=== PATIENT | female | born 1975 | race American Indian/Alaskan Native ===

== ENCOUNTER 2017-02-28 08:41 | Observation (INO) | payer MEDICAID ==
[2017-02-28] MEDS ORDERED: NACL 0.9% 1 ML, VANCOMYCIN VIAL 1,000 MG IR ONE (08:56)
[2017-02-28] MEDS ORDERED: ANCEF/STERILE WATER 2 GM/20 ML 2 GM/20 ML SYRINGE IV NR (09:00)
[2017-02-28] MEDS ORDERED: NACL 0.45% 1000 ML 1,000 ML IV SCH (09:00)
[2017-02-28 09:34] LABS: Basophils % (Auto) 0.5 % (0.0-1.8); Eosinophils % (Auto) 2.8 % (0.0-4.3); Hematocrit 44.9 % (30.3-42.9); Hemoglobin 14.5 gm/dl (10.1-14.3); Mean Corpuscular HGB Conc 32 % (30-34); Mean Corpuscular Hemoglobin 27 pg (28-32); Mean Corpuscular Volume 84 fl (79-97); Platelet Count 168 K/mm3 (140-440); Red Blood Count 5.34 M/mm3 (3.65-5.03); Red Cell Distribution Width 15.6 % (13.2-15.2); White Blood Count 6.6 K/mm3 (4.5-11.0)
[2017-02-28 09:57] LABS: INR 0.92 (0.87-1.13); Partial Thromboplastin Time 30.6 Sec. (24.2-36.6)
[2017-02-28 10:06] LABS: Anion Gap 14 mmol/L; BUN/Creatinine Ratio 13; Blood Urea Nitrogen 9 mg/dL (7-17); Carbon Dioxide 28 mmol/L (22-30); Chloride 101.2 mmol/L (98-107); Glucose 100 mg/dL (65-100); Potassium 4.8 mmol/L (3.6-5.0); Sodium 138 mmol/L (137-145)
[2017-02-28] MEDS ORDERED: MARCAINE 0.5% 30 ML INFILTRATI ONE ×2 (11:19→11:24)
[2017-02-28] MEDS ORDERED: XYLOCAINE 1% 20 mL ONE (11:19)
[2017-02-28] MEDS ORDERED: NACL 0.9% 500 ML IR ONE (11:19)
[2017-02-28] MEDS ORDERED: ANCEF/STERILE WATER 2 GM/20 ML 2 GM/20 ML SYRINGE IV ONE (11:20)
[2017-02-28] MEDS: VERSED IV ONE ×3 (11:42→12:10)
[2017-02-28] MEDS: SUBLIMAZE ONE ×3 (11:42→12:10)
[2017-02-28] MEDS ORDERED: BENADRYL ONE (11:49)
--- NOTE | 2017-02-28 13:59 | XRay Report ---
Single view chest: History: Pacemaker postop. Next Findings: Cardiomegaly. Trachea is midline. No consolidation, pneumothorax or pleural effusion. Stable pacemaker. Impression: No acute cardiopulmonary findings.
[2017-02-28] MEDS ORDERED: ANCEF/NS 1 GM/50 ML 1 GM/50 ML BAG IV SCH (14:00)
[2017-02-28] MEDS: ANCEF/NS 1 GM/50 ML 1 GM/50 ML BAG IV SCH ×2 (15:44→23:18)
[2017-02-28] MEDS: NORCO 5/325 PO PRN ×2 (18:36→22:12)
[2017-03-01 09:08] VITALS: BP 146/96
[2017-03-01] MEDS: NORCO 5/325 PO PRN (09:52)
[2017-03-01] MEDS ORDERED: COZAAR PO SCH (10:00)
[2017-03-01] MEDS ORDERED: COREG PO SCH ×3 (10:00)
[2017-03-01] MEDS ORDERED: ALDACTONE PO SCH (10:00)
--- NOTE | 2017-03-01 10:00 | Short Stay Summary ---
Short Stay Documentation Date of service: 02/28/17 - History H&P: obtained from office - Allergies and Medications Current Medications: Allergies No Known Allergies Allergy (Verified 02/28/17 09:19) Home Medications Medication Instructions Recorded Confirmed Last Taken Type Aspirin EC [Aspirin Enteric Coated 81 mg PO QDAY #30 tablet. 09/06/1602/27/17 08:00 Rx TAB] Losartan [Cozaar] 100 mg PO QDAY #30 tablet 09/07/16 02/28/17 02/27/17 Rx Albuterol Sulfate [Ventolin HFA] 2 puff IH Q4H PRN 02/28/17 02/28/17 Unknown History Carvedilol [Coreg] 25 mg PO BID 02/28/17 02/28/17 02/27/17 History Ferrous Gluconate [Fergon 325 MG 325 mg PO QDAY 02/28/17 02/28/17 02/27/17 History tab] Furosemide [Lasix TAB] 40 mg PO QDAY 02/28/17 02/28/17 02/27/17 History Spironolactone [Aldactone] 25 mg PO QDAY 02/28/17 02/28/17 02/27/17 History Active Medications Acetaminophen/Hydrocodone Bitart ([place] 5/325) 1 each PO Q6H PRN PRN Reason: Pain, Moderate (4-6) Last Admin: 03/01/17 09:52 Dose: 1 each Carvedilol (Coreg) 25 mg PO Q12HR [facility] Last Admin: 03/01/17 09:46 Dose: 25 mg Sodium Chloride (Nacl 0.45% 1000 Ml) 1,000 mls @ 50 mls/hr IV DIRECT JACE Last Admin: 02/28/17 09:41 Dose: 50 mls/hr Losartan Potassium (Cozaar) 100 mg PO QDAY JACE Last Admin: 03/01/17 09:45 Dose: 100 mg Spironolactone (Aldactone) 25 mg PO QDAY [facility] Last Admin: 03/01/17 09:46 Dose: 25 mg - Physical exam Integumentary: other (left pectoralis AICD implantation site pressure dressing removed, telfa and tegaderm dressing intact with minimal amount of old blood noted) - Brief post op/procedure progress note Date of procedure: 02/28/17 Pre-op diagnosis: NICMP Post-op diagnosis: same Procedure: AICD implantation - see operative report Anesthesia: local Estimated blood loss: none Condition: stable - Hospital course Hospital course: Pt underwent successful AICD implantation. Pt admitted for overnight observation. She remained clinically and hemodynamically stable throughout procedure and recovery and is medically cleared for discharge home today. Post- procedure CXR with no evidence of pneumothorax, post-procedure device interrogation showed normal device function. - Disposition Condition at discharge: Stable Disposition: [id number] TO HOME OR SELFCARE - Discharge Diagnoses (1) NICM (nonischemic cardiomyopathy) Status: Chronic (2) Automatic implantable cardioverter-defibrillator in situ Status: Chronic Short Stay Discharge Plan Activity: other (per discharge instructions) Diet: low salt Wound: keep clean and dry, per your surgeon's advice Special Instructions: no heavy lifting, other (left arm immobilizer ) Follow up with: [facility] [Provider Group] - 7 Days ANJELICA CASTILLO MD [Staff Physician] - 7 Days (03/20/2017 @ 8:30AM [place] office ) HAILEY CARUSO MD [Staff Physician] - 7 Days (03/11/2017 @ 8:30AM in [place] office ) PRIMARY CAREMD [Primary Care Provider] - 7 Days Prescriptions: HYDROcodone/APAP 5-325 [[place] 5-325 mg TAB] 1 each PO Q6H PRN #10 tablet PRN Reason: Pain, Moderate (4-6)
== END 2017-03-01 12:51 | disposition home or self-care (01) ==
LOC: CATHLABREC 08:41 → 4A 10:46
PROVIDERS: ADMIT Internal Medicine Cardiovascular Disease; ATTEND Internal Medicine Cardiovascular Disease
DX: I42.9 Cardiomyopathy, unspecified (principal); I50.22 Chronic systolic (congestive) heart failure; I11.0 Hypertensive heart disease with heart failure
CPT/HCPCS: 33249; 36415; 71010; 80048; 82962; 85025; 85610; 85730; 93005; 93010; 96365; 96375; C1722; C1892; C1895; G0378; J0690; J1200; J2250; J3010; J3370; Q9967

== ENCOUNTER 2017-09-23 12:59 | Emergency (ER) | payer MEDICAID, OTHER ==
--- NOTE | 2017-09-23 15:08 | XRay Report ---
RIGHT KNEE, 3 views: History: Swelling, pain The bony architecture is intact without evidence of fracture or dislocation. No significant soft tissue abnormality is seen. IMPRESSION: Normal right knee.
--- NOTE | 2017-09-23 15:26 | Emergency Department Report ---
ED Lower Extremity HPI - General Chief Complaint: Extremity Problem,Nontraumatic Stated Complaint: RIGHT LEG AND KNEE PAIN Time Seen by Provider: 09/23/17 14:56 Source: patient Mode of arrival: Ambulatory Limitations: No Limitations - History of Present Illness Initial Comments: This is a 42-year-old female nontoxic, well nourished in appearance, no acute signs of distress presents to the ED with c/o of right knee pain and calf pain x4 days. Patient denies any trauma. Patient stated developed suddenly and thinks she twisted knee prior to these symptoms. Patient denies any radiation of pain. Patient denies any joint redness, joint swelling, fever, chills, nausea, vomiting, chest pain or shortness breath. Patient denies abnormal or decreased gait. Patient denies any allergies or PMH. MD Complaint: knee injury, other (calf pain) -: days(s) (4) Injury: Knee: Right Place: home Severity: mild Severity scale (0 -10): 8 Improves With: immobilization Worsens With: weight bearing, movement, palpation Associated Symptoms: able to partially bear weight, ambulatory. denies: snap/ pop sensation, swelling, numbness, tingling, unable to bear weight - Related Data Home Medications Medication Instructions Recorded Confirmed Last Taken Albuterol Sulfate [Ventolin HFA] 2 puff IH Q4H PRN 02/28/17 02/28/17 Unknown Carvedilol [Coreg] 25 mg PO BID 02/28/17 02/28/17 02/27/17 Ferrous Gluconate [Fergon 325 MG 325 mg PO QDAY 02/28/17 02/28/17 02/27/17 tab] Furosemide [Lasix TAB] 40 mg PO QDAY 02/28/17 02/28/17 02/27/17 Spironolactone [Aldactone] 25 mg PO QDAY 02/28/17 02/28/17 02/27/17 Previous Rx's Medication Instructions Recorded Last Taken Type Aspirin EC [Aspirin Enteric Coated 81 mg PO QDAY #30 tablet. 09/06/16 08:00 Rx TAB] Losartan [Cozaar] 100 mg PO QDAY #30 tablet 09/07/16 02/27/17 Rx Carvedilol [Coreg] 25 mg PO Q12HR tablet 03/01/17 Unknown Rx HYDROcodone/APAP 5-325 [[place] 1 each PO Q6H PRN #10 tablet 03/01/17 Unknown Rx 5-325 mg TAB] Losartan [Cozaar] 100 mg PO QDAY tablet 03/01/17 Unknown Rx Spironolactone [Aldactone] 25 mg PO QDAY tablet 03/01/17 Unknown Rx Ibuprofen [Motrin] 600 mg PO Q8H PRN #30 tablet 09/23/17 Unknown Rx Allergies Allergy/AdvReac Type Severity Reaction Status Date / Time No Known Allergies Allergy Verified 02/28/17 09:19 ED Review of Systems ROS: Stated complaint: RIGHT LEG AND KNEE PAIN Other details as noted in HPI Constitutional: denies: chills, fever Eyes: denies: eye pain, eye discharge, vision change ENT: denies: ear pain, throat pain Respiratory: denies: cough, shortness of breath, wheezing Cardiovascular: denies: chest pain, palpitations Endocrine: no symptoms reported Gastrointestinal: denies: abdominal pain, nausea, diarrhea Genitourinary: denies: urgency, dysuria, discharge Musculoskeletal: arthralgia. denies: back pain, joint swelling Skin: denies: rash, lesions Neurological: denies: headache, weakness, paresthesias Psychiatric: denies: anxiety, depression Hematological/Lymphatic: denies: easy bleeding, easy bruising ED Past Medical Hx - Past Medical History Hx Hypertension: Yes (on medications 2 years) Hx Heart Attack/AMI: No Hx Congestive Heart Failure: Yes Hx Diabetes: No Hx Sickle Cell Disease: No Hx Headaches / Migraines: Yes (occasional migraines) Hx Asthma: No Hx COPD: No Hx HIV: No Additional medical history: anemia - Surgical History Hx Internal Defibrillator: Yes Additional Surgical History: Hysterectomy - Social History Smoking Status: Never Smoker Substance Use Type: None - Medications Home Medications: Home Medications Medication Instructions Recorded Confirmed Last Taken Type Aspirin EC [Aspirin Enteric Coated 81 mg PO QDAY #30 tablet. 09/06/1602/27/17 08:00 Rx TAB] Losartan [Cozaar] 100 mg PO QDAY #30 tablet 09/07/16 02/28/17 02/27/17 Rx Albuterol Sulfate [Ventolin HFA] 2 puff IH Q4H PRN 02/28/17 02/28/17 Unknown History Carvedilol [Coreg] 25 mg PO BID 02/28/17 02/28/17 02/27/17 History Ferrous Gluconate [Fergon 325 MG 325 mg PO QDAY 02/28/17 02/28/17 02/27/17 History tab] Furosemide [Lasix TAB] 40 mg PO QDAY 02/28/17 02/28/17 02/27/17 History Spironolactone [Aldactone] 25 mg PO QDAY 02/28/17 02/28/17 02/27/17 History Carvedilol [Coreg] 25 mg PO Q12HR tablet 03/01/17 Unknown Rx HYDROcodone/APAP 5-325 [[place] 1 each PO Q6H PRN #10 tablet 03/01/17 Unknown Rx 5-325 mg TAB] Losartan [Cozaar] 100 mg PO QDAY tablet 03/01/17 Unknown Rx Spironolactone [Aldactone] 25 mg PO QDAY tablet 03/01/17 Unknown Rx Ibuprofen [Motrin] 600 mg PO Q8H PRN #30 tablet 09/23/17 Unknown Rx ED Physical Exam - General Limitations: No Limitations General appearance: alert, in no apparent distress - Head Head exam: Present: atraumatic, normocephalic - Eye Eye exam: Present: normal appearance Pupils: Present: normal accommodation - ENT ENT exam: Present: normal exam, mucous membranes moist - Neck Neck exam: Present: normal inspection, full ROM. Absent: tenderness, meningismus, lymphadenopathy - Respiratory Respiratory exam: Present: normal lung sounds bilaterally. Absent: respiratory distress, wheezes, rales, rhonchi, stridor, chest wall tenderness, accessory muscle use, decreased breath sounds, prolonged expiratory - Cardiovascular Cardiovascular Exam: Present: regular rate, normal rhythm, normal heart sounds. Absent: irregular rhythm, systolic murmur, diastolic murmur, rubs, gallop - GI/Abdominal GI/Abdominal exam: Present: soft, normal bowel sounds. Absent: distended, tenderness, guarding, rebound, rigid, diminished bowel sounds - Rectal Rectal exam: Present: deferred - Extremities Exam Extremities exam: Present: normal inspection, full ROM, tenderness, normal capillary refill. Absent: joint swelling - Expanded Lower Extremity Exam Right Hip exam: Present: normal inspection, full ROM. Absent: tenderness, swelling Upper Leg exam: Present: normal inspection, full ROM. Absent: tenderness, swelling Knee exam: Present: normal inspection, full ROM, tenderness, full knee extension. Absent: swelling, abrasion, laceration, ecchymosis, deformity, crepidus, dislocation, erythema, effusion, pain w/ pronation/supination, posterior draw sign, pain/laxity with valgus, pain/laxity with varus Lower Leg exam: Present: normal inspection, full ROM, tenderness (calf region). Absent: swelling, abrasion, laceration, ecchymosis, deformity, crepidus, dislocation, erythema, palpable cord, Estefany's sign Ankle exam: Present: normal inspection, full ROM. Absent: tenderness, swelling , abrasion, laceration, ecchymosis, deformity, crepidus, dislocation, erythema, anterior draw sign Foot/Toe exam: Present: normal inspection, full ROM. Absent: tenderness, swelling Neuro vascular tendon exam: Present: no vascular compromise. Absent: pulse deficit, abnormal cap refill, motor deficit, sensory deficit, tendon deficit, extremity cold to touch, pallor, abnormal 2-point discrimination, decreased fine /light touch, foot drop, peroneal nerve deficit, significant pain with passive ROM of distal joint Gait: Positive: observed and normal - Back Exam Back exam: Present: normal inspection, full ROM - Neurological Exam Neurological exam: Present: alert, oriented X3, normal gait - Psychiatric Psychiatric exam: Present: normal affect, normal mood - Skin Skin exam: Present: warm, dry, intact, normal color. Absent: rash ED Course Vital Signs 09/23/17 13:57 Temperature 98 F Pulse Rate 93 H Respiratory 20 Rate Blood Pressure 132/87 O2 Sat by Pulse 95 Oximetry - Reevaluation(s) Reevaluation #1: 09/23/17 16:04 Patient is speaking in full sentences with no signs of distress noted. ED Lower Extremity MDM - Medical Decision Making This is a 42-year-old female that presents with right knee strain. Patient is stable and was examined by me. I referred patient to an orthopedic doctor for further evaluation for possible MRI. Doppler US for r/o DVT/SVT obtained and negative. X-ray has been obtained and dictated by the radiologist. Patient is notified of the x-ray report with noted by the patient. Patient does have normal gait with no tenderness and no joint swelling. No ecchymosis. no joint redness or swelling. Not warm to touch. No signs of cellulites present. Patient received a knee immobilize. Patient was instructed to RICE therapy. Patient received Motrin for pain. Patient is discharged with Motrin. At time of discharge, the patient does not seem toxic or ill in appearance. No acute signs of distress noted. Patient agrees to discharge treatment plan of care. No further questions noted by the patient. Critical care attestation.: If time is entered above; I have spent that time in minutes in the direct care of this critically ill patient, excluding procedure time. ED Disposition Clinical Impression: Strain of right knee Qualifiers: Encounter type: initial encounter Qualified Code(s): S86.911A - Strain of unspecified muscle(s) and tendon(s) at lower leg level, right leg, initial encounter Disposition: TO HOME OR SELFCARE Is pt being admited?: No Does the pt Need Aspirin: No Condition: Stable Instructions: Knee Pain (ED), RICE Therapy (ED), Knee Immobilizer (ED), Ibuprofen (By mouth) Additional Instructions: Follow-up with a orthopedic doctor in 3-5 days or if symptoms worsen and continue return to emergency room as soon as possible. Prescriptions: Ibuprofen [Motrin] 600 mg PO Q8H PRN #30 tablet PRN Reason: Pain Referrals: PAZ FAM MD [Primary Care Provider] - 3-5 Days PRIMARY CARE, [Referring] - 3-5 Days DIOGENES KENDALL MD [Staff Physician] - 3-5 Days [facility] [place] [Outside] - 3-5 Days [facility] [Outside] - 3-5 Days Forms: Work/School Release Form(ED)
[2017-09-23] MEDS ORDERED: MOTRIN PO ONE (16:04)
[2017-09-23 17:18] VITALS: BP 146/100
--- NOTE | 2017-09-25 13:41 | Vascular Lab Report ---
Right Lower Extremity Venous Duplex Study: Reason for Exam: Pain and swelling of the right lower extremity. Comments on the Right: All veins visualized are freely compressible without evidence of internal echogenicity. Flow is spontaneous and phasic throughout. No evidence of acute or chronic thrombus is seen in any of the vessels visualized. A soft tissue change in the right knee area is consistent with a Yoon's cyst. Comments on the Left: A limited duplex study was done of the proximal veins of the left lower extremity. All veins visualized are freely compressible without evidence of internal echogenicity. Flow is spontaneous and phasic throughout. No evidence of acute or chronic thrombus is seen in any of the vessels visualized. Impression: No evidence of acute or chronic deep venous thrombosis in the right lower extremity. A soft tissue change in the right knee area is consistent with a Yoon's cyst.
== END 2017-09-23 17:18 | disposition home or self-care (01) ==
LOC: ED 12:59
DX: S86.911A Strain of unspecified muscle(s) and tendon(s) at lower leg level, right leg, initial encounter (principal); M79.661 Pain in right lower leg; I11.0 Hypertensive heart disease with heart failure; G43.909 Migraine, unspecified, not intractable, without status migrainosus; Z86.2 Personal history of diseases of the blood and blood-forming organs and certain disorders involving the immune mechanism; Z90.710 Acquired absence of both cervix and uterus; X50.1XXA Overexertion from prolonged static or awkward postures, initial encounter; Y93.89 Activity, other specified; Y99.8 Other external cause status; Y92.89 Other specified places as the place of occurrence of the external cause
CPT/HCPCS: 99284

== ENCOUNTER 2019-03-30 16:52 | Inpatient (IN) | payer OTHER ==
--- NOTE | 2019-03-30 17:48 | Event Note ---
ED Screening Note Date of service: 03/30/19 Time: 17:43 ED Screening Note: 43 y o female presents to Ed cc of 710 chest pain x thhis am pmh: htn, chf This initial assessment/diagnostic orders/clinical plan/treatment(s) is/are subject to change based on patients health status, clinical progression and re- assessment by fellow clinical providers in the ED. Further treatment and workup at subsequent clinical providers discretion. Patient/guardian urged not to elope from the ED as their condition may be serious if not clinically assessed and managed. Initial orders include: labs
--- NOTE | 2019-03-30 18:20 | XRay Report ---
CHEST 2 VIEWS INDICATION: Dyspnea. COMPARISON: 02/28/2017. FINDINGS: Support devices: ICD unchanged. Heart: Moderate cardiomegaly. Lungs/Pleura: Mild edema. Negative for localized infiltrate. No significant pleural effusion. IMPRESSION: Cardiomegaly with mild edema. Signer Name: Margarito Fallon MD Signed: 03/30/2019 6:16 PM Workstation Name: [id number]
[2019-03-30 19:40] LABS: Basophils % (Auto) 0.4 % (0.0-1.8); Eosinophils # (Auto) 0.2 K/mm3 (0.0-0.4); Hematocrit 35.8 % (30.3-42.9); Hemoglobin 11.7 gm/dl (10.1-14.3); Lymphocytes # (Auto) 2.3 K/mm3 (1.2-5.4); Lymphocytes % (Auto) 29.3 % (13.4-35.0); Mean Corpuscular HGB Conc 33 % (30-34); Mean Corpuscular Volume 87 fl (79-97); Monocytes # (Auto) 0.5 K/mm3 (0.0-0.8); Monocytes % (Auto) 6.3 % (0.0-7.3); Platelet Count 165 K/mm3 (140-440); Red Blood Count 4.13 M/mm3 (3.65-5.03); Red Cell Distribution Width 14.7 % (13.2-15.2)
[2019-03-30 19:54] LABS: BUN/Creatinine Ratio 11; Blood Urea Nitrogen 11 mg/dL (7-17); Calcium 8.9 mg/dL (8.4-10.2); Hemolysis Index 0
--- NOTE | 2019-03-30 22:23 | Emergency Department Report ---
ED General Adult HPI - General Chief complaint: Dyspnea/Respdistress Stated complaint: SOB/COUGH Time Seen by Provider: 03/30/19 22:08 Source: patient Mode of arrival: Ambulatory Limitations: No Limitations - History of Present Illness Initial comments: 44-year-old female with a history of CHF with an ejection fraction of 15% presents with complaint of shortness of breath that worsened since this morning. Patient states that she's also had dyspnea with exertion describes orthopnea as well. Patient states she's been compliant with all of her medications. Patient states that she had noted some wheezing but denies any chest pain. Patient states she's had no cough. Severity scale (0 -10): 0 - Related Data Home Medications Medication Instructions Recorded Confirmed Last Taken Albuterol Sulfate [Ventolin HFA] 2 puff IH Q4H PRN 02/28/17 02/28/17 Unknown Ferrous Gluconate [Fergon 325 MG 325 mg PO QDAY 02/28/17 02/28/17 02/27/17 tab] Furosemide [Lasix TAB] 40 mg PO QDAY 02/28/17 02/28/17 02/27/17 Spironolactone [Aldactone] 25 mg PO QDAY 02/28/17 02/28/17 02/27/17 carvediloL [Coreg] 25 mg PO BID 02/28/17 02/28/17 02/27/17 Previous Rx's Medication Instructions Recorded Last Taken Type Aspirin EC [Halfprin EC] 81 mg PO QDAY #30 tablet. 09/06/16 02/27/17 08:00 Rx Losartan [Cozaar] 100 mg PO QDAY #30 tablet 09/07/16 02/27/17 Rx HYDROcodone/APAP 5-325 [[place] 1 each PO Q6H PRN #10 tablet 03/01/17 Unknown Rx 5-325 mg TAB] Losartan [Cozaar] 100 mg PO QDAY tablet 03/01/17 Unknown Rx Spironolactone [Aldactone] 25 mg PO QDAY tablet 03/01/17 Unknown Rx carvediloL [Coreg] 25 mg PO Q12HR tablet 03/01/17 Unknown Rx Ibuprofen [Motrin] 600 mg PO Q8H PRN #30 tablet 09/23/17 Unknown Rx Allergies Allergy/AdvReac Type Severity Reaction Status Date / Time No Known Allergies Allergy Verified 03/30/19 17:44 ED Review of Systems ROS: Stated complaint: SOB/COUGH Other details as noted in HPI Constitutional: denies: chills, fever Eyes: denies: eye pain, eye discharge, vision change ENT: denies: ear pain, throat pain Respiratory: SOB at rest Cardiovascular: denies: chest pain, palpitations Endocrine: no symptoms reported Gastrointestinal: denies: abdominal pain, nausea, diarrhea Genitourinary: denies: urgency, dysuria, discharge Musculoskeletal: denies: back pain, joint swelling, arthralgia Skin: denies: rash, lesions Neurological: denies: headache, weakness, paresthesias Psychiatric: denies: anxiety, depression Hematological/Lymphatic: denies: easy bleeding, easy bruising ED Past Medical Hx - Past Medical History Previous Medical History?: Yes Hx Hypertension: Yes (on medications 2 years) Hx Heart Attack/AMI: No Hx Congestive Heart Failure: Yes Hx Diabetes: No Hx Sickle Cell Disease: No Hx Headaches / Migraines: Yes (occasional migraines) Hx Asthma: No Hx COPD: No Hx HIV: No Additional medical history: anemia - Surgical History Past Surgical History?: Yes Hx Internal Defibrillator: Yes Additional Surgical History: Hysterectomy - Social History Smoking Status: Never Smoker Substance Use Type: None - Medications Home Medications: Home Medications Medication Instructions Recorded Confirmed Last Taken Type Aspirin EC [Halfprin EC] 81 mg PO QDAY #30 tablet. 09/06/16 02/28/17 02/27/17 08:00 Rx Losartan [Cozaar] 100 mg PO QDAY #30 tablet 09/07/16 02/28/17 02/27/17 Rx Albuterol Sulfate [Ventolin HFA] 2 puff IH Q4H PRN 02/28/17 02/28/17 Unknown History Ferrous Gluconate [Fergon 325 MG 325 mg PO QDAY 02/28/17 02/28/17 02/27/17 History tab] Furosemide [Lasix TAB] 40 mg PO QDAY 02/28/17 02/28/17 02/27/17 History Spironolactone [Aldactone] 25 mg PO QDAY 02/28/17 02/28/17 02/27/17 History carvediloL [Coreg] 25 mg PO BID 02/28/17 02/28/17 02/27/17 History HYDROcodone/APAP 5-325 [[place] 1 each PO Q6H PRN #10 tablet 03/01/17 Unknown Rx 5-325 mg TAB] Losartan [Cozaar] 100 mg PO QDAY tablet 03/01/17 Unknown Rx Spironolactone [Aldactone] 25 mg PO QDAY tablet 03/01/17 Unknown Rx carvediloL [Coreg] 25 mg PO Q12HR tablet 03/01/17 Unknown Rx Ibuprofen [Motrin] 600 mg PO Q8H PRN #30 tablet 09/23/17 Unknown Rx ED Physical Exam - General Limitations: No Limitations General appearance: alert, other (mild distress; awake) - Head Head exam: Present: atraumatic, normocephalic - Eye Eye exam: Present: normal appearance - ENT ENT exam: Present: mucous membranes moist - Neck Neck exam: Present: normal inspection - Respiratory Respiratory exam: Present: respiratory distress (mild), wheezes (appreciated in bases of lungs) - Cardiovascular Cardiovascular Exam: Present: regular rate, normal rhythm. Absent: systolic murmur, diastolic murmur, rubs, gallop - GI/Abdominal GI/Abdominal exam: Present: soft, normal bowel sounds - Extremities Exam Extremities exam: Present: normal inspection - Back Exam Back exam: Present: normal inspection - Neurological Exam Neurological exam: Present: alert, oriented X3 - Psychiatric Psychiatric exam: Present: normal affect, normal mood - Skin Skin exam: Present: warm, dry, intact, normal color. Absent: rash ED Course Vital Signs 03/30/19 03/30/19 03/30/19 17:42 22:04 22:08 Temperature 97.9 F Pulse Rate 97 H 82 Respiratory 20 20 22 Rate Blood Pressure Blood Pressure 146/93 129/74 [Right] O2 Sat by Pulse 96 98 Oximetry 03/30/19 03/30/19 03/30/19 22:15 22:45 23:00 Temperature Pulse Rate 82 88 86 Respiratory 34 H 23 16 Rate Blood Pressure 130/82 142/76 132/71 Blood Pressure [Right] O2 Sat by Pulse 98 98 96 Oximetry 03/30/19 03/30/19 23:15 23:31 Temperature Pulse Rate 86 85 Respiratory 14 27 H Rate Blood Pressure 132/71 132/71 Blood Pressure [Right] O2 Sat by Pulse 97 96 Oximetry ED Medical Decision Making - Lab Data Result diagrams: 03/30/19 19:15 03/30/19 19:15 - EKG Data EKG shows normal: sinus rhythm Rate: normal - EKG Data Interpretation: LVH - Medical Decision Making Patient has a CT that shows no evidence of pulmonary embolism. Patient received Lasix IV therapy while here in emergency department. Patient also received albuterol and was placed on oxygen by nasal cannula. Patient to be admitted to the hospitalist service for continued management and treatment. - Differential Diagnosis CHF exacerbation; NSTEMI; STEMI; electrolyte abnormality; anemia Critical care attestation.: If time is entered above; I have spent that time in minutes in the direct care of this critically ill patient, excluding procedure time. ED Disposition Clinical Impression: Congestive heart failure Disposition: OP ADMIT IP TO THIS HOSP Is pt being admited?: Yes Does the pt Need Aspirin: No Condition: Fair Referrals: PRIMARY CARE, [Primary Care Provider] - 3-5 Days Time of Disposition: 01:14 Print Language: ROMANSH
[2019-03-30] MEDS ORDERED: FUROSEMIDE 40 MG/4 ML INJ IV ONE (22:39)
[2019-03-30] MEDS ORDERED: ALBUTEROL 2.5 MG/3 ML NEBU IH ONE (22:39)
--- NOTE | 2019-03-31 00:57 | Cat Scan Report ---
CT angiography of the chest with 2-D reconstructions INDICATION: Shortness of breath Thin section axial images were obtained as well as 2-D reformatted MIP images in all 3 planes FINDINGS: There is no hilar or mediastinal adenopathy. No left pleural or pericardial effusion. Lung windows show no nodules, masses or infiltrates. There is no thoracic aortic aneurysm or dissection pr esent. Routine axial images as well as 2-D reconstructions through the pulmonary arteries show no akilah dence of emboli. Cardiomegaly is seen with ICD in place on the left. There is interstitial edema with septal thickening and slight density at the lung bases with a minimal right effusion. IMPRESSION: The findings are likely due to early heart failure. No pneumonia or PTE seen. Automated exposure control was utilized to diminish radiation dose. Signer Name: Doug Sosa MD Signed: 03/31/2019 12:52 AM Workstation Name: [id number]
--- NOTE | 2019-03-31 03:26 | History and Physical Report ---
<NERILARA M. - Last Filed: 03/31/19 05:26> History of Present Illness Date of examination: 03/31/19 Date of admission: 03/31/2019 Chief complaint: CHF Exacerbation History of present illness: Patient is a 43-year-old female patient with past medical history of anemia, sleep apnea ,hypertension and CHF who presents to [facility] ER with complaints of dyspnea on exertion and shortness of breath pain since this afternoon. Patient states she has been finding it increasingly more difficult to ambulate from her mailbox to her front door over the last couple weeks. Patient states she finds relief by resting, and her shortness of breath has been exacerbated by walks. Currently denies any chest pain. Past History Past Medical History: heart failure, hypertension Past Surgical History: hysterectomy Social history: denies: smoking, alcohol abuse Family history: diabetes, hypertension Medications and Allergies Allergies Allergy/AdvReac Type Severity Reaction Status Date / Time No Known Allergies Allergy Verified 03/30/19 17:44 Home Medications Medication Instructions Recorded Confirmed Last Taken Type Aspirin EC [Halfprin EC] 81 mg PO QDAY #30 tablet. 09/06/16 03/31/19 02/27/17 08:00 Rx Losartan [Cozaar] 100 mg PO QDAY #30 tablet 09/07/16 03/31/19 02/27/17 Rx carvediloL [Coreg] 25 mg PO BID 02/28/17 03/31/19 02/27/17 History HYDROcodone/APAP 5-325 [[place] 1 each PO Q6H PRN #10 tablet 03/01/17 03/31/19 Unknown Rx 5-325 mg TAB] Furosemide [Lasix TAB] 40 mg PO QDAY #30 tablet 04/02/19 Unknown Rx Review of Systems Constitutional: fatigue Ears, nose, mouth and throat: no decreased hearing, no nose pain, no nasal congestion Breasts: no discharge, no pain Cardiovascular: shortness of breath, dyspnea on exertion, high blood pressure Respiratory: no cough, no pain, no home oxygen Gastrointestinal: no vomiting, no diarrhea, no constipation Genitourinary Female: no pelvic pain, no flank pain Menstruation: post hysterectomy Rectal: no pain Musculoskeletal: no low back pain, no shooting leg pain, no leg numbness/tingling Integumentary: no rash, no boils, no dryness Neurological: no seizures, no syncope, no tremors Psychiatric: no disorientation, no hallucinations, no hopelessness, no anhedonia Endocrine: no heat intolerance, no polyphagia, no excessive thirst Hematologic/Lymphatic: no easy bruising, no easy bleeding Allergic/Immunologic: wheezing Exam - Constitutional Vitals: Temp Pulse Resp BP Pulse Ox 97.9 F 80 30 H 120/68 98 03/30/19 17:42 03/31/19 02:31 03/31/19 02:31 03/31/19 02:31 03/31/19 02:31 General appearance: Present: no acute distress - EENT Eyes: Present: PERRL ENT: hearing intact, clear oral mucosa - Neck Neck: Present: supple, normal ROM - Respiratory Respiratory effort: normal Respiratory: bilateral: CTA - Cardiovascular Heart Sounds: Present: S1 & S2. Absent: rub, click - Extremities Extremities: pulses symmetrical, No edema Peripheral Pulses: within normal limits - Abdominal General gastrointestinal: Present: soft, non-tender, non-distended, normal bowel sounds Female genitourinary: Present: normal - Integumentary Integumentary: Present: clear, warm, dry - Musculoskeletal Musculoskeletal: gait normal, strength equal bilaterally - Psychiatric Psychiatric: appropriate mood/affect, intact judgment & insight - Neurologic Neurologic: CNII-XII intact, moves all extremities Results - Labs CBC & Chem 7: 03/30/19 19:15 03/30/19 19:15 Labs: Laboratory Last Values WBC 7.8 K/mm3 (4.5-11.0) 03/30/19 19:15 RBC 4.13 M/mm3 (3.65-5.03) 03/30/19 19:15 Hgb 11.7 gm/dl (10.1-14.3) 03/30/19 19:15 Hct 35.8 % (30.3-42.9) 03/30/19 19:15 MCV 87 fl (79-97) 03/30/19 19:15 MCH 28 pg (28-32) 03/30/19 19:15 MCHC 33 % (30-34) 03/30/19 19:15 RDW 14.7 % (13.2-15.2) 03/30/19 19:15 Plt Count 165 K/mm3 (140-440) 03/30/19 19:15 Lymph % (Auto) 29.3 % (13.4-35.0) 03/30/19 19:15 [place] % (Auto) 6.3 % (0.0-7.3) 03/30/19 19:15 Eos % (Auto) 2.0 % (0.0-4.3) 03/30/19 19:15 Baso % (Auto) 0.4 % (0.0-1.8) 03/30/19 19:15 Lymph # 2.3 K/mm3 (1.2-5.4) 03/30/19 19:15 [place] # 0.5 K/mm3 (0.0-0.8) 03/30/19 19:15 Eos # 0.2 K/mm3 (0.0-0.4) 03/30/19 19:15 Baso # 0.0 K/mm3 (0.0-0.1) 03/30/19 19:15 Seg Neutrophils % 62.0 % (40.0-70.0) 03/30/19 19:15 Seg Neutrophils # 4.8 K/mm3 (1.8-7.7) 03/30/19 19:15 Sodium 139 mmol/L (137-145) 03/30/19 19:15 Potassium 4.2 mmol/L (3.6-5.0) 03/30/19 19:15 Chloride 102.2 mmol/L (98-107) 03/30/19 19:15 Carbon Dioxide 21 mmol/L (22-30) L 03/30/19 19:15 Anion Gap 20 mmol/L 03/30/19 19:15 BUN 11 mg/dL (7-17) 03/30/19 19:15 Creatinine 1.0 mg/dL (0.7-1.2) 03/30/19 19:15 Estimated GFR > 60 ml/min 03/30/19 19:15 BUN/Creatinine Ratio 11 % 03/30/19 19:15 Glucose 95 mg/dL (65-100) 03/30/19 19:15 Calcium 8.9 mg/dL (8.4-10.2) 03/30/19 19:15 Troponin T < 0.010 ng/mL (0.00-0.029) 03/30/19 19:15 NT-Pro-B Natriuret Pep 1898 pg/mL (0-450) H 03/30/19 19:15 - Imaging and Cardiology EKG: report reviewed (sinus rhythm,lvh with secondary repolarization abnormality) Chest x-ray: report reviewed (cardiomegaly with mild edema) CT scan - chest: report reviewed (Interstitial edema with septal thickening and slight density at lung bases with minimal right effusion. Findings likely due to early heart failure) Assessment and Plan Assessment and plan: CHF exacerbation -09/06/18 echocardiogram EF 15-20% -Lasix 40 mg IV twice a day - cardiology consult Hypertension -Resume home meds after reconciliation -Monitor q shift Obesity - lifestyle modifications DVT Prophylaxis - Heparin -SCDs Advance Directives: Yes VTE prophylaxis?: Chemical Plan of care discussed with patient/family: Yes <KAMINI GUARDADO - Last Filed: 04/04/19 23:48> History of Present Illness Date of admission: 03/31/19 01:15 Medications and Allergies Active Meds: Active Medications Acetaminophen (Tylenol) 650 mg PO Q4H PRN PRN Reason: Pain MILD(1-3)/Fever >100.5/BAILEY Aspirin (Halfprin Ec) 81 mg PO QDAY JACE Carvedilol (Coreg) 25 mg PO BID JACE Furosemide (Lasix) 40 mg IV 0600,1800 JACE Heparin Sodium (Porcine) (Heparin) 5,000 unit SUB-Q Q12HR JACE Miscellaneous Medication (Losartan [Cozaar]) 100 mg PO QDAY JACE Ondansetron HCl (Zofran) 4 mg IV Q8H PRN PRN Reason: Nausea And Vomiting Sodium Chloride (Sodium Chloride Flush Syringe 10 Ml) 10 ml IV BID JACE Sodium Chloride (Sodium Chloride Flush Syringe 10 Ml) 10 ml IV PRN PRN PRN Reason: LINE FLUSH Exam - Constitutional Vitals: Temp Pulse Resp BP Pulse Ox 97.9 F 81 18 123/69 99 03/30/19 17:42 03/31/19 04:31 03/31/19 04:00 03/31/19 04:31 03/31/19 04:31 Results - Labs CBC & Chem 7: 03/30/19 19:15 04/01/19 04:30 Labs: Laboratory Last Values WBC 7.8 K/mm3 (4.5-11.0) 03/30/19 19:15 RBC 4.13 M/mm3 (3.65-5.03) 03/30/19 19:15 Hgb 11.7 gm/dl (10.1-14.3) 03/30/19 19:15 Hct 35.8 % (30.3-42.9) 03/30/19 19:15 MCV 87 fl (79-97) 03/30/19 19:15 MCH 28 pg (28-32) 03/30/19 19:15 MCHC 33 % (30-34) 03/30/19 19:15 RDW 14.7 % (13.2-15.2) 03/30/19 19:15 Plt Count 165 K/mm3 (140-440) 03/30/19 19:15 Lymph % (Auto) 29.3 % (13.4-35.0) 03/30/19 19:15 [place] % (Auto) 6.3 % (0.0-7.3) 03/30/19 19:15 Eos % (Auto) 2.0 % (0.0-4.3) 03/30/19 19:15 Baso % (Auto) 0.4 % (0.0-1.8) 03/30/19 19:15 Lymph # 2.3 K/mm3 (1.2-5.4) 03/30/19 19:15 [place] # 0.5 K/mm3 (0.0-0.8) 03/30/19 19:15 Eos # 0.2 K/mm3 (0.0-0.4) 03/30/19 19:15 Baso # 0.0 K/mm3 (0.0-0.1) 03/30/19 19:15 Seg Neutrophils % 62.0 % (40.0-70.0) 03/30/19 19:15 Seg Neutrophils # 4.8 K/mm3 (1.8-7.7) 03/30/19 19:15 Sodium 139 mmol/L (137-145) 03/30/19 19:15 Potassium 4.2 mmol/L (3.6-5.0) 03/30/19 19:15 Chloride 102.2 mmol/L (98-107) 03/30/19 19:15 Carbon Dioxide 21 mmol/L (22-30) L 03/30/19 19:15 Anion Gap 20 mmol/L 03/30/19 19:15 BUN 11 mg/dL (7-17) 03/30/19 19:15 Creatinine 1.0 mg/dL (0.7-1.2) 03/30/19 19:15 Estimated GFR > 60 ml/min 03/30/19 19:15 BUN/Creatinine Ratio 11 % 03/30/19 19:15 Glucose 95 mg/dL (65-100) 03/30/19 19:15 Calcium 8.9 mg/dL (8.4-10.2) 03/30/19 19:15 Troponin T < 0.010 ng/mL (0.00-0.029) 03/30/19 19:15 NT-Pro-B Natriuret Pep 1898 pg/mL (0-450) H 03/30/19 19:15 Assessment and Plan Assessment and plan: 43-year-old woman with a history of CHF, EF of 15%, hypertension, cirrhosis emergency room with complaints of shortness of breath, PND, orthopnea, generalized weakness. She states she is compliant with medication and diet. Patient with acute systolic heart failure, agree with IV Lasix, in addition start beta rosales, ARB, aspirin, check cardiac enzymes, echo, monitor I/Os
[2019-03-31] MEDS ORDERED: ACETAMINOPHEN 325 MG TAB PO PRN (03:42)
[2019-03-31] MEDS ORDERED: ONDANSETRON 4 MG/2 ML INJ IV PRN (03:42)
[2019-03-31] MEDS ORDERED: FUROSEMIDE 40 MG/4 ML INJ ONE (06:25)
[2019-03-31] MEDS: FUROSEMIDE 40 MG/4 ML INJ IV SCH ×2 (06:25→19:15)
[2019-03-31 07:52] LABS: Creatine Kinase MB 2.5 ng/mL (0.0-4.0)
--- NOTE | 2019-03-31 11:03 | Consultation ---
History of Present Illness Consult date: 03/31/19 Requesting physician: LARA HE Consult reason: congestive heart failure History of present illness: The pt is a 43 YO female with a past medical history of NICMP, AICD in situ (placed 02/2017), HTN, DM, sleep apnea, pulm HTN. She is followed in our office by Dr. Hughes. She presented with c/o generalized weakness, SOB, orthopnea and mild BLE swelling for 1 day prior to arrival. She also noted some wheezing. She denies any chest pain, palpitations, n/v, diaphoresis, dizziness or syncope. She reports compliance with her home medications. Echo done 12/2016 showed EF 15-20%, restrictive diastolic filling, RA mod e nlarged, mild to mod MR, mod TR, mild to mod pulm HTN with RVSP 40mmHg. Lexiscan MPI stress test done 08/2016 was negative for ischemia, EF 17%. Past History Past Medical History: diabetes, heart failure, hypertension, other ([place]) Past Surgical History: hysterectomy, Other (AICD) Social history: denies: smoking, alcohol abuse Family history: diabetes, hypertension Medications and Allergies Allergies Allergy/AdvReac Type Severity Reaction Status Date / Time No Known Allergies Allergy Verified 03/30/19 17:44 Home Medications Medication Instructions Recorded Confirmed Last Taken Type Aspirin EC [Halfprin EC] 81 mg PO QDAY #30 tablet. 09/06/16 03/31/19 02/27/17 08:00 Rx Losartan [Cozaar] 100 mg PO QDAY #30 tablet 09/07/16 03/31/19 02/27/17 Rx carvediloL [Coreg] 25 mg PO BID 02/28/17 03/31/19 02/27/17 History HYDROcodone/APAP 5-325 [[place] 1 each PO Q6H PRN #10 tablet 03/01/17 Unknown Rx 5-325 mg TAB] Active Meds: Active Medications Acetaminophen (Tylenol) 650 mg PO Q4H PRN PRN Reason: Pain MILD(1-3)/Fever >100.5/[place] Aspirin (Halfprin Ec) 81 mg PO QDAY JACE Carvedilol (Coreg) 25 mg PO BID JACE Furosemide (Lasix) 40 mg IV 0600,1800 JACE Last Admin: 03/31/19 06:25 Dose: 40 mg Documented by: Heparin Sodium (Porcine) (Heparin) 5,000 unit SUB-Q Q12HR [facility] Losartan Potassium (Cozaar) 100 mg PO QDAY JACE Ondansetron HCl (Zofran) 4 mg IV Q8H PRN PRN Reason: Nausea And Vomiting Sodium Chloride (Sodium Chloride Flush Syringe 10 Ml) 10 ml IV BID JACE Sodium Chloride (Sodium Chloride Flush Syringe 10 Ml) 10 ml IV PRN PRN PRN Reason: LINE FLUSH Review of Systems Constitutional: no fever, no chills, no sweats Ears, nose, mouth and throat: no ear pain, no nose pain, no sinus pressure, no sinus pain Cardiovascular: orthopnea, edema, shortness of breath, dyspnea on exertion, paroxysmal nocturnal dyspnea, leg edema, no chest pain, no palpitations, no rapid/irregular heart beat, no syncope, no lightheadedness Respiratory: shortness of breath, dyspnea on exertion, no cough, no congestion, no wheezing, no pain on inspiration Gastrointestinal: no abdominal pain, no nausea, no vomiting, no diarrhea, no constipation, no change in bowel habits Genitourinary Female: no pelvic pain, no flank pain, no dysuria, no urinary frequency, no urgency Musculoskeletal: no neck stiffness, no neck pain, no shooting arm pain, no arm numbness/tingling, no low back pain, no shooting leg pain Integumentary: no rash, no pruritis, no redness, no sores, no wounds Neurological: no head injury, no paralysis, no weakness, no parathesias, no numbness, no tingling, no seizures, no syncope Psychiatric: no anxiety Endocrine: no cold intolerance, no heat intolerance Hematologic/Lymphatic: no easy bruising, no easy bleeding Allergic/Immunologic: no urticaria Physical Examination Vital Signs Temp Pulse Resp BP Pulse Ox 97.9 F 97 H 20 146/93 96 03/30/19 17:42 03/30/19 17:42 03/30/19 17:42 03/30/19 17:42 03/30/19 17:42 General appearance: no acute distress HEENT: Positive: PERRL, Normocephaly, Mucus Membranes Moist Neck: Positive: neck supple, trachea midline Cardiac: Positive: Reg Rate and Rhythm, S1/S2 Lungs: Positive: Decreased Breath Sounds, Wheezes (scattered) Neuro: Positive: Grossly Intact Abdomen: Negative: Tender Skin: Negative: Rash Musculoskeletal: No Pain Extremities: Absent: edema Results 03/30/19 19:15 03/30/19 19:15 Cardiac Enzymes 03/31/19 Range/Units 06:49 CK-MB (CK-2) 2.5 (0.0-4.0) ng/mL CBC 03/30/19 Range/Units 19:15 WBC 7.8 (4.5-11.0) K/mm3 RBC 4.13 (3.65-5.03) M/mm3 Hgb 11.7 (10.1-14.3) gm/dl Hct 35.8 (30.3-42.9) % Plt Count 165 (140-440) K/mm3 Lymph # 2.3 (1.2-5.4) K/mm3 [place] # 0.5 (0.0-0.8) K/mm3 Eos # 0.2 (0.0-0.4) K/mm3 Baso # 0.0 (0.0-0.1) K/mm3 Comprehensive Metabolic Panel 03/30/19 Range/Units 19:15 Sodium 139 (137-145) mmol/L Potassium 4.2 (3.6-5.0) mmol/L Chloride 102.2 (98-107) mmol/L Carbon Dioxide 21 L (22-30) mmol/L BUN 11 (7-17) mg/dL Creatinine 1.0 (0.7-1.2) mg/dL Glucose 95 (65-100) mg/dL Calcium 8.9 (8.4-10.2) mg/dL - Imaging and Cardiology Echo: report reviewed (12/2016 showed EF 15-20%, restrictive diastolic filling, RA mod enlarged, mild to mod MR, mod TR, mild to mod pulm HTN with RVSP 40mmHg. ) EKG: report reviewed, image reviewed EKG interpretations - Telemetry EKG Rhythm: Sinus Rhythm - EKG Sinus rhythms and dysrhythmias: sinus rhythm Chamber hypertrophy or enlargement: left ventricular hypertro Assessment and Plan Agree with present cardiac management. F/u echo. The patient has been seen in conjunction with Dr. Caraballo who agrees with the assessment and plan of care. - Patient Problems (1) Acute HFrEF (heart failure with reduced ejection fraction) Current Visit: Yes Status: Acute (2) NICM (nonischemic cardiomyopathy) Current Visit: Yes Status: Chronic (3) Automatic implantable cardioverter-defibrillator in situ Current Visit: Yes Status: Chronic (4) HTN (hypertension) Current Visit: Yes Status: Chronic (5) Diabetes Current Visit: Yes Status: Chronic (6) Sleep apnea Current Visit: Yes Status: Chronic (7) Pulmonary HTN Current Visit: Yes Status: Chronic
[2019-03-31] MEDS: LOSARTAN 50 MG TAB PO SCH (12:24)
[2019-03-31] MEDS: carvediloL 25 MG TAB PO SCH ×2 (12:25→22:33)
[2019-03-31] MEDS: ASPIRIN EC 81 MG TAB PO SCH (12:25)
[2019-03-31] MEDS: HEPARIN 5,000 UNIT/1 ML VIAL SUB-Q SCH ×2 (12:26→22:33)
--- NOTE | 2019-03-31 13:00 | Event Note ---
Date: 03/31/19 Patient seen and examined cont current Mx and plan for CHF exacerbation
[2019-03-31 15:35] LABS: Creatine Kinase MB 2.4 ng/mL (0.0-4.0)
[2019-03-31 16:54] LABS: Bilirubin,Urine NEG (Negative); Blood,Urine NEG (Negative); Color,Urine Yellow (Yellow); Mucus,Urine FEW /HPF; Protein,Urine <15 mg/dL mg/dL (Negative)
[2019-04-01 06:17] LABS: BUN/Creatinine Ratio 15; Blood Urea Nitrogen 12 mg/dL (7-17); Calcium 8.7 mg/dL (8.4-10.2); Hemolysis Index 3
[2019-04-01] MEDS: FUROSEMIDE 40 MG/4 ML INJ IV SCH (06:21)
[2019-04-01] MEDS: ASPIRIN EC 81 MG TAB PO SCH (09:09)
[2019-04-01] MEDS: carvediloL 25 MG TAB PO SCH ×2 (09:09→21:33)
[2019-04-01] MEDS: LOSARTAN 50 MG TAB PO SCH (09:10)
[2019-04-01] MEDS: HEPARIN 5,000 UNIT/1 ML VIAL SUB-Q SCH ×2 (09:10→21:33)
--- NOTE | 2019-04-01 10:03 | Progress Note ---
Assessment and Plan Echo reviewed - EF 15-20%, dilated LA and LV, moderate MR, mild TR, mildly dilated RV, grade 3 diastolic dysfunction, pacing wire in right sided chambers. convert IV lasix to PO lasix. likely d/c home in AM. The patient has been seen in conjunction with Dr. Caraballo who agrees with the assessment and plan of care. - Patient Problems (1) Acute HFrEF (heart failure with reduced ejection fraction) Current Visit: Yes Status: Acute (2) NICM (nonischemic cardiomyopathy) Current Visit: Yes Status: Chronic (3) Automatic implantable cardioverter-defibrillator in situ Current Visit: Yes Status: Chronic (4) HTN (hypertension) Current Visit: Yes Status: Chronic (5) Diabetes Current Visit: Yes Status: Chronic (6) Sleep apnea Current Visit: Yes Status: Chronic (7) Pulmonary HTN Current Visit: Yes Status: Chronic Subjective Date of service: 04/01/19 Principal diagnosis: hf Interval history: pt ambulating around room, states she is feeling better today. in SR on tele with infrequent PVCs overnight. Objective Last Vital Signs Temp 98.0 F 04/01/19 04:29 Pulse 75 04/01/19 09:10 Resp 18 04/01/19 04:29 BP 125/78 04/01/19 09:10 Pulse Ox 92 04/01/19 04:29 - Physical Examination General: No Apparent Distress HEENT: Positive: PERRL, Normocephaly, Mucus Membranes Moist Neck: Positive: neck supple, trachea midline Cardiac: Positive: Reg Rate and Rhythm, S1/S2 Lungs: Positive: Decreased Breath Sounds Neuro: Positive: Grossly Intact Abdomen: Negative: Tender Skin: Negative: Rash Musculoskeletal: No Pain Extremities: Absent: edema - Labs and Meds Cardiac Enzymes 03/31/19 Range/Units 13:50 CK-MB (CK-2) 2.4 (0.0-4.0) ng/mL Comprehensive Metabolic Panel 04/01/19 Range/Units 04:30 Sodium 139 (137-145) mmol/L Potassium 3.7 (3.6-5.0) mmol/L Chloride 100.3 (98-107) mmol/L Carbon Dioxide 21 L (22-30) mmol/L BUN 12 (7-17) mg/dL Creatinine 0.8 (0.7-1.2) mg/dL Glucose 91 (65-100) mg/dL Calcium 8.7 (8.4-10.2) mg/dL - Imaging and Cardiology EKG: report reviewed, image reviewed Echo: report reviewed (12/2016 showed EF 15-20%, restrictive diastolic filling, RA mod enlarged, mild to mod MR, mod TR, mild to mod pulm HTN with RVSP 40mmHg. ) - EKG Sinus rhythms and dysrhythmias: sinus rhythm Chamber hypertrophy or enlargement: left ventricular hypertro
--- NOTE | 2019-04-01 13:56 | Progress Note ---
Assessment and Plan /CHF exacerbation -09/06/18 echocardiogram EF 15-20% -s/p Lasix 40 mg IV twice a day - cardiology consulted, will change lasix to po today and will monitor response - if stable will d/c tomorrow /Hypertension -Resume home meds after reconciliation -Monitor q shift /Obesity - lifestyle modifications /DVT Prophylaxis - Heparin -SCDs Subjective Date of service: 04/01/19 Principal diagnosis: hf Interval history: Patient seen and examined. Medical records and medication list reviewed. No acute event overnight noted by the RN. Patient denies any chest pain complaints of difficulty breathing with ambulation. Patient is tolerating diet. Discussed plan of care at bedside with patient. Objective - Exam Narrative Exam: GENERAL: well-developed morbidly obese female sitting on a chair appeared to be in mild discomfort. HEENT: Normocephalic. Atraumatic. No conjunctival congestion or icterus. Patient has moist mucous membranes. NECK: Supple. Trachea midline. CHEST/LUNGS: crackles auscultated at base bilaterally, breathing nonlabored. No wheezes HEART/CARDIOVASCULAR: Regular in rate and rhythm. S1 and S2 positive. ABDOMEN: Abdomen is soft, nontender. Patient has normal bowel sounds. SKIN: There is no rash. Warm and dry. NEURO: No focal motor deficit. Follows command. MUSCULOSKELETAL: No joint effusion or tenderness. EXTRIMITY: No edema, no cyanosis or clubbing. PSYCH: Cooperative. - Constitutional Vitals: Vital Signs - 12hr 04/01/19 04/01/19 04/01/19 04:27 04:29 09:09 Temperature 98.0 F Pulse Rate 90 72 75 Respiratory 18 Rate Blood Pressure 125/76 125/78 O2 Sat by Pulse 92 Oximetry 04/01/19 04/01/19 09:10 13:00 Temperature Pulse Rate 75 73 Respiratory Rate Blood Pressure 125/78 O2 Sat by Pulse Oximetry - Labs CBC & Chem 7: 03/30/19 19:15 04/01/19 04:30 Labs: Abnormal lab results 03/31/19 03/31/19 04/01/19 Range/Units 13:50 16:20 04:30 Carbon Dioxide 21 L (22-30) mmol/L Total Creatine Kinase 186 H (30-135) units/L Ur Specific [place] 1.041 H (1.003-1.030)
--- NOTE | 2019-04-02 09:36 | Progress Note ---
Assessment and Plan Currently stable cardiac status. pt may discharge home from cardiology standpoint on current cardiac regimen. Recommend follow up in our office with Dr. Hughes within 3-5 days ([phone]). Pt states she will call and make her own appt. The patient has been seen in conjunction with Dr. Caraballo who agrees with the assessment and plan of care. - Patient Problems (1) Acute HFrEF (heart failure with reduced ejection fraction) Current Visit: Yes Status: Acute (2) NICM (nonischemic cardiomyopathy) Current Visit: Yes Status: Chronic (3) Automatic implantable cardioverter-defibrillator in situ Current Visit: Yes Status: Chronic (4) HTN (hypertension) Current Visit: Yes Status: Chronic (5) Diabetes Current Visit: Yes Status: Chronic (6) Sleep apnea Current Visit: Yes Status: Chronic (7) Pulmonary HTN Current Visit: Yes Status: Chronic Subjective Date of service: 04/02/19 Principal diagnosis: hf Interval history: pt ambulating around room, states she is feeling better well, slept well. in SR on tele with infrequent PVCs overnight. Objective Last Vital Signs Temp 98.0 F 04/02/19 08:04 Pulse 72 04/02/19 08:04 Resp 20 04/02/19 08:04 BP 128/83 04/02/19 08:04 Pulse Ox 93 04/02/19 08:04 - Physical Examination General: No Apparent Distress HEENT: Positive: PERRL, Normocephaly, Mucus Membranes Moist Neck: Positive: neck supple, trachea midline Cardiac: Positive: Reg Rate and Rhythm, S1/S2 Lungs: Positive: Decreased Breath Sounds Neuro: Positive: Grossly Intact Abdomen: Negative: Tender Skin: Negative: Rash Musculoskeletal: No Pain Extremities: Absent: edema - Imaging and Cardiology EKG: report reviewed, image reviewed Echo: report reviewed (03/2019: EF 15-20%, dilated LA and LV, moderate MR, mild TR, mildly dilated RV, grade 3 diastolic dysfunction, pacing wire in right sided chambers. ) - Telemetry EKG Rhythm: Sinus Rhythm - EKG Sinus rhythms and dysrhythmias: sinus rhythm Chamber hypertrophy or enlargement: left ventricular hypertro
[2019-04-02] MEDS ORDERED: FUROSEMIDE 40 MG TAB PO SCH (10:00)
[2019-04-02] MEDS: LOSARTAN 50 MG TAB PO SCH (10:38)
[2019-04-02] MEDS: ASPIRIN EC 81 MG TAB PO SCH (10:38)
[2019-04-02] MEDS: HEPARIN 5,000 UNIT/1 ML VIAL SUB-Q SCH (10:39)
[2019-04-02] MEDS: carvediloL 25 MG TAB PO SCH (10:39)
[2019-04-02 12:21] VITALS: BP 117/80
--- NOTE | 2019-04-02 13:26 | Discharge Summary ---
Providers - Providers Date of Admission: 03/31/19 01:15 Date of discharge: 04/02/19 Attending physician: MELVIN LOVE 03/31/19 03:42 Consult to Physician [CONS] Routine Comment: Consulting Provider: NATHAN PHILIP Physician Instructions: Reason For Exam: chf Primary care physician: CLAIM REP Hospitalization Condition: Fair Pertinent studies: CXR CTA chest Hospital course: Discharge diagnosis and Mx: /Acute on chronic systolic CHF exacerbation -09/06/18 echocardiogram EF 15-20%, has AICD in situ -s/p Lasix 40 mg IV twice a day - cardiology consulted, will change lasix to po - discharged home with outpt f/u /Hypertension -Resume home meds after reconciliation -Monitor q shift /Obesity - lifestyle modifications /DVT Prophylaxis - Heparin -SCDs Disposition: - TO HOME OR SELFCARE Time spent for discharge: 34 minutes Core Measure Documentation - Palliative Care Palliative Care/ Comfort Measures: Not Applicable - Core Measures Any of the following diagnoses?: heart failure - Heart Failure Discharge Requirements MICHELINE/ARB for LVSD if EF <40%: Yes Beta rosales at discharge: Yes Exam - Physical Exam Narrative exam: GENERAL: well-developed morbidly obese female sitting on a chair appeared to be in mild discomfort. HEENT: Normocephalic. Atraumatic. No conjunctival congestion or icterus. Patient has moist mucous membranes. NECK: Supple. Trachea midline. CHEST/LUNGS: no crackles auscultated at base bilaterally, breathing nonlabored. No wheezes HEART/CARDIOVASCULAR: Regular in rate and rhythm. S1 and S2 positive. ABDOMEN: Abdomen is soft, nontender. Patient has normal bowel sounds. SKIN: There is no rash. Warm and dry. NEURO: No focal motor deficit. Follows command. MUSCULOSKELETAL: No joint effusion or tenderness. EXTRIMITY: No edema, no cyanosis or clubbing. PSYCH: Cooperative. - Constitutional Vitals: Temp Pulse Resp BP Pulse Ox 97.6 F 75 20 117/80 90 04/02/19 12:20 04/02/19 12:20 04/02/19 12:20 04/02/19 12:20 04/02/19 12:20 Plan Activity: advance as tolerated Weight Bearing Status: Non-Weight Bearing Diet: low fat, low salt Special Instructions: restrict fluid intake to (1.2 L per day), record daily weights Follow up with: PRIMARY CARE, [Primary Care Provider] - 3-5 Days PAZ FAM MD [Staff Physician] - 7 Days Prescriptions: Furosemide [Lasix TAB] 40 mg PO QDAY #30 tablet
== END 2019-04-02 16:45 | disposition home or self-care (01) | DRG 292 ==
LOC: ED 16:52 → 4A 03-31 01:15
PROVIDERS: ADMIT Internal Medicine; ATTEND Internal Medicine
DX: I11.0 Hypertensive heart disease with heart failure (principal); Z68.42 Body mass index [BMI] 45.0-49.9, adult; I50.23 Acute on chronic systolic (congestive) heart failure; E66.9 Obesity, unspecified; I42.8 Other cardiomyopathies; E11.9 Type 2 diabetes mellitus without complications; I27.20 Pulmonary hypertension, unspecified; G47.33 Obstructive sleep apnea (adult) (pediatric); G43.909 Migraine, unspecified, not intractable, without status migrainosus; Z90.710 Acquired absence of both cervix and uterus; Z82.49 Family history of ischemic heart disease and other diseases of the circulatory system; Z95.810 Presence of automatic (implantable) cardiac defibrillator; Z83.3 Family history of diabetes mellitus; Z79.82 Long term (current) use of aspirin; Z79.899 Other long term (current) drug therapy
CPT/HCPCS: 36415; 71046; 71275; 80048; 81001; 82550; 82553; 83880; 84484; 85025; 93005; 93010; 93306; G0378; J1644; J1940; Q9967

== ENCOUNTER 2019-09-10 19:00 | Inpatient (IN) | payer MEDICARE, OTHER ==
[2019-09-10] MEDS ORDERED: SODIUM CHLORIDE 0.9% 1000 ML 1,000 ML IV ONE (23:08)
--- NOTE | 2019-09-10 23:26 | Emergency Department Report ---
ED Abdominal Pain HPI - General Chief Complaint: Abdominal Pain Stated Complaint: X2 DAYS NO BM Time Seen by Provider: 09/10/19 23:06 Source: patient Mode of arrival: Ambulatory Limitations: No Limitations - History of Present Illness Initial Comments: Ms. Garrido is a 44-year-old -[place] female with a history of fibroids, CAD, hypertension, improving constipation. Who presents for constipation. States last bowel movement 2 days ago. She denies fever, chills no nausea vomiting. Symptoms are exacerbated by movement and palpation. Symptoms are relieved by nothing tried. Last bowel movement hard firm rabbit pellets 2 days ago. MD Complaint: abdominal pain Onset/Timin -: days(s) Location: LLQ Radiation: LLQ Migration to: LLQ Severity: moderate Severity scale (0 -10): 5 Quality: cramping, aching Consistency: constant Improves With: nothing Worsens With: movement Associated Symptoms: constipation. denies: nausea, vomiting, diarrhea, fever, chills, dysuria Treatments Prior to Arrival: NSAIDs - Related Data Home Medications Medication Instructions Recorded Confirmed Last Taken carvediloL [Coreg] 25 mg PO BID 02/28/17 03/31/19 02/27/17 Previous Rx's Medication Instructions Recorded Last Taken Type Aspirin EC [Halfprin EC] 81 mg PO QDAY #30 tablet. 09/06/16 02/27/17 08:00 Rx Losartan [Cozaar] 100 mg PO QDAY #30 tablet 09/07/16 02/27/17 Rx HYDROcodone/APAP 5-325 [[place] 1 each PO Q6H PRN #10 tablet 03/01/17 Unknown Rx 5-325 mg TAB] Furosemide [Lasix TAB] 40 mg PO QDAY #30 tablet 04/02/19 Unknown Rx Allergies Allergy/AdvReac Type Severity Reaction Status Date / Time No Known Allergies Allergy Verified 03/30/19 17:44 ED Review of Systems ROS: Stated complaint: X2 DAYS NO BM Other details as noted in HPI Constitutional: denies: chills, fever Eyes: denies: eye pain, eye discharge, vision change ENT: denies: ear pain, throat pain Respiratory: denies: cough, shortness of breath, wheezing Cardiovascular: denies: chest pain, palpitations Endocrine: no symptoms reported Gastrointestinal: abdominal pain, constipation. denies: nausea, vomiting, diarrhea, melena Genitourinary: denies: urgency, dysuria, discharge Musculoskeletal: denies: back pain, joint swelling, arthralgia Skin: denies: rash, lesions Neurological: denies: headache, weakness, paresthesias Psychiatric: denies: anxiety, depression Hematological/Lymphatic: denies: easy bleeding, easy bruising ED Past Medical Hx - Past Medical History Previous Medical History?: Yes Hx Hypertension: Yes (on medications 2 years) Hx Heart Attack/AMI: No Hx Congestive Heart Failure: Yes Hx Diabetes: No Hx Sickle Cell Disease: No Hx Headaches / Migraines: Yes (occasional migraines) Hx Asthma: No Hx COPD: No Hx HIV: No Additional medical history: anemia - Surgical History Past Surgical History?: Yes Hx Internal Defibrillator: Yes Additional Surgical History: Hysterectomy - Social History Smoking Status: Never Smoker Substance Use Type: None - Medications Home Medications: Home Medications Medication Instructions Recorded Confirmed Last Taken Type Aspirin EC [Halfprin EC] 81 mg PO QDAY #30 tablet. 09/06/16 03/31/19 02/27/17 08:00 Rx Losartan [Cozaar] 100 mg PO QDAY #30 tablet 09/07/16 03/31/19 02/27/17 Rx carvediloL [Coreg] 25 mg PO BID 02/28/17 03/31/19 02/27/17 History HYDROcodone/APAP 5-325 [[place] 1 each PO Q6H PRN #10 tablet 03/01/17 03/31/19 Unknown Rx 5-325 mg TAB] Furosemide [Lasix TAB] 40 mg PO QDAY #30 tablet 04/02/19 Unknown Rx ED Physical Exam - General Limitations: No Limitations General appearance: alert, in no apparent distress - Head Head exam: Present: atraumatic, normocephalic - Eye Eye exam: Present: normal appearance - ENT ENT exam: Present: mucous membranes moist - Neck Neck exam: Present: normal inspection, full ROM - Respiratory Respiratory exam: Present: normal lung sounds bilaterally. Absent: wheezes, stridor, chest wall tenderness - Cardiovascular Cardiovascular Exam: Present: regular rate, normal rhythm, normal heart sounds. Absent: systolic murmur, diastolic murmur, rubs, gallop - GI/Abdominal GI/Abdominal exam: Present: soft, tenderness (Bilat Lower Abd ), normal bowel sounds. Absent: distended, guarding, rebound, rigid, bruit, hernia - Rectal Rectal exam: Present: deferred - Extremities Exam Extremities exam: Present: normal inspection, full ROM. Absent: tenderness, pedal edema - Back Exam Back exam: Present: normal inspection, full ROM. Absent: tenderness, CVA tenderness (R), CVA tenderness (L) - Neurological Exam Neurological exam: Present: alert, oriented X3, CN II-XII intact, normal gait - Psychiatric Psychiatric exam: Present: normal affect, normal mood - Skin Skin exam: Present: warm, dry, intact, normal color. Absent: rash ED Course Vital Signs 09/10/19 09/11/19 19:20 01:55 Temperature 100.8 F H 99.1 F Pulse Rate 114 H 99 H Respiratory 20 18 Rate Blood Pressure 119/81 107/50 O2 Sat by Pulse 95 98 Oximetry ED Medical Decision Making - Lab Data Result diagrams: 09/10/19 23:22 09/10/19 23:22 Labs 09/10/19 09/10/19 23:22 23:22 WBC 22.2 H RBC 4.42 Hgb 12.0 Hct 37.0 MCV 84 MCH 27 L MCHC 32 RDW 14.5 Plt Count 284 Sodium 135 L Potassium 3.3 L Chloride 94.0 L Carbon Dioxide 24 Anion Gap 20 BUN 19 H Creatinine 1.2 Estimated GFR 59 BUN/Creatinine Ratio 16 Glucose 118 H Calcium 10.0 Total Bilirubin 0.60 AST 40 ALT 28 Alkaline Phosphatase 113 Total Protein 8.2 Albumin 3.5 L Albumin/Globulin Ratio 0.7 Lipase 24 - Radiology Data Radiology results: report reviewed, image reviewed Findings Reporting MD: Cheyenne Mendoza Dictation Time: September 11, 2019 02:48 [employer] Supervisor: Not available Tax Consultant Date: CT ABDOMEN AND PELVIS WITH IV CONTRAST INDICATION: Left lower quadrant abdominal pain. The patient reports a history of recent hysterectomy. TECHNIQUE: Following the administration of intravenous contrast, multiple axial CT images of the abdomen and pelvis were acquired. Sagittal and coronal reformats were obtained. All CT performed at this facility utilize dose red uction techniques including automated exposure control, iterative reconstruction and weight based dosing when appropriate to reduce patient radiation dose to as low as reasonably achievable. COMPARISON: CT of the abdomen and pelvis, 07/22/2014 FINDINGS: Limited imaging of the bilateral lung bases demonstrates faint bibasilar parenchymal densities. Abdomen: The liver, gallbladder, spleen, pancreas, bilateral adrenal glands and bilateral kidneys show no evidence of acute abnormality. The abdominal aorta is normal in caliber. The appendix is visualized and appears normal. Pelvis: There is a peripherally enhancing partially loculated fluid collection containing scattered foci of air within the left and midline pelvis. This measures approximately 12 cm in craniocaudal dimension by 7.8 cm in AP dimension. There is a moderate amount of associated inflammatory stranding and free fluid. There is moderate generalized inflammatory changes of the adjacent sigmoid colon with multiple diverticula. No extraluminal air is clearly identified. There has been interval hysterectomy. The urinary bladder appears within normal limits. Bones and Soft Tissues: Evaluation of bony structures demonstrates no evidence of acute bony abnormality. Evaluation of soft tissue structures demonstrates no evidence of acute soft tissue abnormality. IMPRESSION: 1. Thick walled enhancing partially loculated fluid collection containing air occupying the left and midline pelvis most likely representing a pelvic abscess. 2. Moderate inflammatory changes of the adjacent sigmoid colon with multiple diverticula. Although inflammatory changes could be reactive, findings may suggest acute diverticulitis. Signer Name: Cheyenne Mendoza MD Signed: 09/11/2019 2:48 AM Workstation Name: [employer] Findings Reporting MD: Cheyenne Mendoza Dictation Time: September 10, 2019 22:25 [employer] Gr[employer] Supervisor: Not available Tax Consultant Date: ABDOMEN 1 VIEW INDICATION / CLINICAL INFORMATION: Abdominal pain and constipation COMPARISON: No relevant prior studies are available for comparison FINDINGS: TUBES / LINES: None. BOWEL GAS PATTERN: The bowel gas pattern appears nonobstructive. ADDITIONAL FINDINGS: Evaluation of bony structures demonstrates no definitive evidence of acute bony abnormality. IMPRESSION: 1. No radiographic evidence of acute intra-abdominal process. Signer Name: Cheyenne Mendoza MD Signed: 09/10/2019 10:25 PM Workstation Name: [id number] - Medical Decision Making KUB was normal. However patient had white count 22,000 CT abdomen and pelvis suggestive of diverticulitis versus pelvic abscess lactic acid is 1.2 patient treated with Zosyn offered admission, pt agrees with same. Consulted hosptalist, Recommendation : admit dx: Diverticulitis , levaquin, flagyl, NPO, discussed tx plan with pt, pt verbalized agreement and understanding with treatment plan. Critical care attestation.: If time is entered above; I have spent that time in minutes in the direct care of this critically ill patient, excluding procedure time. ED Disposition Clinical Impression: Diverticulitis large intestine Qualifiers: Diverticulitis bleeding: without bleeding Diverticulitis complication: unspecified complication status Qualified Code(s): K57.32 - Diverticulitis of large intestine without perforation or abscess without bleeding Disposition: DC-09 OP ADMIT IP TO THIS HOSP Is pt being admited?: Yes Does the pt Need Aspirin: No Condition: Stable Instructions: Diverticulitis (ED)
--- NOTE | 2019-09-10 23:30 | XRay Report ---
ABDOMEN 1 VIEW INDICATION / CLINICAL INFORMATION: Abdominal pain and constipation COMPARISON: No relevant prior studies are available for comparison FINDINGS: TUBES / LINES: None. BOWEL GAS PATTERN: The bowel gas pattern appears nonobstructive. ADDITIONAL FINDINGS: Evaluation of bony structures demonstrates no definitive evidence of acute bony abnormality. IMPRESSION: 1. No radiographic evidence of acute intra-abdominal process. Signer Name: Cheyenne Mendoza MD Signed: 09/10/2019 11:25 PM Workstation Name: [email or web address]
[2019-09-10 23:40] LABS: Mean Corpuscular HGB Conc 32 % (30-34); Mean Corpuscular Volume 84 fl (79-97); Platelet Count 284 K/mm3 (140-440); Red Blood Count 4.42 M/mm3 (3.65-5.03); Red Cell Distribution Width 14.5 % (13.2-15.2)
[2019-09-11 00:07] LABS: Albumin 3.5 g/dL (3.9-5)
[2019-09-11] MEDS ORDERED: SODIUM CHLORIDE 0.9% 1000 ML 1,000 ML IV ONE ×2 (00:44→04:13)
[2019-09-11 02:22] LABS: Bilirubin,Urine NEG (Negative); Blood,Urine MOD (Negative); Color,Urine Yellow (Yellow); Mucus,Urine 1+ /HPF
[2019-09-11 02:24] LABS: HCG Qualitative,Urine Negative (Negative)
[2019-09-11 03:06] LABS: Anisocytosis Few; Basophils % (Manual) 0 % (0.0-1.8); Eosinophils % (Manual) 0 % (0.0-4.3); Total Cells Counted 100
[2019-09-11 03:07] LABS: Ovalocytes Few; Platelet Estimate Consistent w Auto
--- NOTE | 2019-09-11 03:52 | Cat Scan Report ---
CT ABDOMEN AND PELVIS WITH IV CONTRAST INDICATION: Left lower quadrant abdominal pain. The patient reports a history of recent hysterectomy. TECHNIQUE: Following the administration of intravenous contrast, multiple axial CT images of the abdo men and pelvis were acquired. Sagittal and coronal reformats were obtained. All CT performed at this facility utilize dose reduction techniques including automated exposure control, iterative reconstru ction and weight based dosing when appropriate to reduce patient radiation dose to as low as reasonab ly achievable. COMPARISON: CT of the abdomen and pelvis, 07/22/2014 FINDINGS: Limited imaging of the bilateral lung bases demonstrates faint bibasilar parenchymal densities. Abdomen: The liver, gallbladder, spleen, pancreas, bilateral adrenal glands and bilateral kidneys donald w no evidence of acute abnormality. The abdominal aorta is normal in caliber. The appendix is visuali zed and appears normal. Pelvis: There is a peripherally enhancing partially loculated fluid collection containing scattered f oci of air within the left and midline pelvis. This measures approximately 12 cm in craniocaudal dime nsion by 7.8 cm in AP dimension. There is a moderate amount of associated inflammatory stranding and free fluid. There is moderate generalized inflammatory changes of the adjacent sigmoid colon with mul tiple diverticula. No extraluminal air is clearly identified. There has been interval hysterectomy. T he urinary bladder appears within normal limits. Bones and Soft Tissues: Evaluation of bony structures demonstrates no evidence of acute bony abnormal ity. Evaluation of soft tissue structures demonstrates no evidence of acute soft tissue abnormality. IMPRESSION: 1. Thick walled enhancing partially loculated fluid collection containing air occupying the left and midline pelvis most likely representing a pelvic abscess. 2. Moderate inflammatory changes of the adjacent sigmoid colon with multiple diverticula. Although in flammatory changes could be reactive, findings may suggest acute diverticulitis. Signer Name: Cheyenne Mendoza MD Signed: 09/11/2019 3:48 AM Workstation Name: [email or web address]
[2019-09-11] MEDS ORDERED: PIPERACIL/TAZOBACTA 4.5/NS 100 4.5 GM/100 ML VIAL IV ONE (04:11)
[2019-09-11] MEDS ORDERED: MORPHINE 4 MG/1 ML INJ IV ONE (04:14)
[2019-09-11] MEDS ORDERED: ONDANSETRON 4 MG/2 ML INJ IV ONE (04:14)
[2019-09-11] MEDS ORDERED: metroNIDAZOLE/NS 500 MG/100 ML 500 MG/100 ML BAG IV ONE (04:36)
[2019-09-11] MEDS ORDERED: ONDANSETRON 4 MG/2 ML INJ IV PRN (04:52)
[2019-09-11] MEDS ORDERED: ACETAMINOPHEN 325 MG TAB PO PRN (04:52)
--- NOTE | 2019-09-11 05:03 | History and Physical Report ---
History of Present Illness Date of examination: 09/11/19 Date of admission: 09/11/2019 Chief complaint: Abdominal pain History of present illness: 44-year-old -[place] female with known history of coronary artery disease, hypertension, CHF and obesity presenting to the emergency room today complaining of constipation and abdominal pain. Patient indicates that she has not had a bowel movement in 2 to 3 days. She passed a few pellets of hard stool yesterday and still feels constipated. She took some Dulcolax without any improvement. She has since been having abdominal pain which was initially generalized but now more in the lower abdomen. She denies any fever or chills, she has some nausea but no vomiting and no diarrhea, no hematuria or dysuria, no bright red blood per rectum, denies any chest pain or shortness of breath, no headache or dizziness. Patient denies any sick contacts and no recent travel. She has had total abdominal hysterectomy in the past. Work-up in the emergency room reveals significant leukocytosis on the labs, CT of the abdomen and pelvis suspicious for pelvic abscess versus diverticulitis. Past History Past Medical History: CAD, hypertension Past Surgical History: hysterectomy Social history: no significant social history Family history: no significant family history Medications and Allergies Allergies Allergy/AdvReac Type Severity Reaction Status Date / Time No Known Allergies Allergy Verified 03/30/19 17:44 Home Medications Medication Instructions Recorded Confirmed Last Taken Type Aspirin EC [Halfprin EC] 81 mg PO QDAY #30 tablet. 09/06/16 03/31/19 02/27/17 08:00 Rx Losartan [Cozaar] 100 mg PO QDAY #30 tablet 09/07/16 03/31/19 02/27/17 Rx carvediloL [Coreg] 25 mg PO BID 02/28/17 03/31/19 02/27/17 History HYDROcodone/APAP 5-325 [[place] 1 each PO Q6H PRN #10 tablet 03/01/17 03/31/19 Unknown Rx 5-325 mg TAB] Furosemide [Lasix TAB] 40 mg PO QDAY #30 tablet 04/02/19 Unknown Rx Active Meds: Active Medications Acetaminophen (Tylenol) 650 mg PO Q4H PRN PRN Reason: Pain MILD(1-3)/Fever >100.5/BAILEY Sodium Chloride (Nacl 0.9% 1000 Ml) 1,000 mls @ 125 mls/hr IV ONCE ONE Stop: 09/11/19 12:12 Last Admin: 09/11/19 04:41 Dose: 125 mls/hr Documented by: Levofloxacin/Dextrose (Levaquin 750mg/150ml) 750 mg in 150 mls @ 100 mls/hr IV ONCE ONE; Protocol Stop: 09/11/19 06:05 Metronidazole (Flagyl 500 Mg/100 Ml) 500 mg in 100 mls @ 200 mls/hr IV ONCE ONE ; Protocol Stop: 09/11/19 05:05 Last Admin: 09/11/19 04:44 Dose: 200 mls/hr Documented by: Levofloxacin/Dextrose (Levaquin 750mg/150ml) 750 mg in 150 mls @ 100 mls/hr IV Q24H JACE; Protocol Metronidazole (Flagyl 500 Mg/100 Ml) 500 mg in 100 mls @ 100 mls/hr IV Q8HR JACE; Protocol Sodium Chloride (Nacl 0.9% 1000 Ml) 1,000 mls @ 125 mls/hr IV DIRECT JACE Morphine Sulfate (Morphine) 2 mg IV Q4H PRN PRN Reason: Pain, Moderate (4-6) Ondansetron HCl (Zofran) 4 mg IV Q8H PRN PRN Reason: Nausea And Vomiting Sodium Chloride (Sodium Chloride Flush Syringe 10 Ml) 10 ml IV BID JACE Sodium Chloride (Sodium Chloride Flush Syringe 10 Ml) 10 ml IV PRN PRN PRN Reason: LINE FLUSH Review of Systems Constitutional: no fever, no chills Cardiovascular: no chest pain, no palpitations, no syncope Respiratory: no cough, no shortness of breath Gastrointestinal: nausea, no vomiting, no diarrhea Genitourinary Female: no flank pain, no dysuria, no hematuria Musculoskeletal: no neck pain, no low back pain Integumentary: no rash, no pruritis Neurological: no headaches, no confusion Psychiatric: no anxiety, no depression Exam - Constitutional Vitals: Temp Pulse Resp BP Pulse Ox 99.1 F 99 H 18 107/50 98 09/11/19 01:55 09/11/19 01:55 09/11/19 01:55 09/11/19 01:55 09/11/19 01:55 General appearance: Present: no acute distress, well-nourished, obese - EENT Eyes: Present: PERRL, EOM intact ENT: hearing intact, clear oral mucosa, dentition normal - Neck Neck: Present: supple, normal ROM - Respiratory Respiratory effort: normal Respiratory: bilateral: CTA - Cardiovascular Rhythm: regular Heart Sounds: Present: S1 & S2 - Extremities Extremities: no ischemia, pulses intact, pulses symmetrical, No edema, Full ROM Peripheral Pulses: within normal limits - Abdominal General gastrointestinal: Present: soft, tender (left lower quadrant), normal bowel sounds - Integumentary Integumentary: Present: clear, warm, dry - Musculoskeletal Musculoskeletal: strength equal bilaterally - Psychiatric Psychiatric: appropriate mood/affect, intact judgment & insight, cooperative - Neurologic Neurologic: CNII-XII intact, moves all extremities Results - Labs CBC & Chem 7: 09/10/19 23:22 09/10/19 23:22 Labs: Abnormal lab results 09/10/19 09/10/19 09/11/19 Range/Units 23:22 23:22 Unknown WBC 22.2 H (4.5-11.0) K/mm3 MCH 27 L (28-32) pg Seg Neuts % (Manual) 87.0 H (40.0-70.0) % Lymphocytes % (Manual) 8.0 L (13.4-35.0) % Seg Neutrophils # Man 19.3 H (1.8-7.7) K/mm3 Monocytes # (Manual) 1.1 H (0.0-0.8) K/mm3 Sodium 135 L (137-145) mmol/L Potassium 3.3 L (3.6-5.0) mmol/L Chloride 94.0 L (98-107) mmol/L BUN 19 H (7-17) mg/dL Glucose 118 H (65-100) mg/dL Albumin 3.5 L (3.9-5) g/dL Urine WBC (Auto) 20.0 H (0.0-6.0) /HPF Assessment and Plan - Patient Problems (1) Diverticulitis large intestine Current Visit: Yes Status: Acute Qualifiers: Diverticulitis bleeding: without bleeding Diverticulitis complication: unspecified complication status Qualified Code(s): K57.32 - Diverticulitis of large intestine without perforation or abscess without bleeding Plan to address problem: Patient has been placed on empiric IV antibiotics. We also placed on analgesic medication. Will make n.p.o. meanwhile and request gastroenterology evaluation and recommendation. (2) HTN (hypertension) Current Visit: No Status: Chronic Plan to address problem: Blood pressure stable. We will resume routine home medication monitor vital signs closely. (3) Obesity, morbid, BMI 40.0-49.9 Current Visit: No Status: Acute Plan to address problem: Patient has a BMI of 42.2 Request dietary consult prior to discharge. (4) DVT prophylaxis Current Visit: No Status: Acute Plan to address problem: Patient placed on subcutaneous heparin. (5) Full code status Current Visit: Yes Status: Acute
[2019-09-11] MEDS ORDERED: DEXTROSE 50% IN WATER (25GM) 50 ML SYRINGE IV PRN (05:08)
[2019-09-11] MEDS ORDERED: INSULIN LISPRO 100 UNIT/ML SUB-Q SCH (07:30)
[2019-09-11] MEDS: MORPHINE 2 MG/1 ML INJ IV PRN (08:00)
--- NOTE | 2019-09-11 11:52 | Event Note ---
Date: 09/11/19 ct A/P Abdominal abscess Surgery consulted
[2019-09-11] MEDS: SODIUM CHLORIDE 0.9% 1000 ML 1,000 ML IV SCH (12:45)
[2019-09-11] MEDS: metroNIDAZOLE/NS 500 MG/100 ML 500 MG/100 ML BAG IV SCH ×2 (13:45→22:30)
--- NOTE | 2019-09-11 14:11 | Consultation ---
History of Present Illness Consult date: 09/11/19 Reason for consult: abdominal pain Requesting physician: KATHY ABDUL Chief complaint: lower abdominal pain - History of present illness History of present illness: 44yo F with h/o CHF presents with 3 day history of lower abdominal pain that was thought to be constipation. Denies F/C/N/V. No blood in the bowel movements. ED eval revealed diverticulitis with a pelvic abscess. General surgery was consulted. Pt reports that pain is about the same as when she was in the ED. She has never been diagnosed with diverticular disease in the past. Past History Past Medical History: CAD, hypertension Past Surgical History: hysterectomy (laparoscopic) Social history: no significant social history. denies: smoking, alcohol abuse Family history: no significant family history Medications and Allergies Allergies Allergy/AdvReac Type Severity Reaction Status Date / Time No Known Allergies Allergy Verified 03/30/19 17:44 Home Medications Medication Instructions Recorded Confirmed Last Taken Type Aspirin EC [Halfprin EC] 81 mg PO QDAY #30 tablet. 09/06/16 03/31/19 02/27/17 08:00 Rx Losartan [Cozaar] 100 mg PO QDAY #30 tablet 09/07/16 03/31/19 02/27/17 Rx carvediloL [Coreg] 25 mg PO BID 02/28/17 03/31/19 02/27/17 History HYDROcodone/APAP 5-325 [[place] 1 each PO Q6H PRN #10 tablet 03/01/17 03/31/19 Unknown Rx 5-325 mg TAB] Furosemide [Lasix TAB] 40 mg PO QDAY #30 tablet 04/02/19 Unknown Rx Active Meds: Active Medications Acetaminophen (Tylenol) 650 mg PO Q4H PRN PRN Reason: Pain MILD(1-3)/Fever >100.5/BAILEY Levofloxacin/Dextrose (Levaquin 750mg/150ml) 750 mg in 150 mls @ 100 mls/hr IV Q24H JACE; Protocol Metronidazole (Flagyl 500 Mg/100 Ml) 500 mg in 100 mls @ 100 mls/hr IV Q8HR JACE; Protocol Last Admin: 09/11/19 13:45 Dose: 100 mls/hr Documented by: Sodium Chloride (Nacl 0.9% 1000 Ml) 1,000 mls @ 75 mls/hr IV DIRECT JACE Last Admin: 09/11/19 12:45 Dose: 75 mls/hr Documented by: Morphine Sulfate (Morphine) 2 mg IV Q4H PRN PRN Reason: Pain, Moderate (4-6) Last Admin: 09/11/19 08:00 Dose: 2 mg Documented by: Ondansetron HCl (Zofran) 4 mg IV Q8H PRN PRN Reason: Nausea And Vomiting Sodium Chloride (Sodium Chloride Flush Syringe 10 Ml) 10 ml IV BID [facility] Sodium Chloride (Sodium Chloride Flush Syringe 10 Ml) 10 ml IV PRN PRN PRN Reason: LINE FLUSH Review of Systems - Constitutional no fever, no chills, no chronic pain - Cardiovascular no chest pain, no shortness of breath - Respiratory no cough - Gastrointestinal abdominal pain, constipation, change in bowel habits, dyspepsia/bloating, no nausea, no vomiting, no BRBPR, no melena, no hematochezia - Integumentary no rash, no sores, no wounds Exam Vital Signs Temp Pulse Resp BP Pulse Ox 100.8 F H 114 H 20 119/81 95 09/10/19 19:20 09/10/19 19:20 09/10/19 19:20 09/10/19 19:20 09/10/19 19:20 - General physical appearance Positive: well developed, well nourished, no distress, no pain, obese, other (pleasant. Looks well. ) - Eyes Positive: normal occular movement - Respiratory Positive: normal expansion, other (slightly increased effort) - Cardiovascular Rhythm: regular - Abdomen Abdomen: Present: soft, tender (primarily in suprapubic area. minimal in upper abdomen), bowel sounds hypoactive, distended, surgical scars (well healed). Absent: guarding, rigid, wound - Integumentary no rash, no growths, no abnormal pigmentation - Neurologic Neurologic: alert and oriented to time, place and person, motor strength and sensation are grossly intact - Psychiatric Psychiatric: appropriate mood/affect, intact judgment & insight, cooperative Results - Labs 09/10/19 23:22 09/10/19 23:22 Abnormal lab results 09/10/19 09/10/19 09/11/19 Range/Units 23:22 23:22 Unknown WBC 22.2 H (4.5-11.0) K/mm3 MCH 27 L (28-32) pg Seg Neuts % (Manual) 87.0 H (40.0-70.0) % Lymphocytes % (Manual) 8.0 L (13.4-35.0) % Seg Neutrophils # Man 19.3 H (1.8-7.7) K/mm3 Monocytes # (Manual) 1.1 H (0.0-0.8) K/mm3 Sodium 135 L (137-145) mmol/L Potassium 3.3 L (3.6-5.0) mmol/L Chloride 94.0 L (98-107) mmol/L BUN 19 H (7-17) mg/dL Glucose 118 H (65-100) mg/dL Albumin 3.5 L (3.9-5) g/dL Urine WBC (Auto) 20.0 H (0.0-6.0) /HPF Diabetes panel 09/10/19 Range/Units 23:22 Sodium 135 L (137-145) mmol/L Potassium 3.3 L (3.6-5.0) mmol/L Chloride 94.0 L (98-107) mmol/L Carbon Dioxide 24 (22-30) mmol/L BUN 19 H (7-17) mg/dL Creatinine 1.2 (0.7-1.2) mg/dL Glucose 118 H (65-100) mg/dL Calcium 10.0 (8.4-10.2) mg/dL AST 40 (5-40) units/L ALT 28 (7-56) units/L Alkaline Phosphatase 113 (35-129) units/L Total Protein 8.2 (6.3-8.2) g/dL Albumin 3.5 L (3.9-5) g/dL Calcium panel 09/10/19 Range/Units 23:22 Calcium 10.0 (8.4-10.2) mg/dL Albumin 3.5 L (3.9-5) g/dL Pituitary panel 09/10/19 Range/Units 23:22 Sodium 135 L (137-145) mmol/L Potassium 3.3 L (3.6-5.0) mmol/L Chloride 94.0 L (98-107) mmol/L Carbon Dioxide 24 (22-30) mmol/L BUN 19 H (7-17) mg/dL Creatinine 1.2 (0.7-1.2) mg/dL Glucose 118 H (65-100) mg/dL Calcium 10.0 (8.4-10.2) mg/dL Adrenal panel 09/10/19 Range/Units 23:22 Sodium 135 L (137-145) mmol/L Potassium 3.3 L (3.6-5.0) mmol/L Chloride 94.0 L (98-107) mmol/L Carbon Dioxide 24 (22-30) mmol/L BUN 19 H (7-17) mg/dL Creatinine 1.2 (0.7-1.2) mg/dL Glucose 118 H (65-100) mg/dL Calcium 10.0 (8.4-10.2) mg/dL Total Bilirubin 0.60 (0.1-1.2) mg/dL AST 40 (5-40) units/L ALT 28 (7-56) units/L Alkaline Phosphatase 113 (35-129) units/L Total Protein 8.2 (6.3-8.2) g/dL Albumin 3.5 L (3.9-5) g/dL - Imaging CT scan - abdomen: report reviewed, image reviewed CT scan - pelvis: report reviewed, image reviewed Assessment and Plan - Patient Problems (1) Diverticular disease of intestine with perforation and abscess Current Visit: Yes Status: Acute Plan to address problem: Pt relatively stable. BP is mildly low. Discussed with Dr. Abdul. Pt does not show clinical signs of shock. Pt does not have an acute abdomen. I think we have an opportunity to have IR place a drain to address the abscess. Thereafter, she will need a c-scope as an out-pt and then eventually a partial colectomy. This was explained to the patient. She understands. Call and consult has been placed to IR. Will follow along. Please call with questions. time=40min
[2019-09-11] MEDS ORDERED: MIDAZOLAM 5 MG/5 ML INJ MDV IV ONE ×2 (15:18→15:48)
[2019-09-11] MEDS ORDERED: fentaNYL 100 MCG/2 ML INJ IV ONE (15:18)
[2019-09-11] MEDS ORDERED: fentaNYL 100 MCG/2 ML INJ ONE (15:48)
--- NOTE | 2019-09-11 17:37 | Consultation ---
History of Present Illness - Reason for Consult Consult date: 09/11/19 Pelvic fluid collection - History of Present Illness Patient with a history abdominal pain and constipation presents to the ER. Her CT scan demonstrates a pelvic fluid collection with associated air fluid level suggestive of diverticular abscess. Pt with a history of hysterectomy in 2017. Past History Past Medical History: CAD, hypertension Past Surgical History: hysterectomy (laparoscopic) Social history: no significant social history. denies: smoking, alcohol abuse Family history: no significant family history Medications and Allergies Allergies Allergy/AdvReac Type Severity Reaction Status Date / Time No Known Allergies Allergy Verified 03/30/19 17:44 Home Medications Medication Instructions Recorded Confirmed Last Taken Type Aspirin EC [Halfprin EC] 81 mg PO QDAY #30 tablet. 09/06/16 03/31/19 02/27/17 08:00 Rx Losartan [Cozaar] 100 mg PO QDAY #30 tablet 09/07/16 03/31/19 02/27/17 Rx carvediloL [Coreg] 25 mg PO BID 02/28/17 03/31/19 02/27/17 History HYDROcodone/APAP 5-325 [[place] 1 each PO Q6H PRN #10 tablet 03/01/17 03/31/19 Unknown Rx 5-325 mg TAB] Furosemide [Lasix TAB] 40 mg PO QDAY #30 tablet 04/02/19 Unknown Rx Active Meds: Active Medications Acetaminophen (Tylenol) 650 mg PO Q4H PRN PRN Reason: Pain MILD(1-3)/Fever >100.5/BAILEY Levofloxacin/Dextrose (Levaquin 750mg/150ml) 750 mg in 150 mls @ 100 mls/hr IV Q24H JACE; Protocol Metronidazole (Flagyl 500 Mg/100 Ml) 500 mg in 100 mls @ 100 mls/hr IV Q8HR JACE; Protocol Last Admin: 09/11/19 13:45 Dose: 100 mls/hr Documented by: Sodium Chloride (Nacl 0.9% 1000 Ml) 1,000 mls @ 75 mls/hr IV DIRECT JACE Last Admin: 09/11/19 12:45 Dose: 75 mls/hr Documented by: Morphine Sulfate (Morphine) 2 mg IV Q4H PRN PRN Reason: Pain, Moderate (4-6) Last Admin: 09/11/19 08:00 Dose: 2 mg Documented by: Ondansetron HCl (Zofran) 4 mg IV Q8H PRN PRN Reason: Nausea And Vomiting Sodium Chloride (Sodium Chloride Flush Syringe 10 Ml) 10 ml IV BID JACE Sodium Chloride (Sodium Chloride Flush Syringe 10 Ml) 10 ml IV PRN PRN PRN Reason: LINE FLUSH Review of Systems All systems: negative Exam - Constitutional Vitals: Temp Pulse Resp BP Pulse Ox 98.8 F 101 H 20 97/65 100 09/11/19 11:35 09/11/19 17:24 09/11/19 17:24 09/11/19 17:24 09/11/19 17:24 General appearance: Present: no acute distress - EENT Eyes: Present: EOM intact ENT: hearing intact - Neck Neck: Present: supple - Respiratory Respiratory effort: normal - Extremities Extremities: no ischemia - Abdominal General gastrointestinal: Present: soft Female genitourinary: Present: deferred - Rectal Rectal Exam: deferred - Psychiatric Psychiatric: appropriate mood/affect, cooperative - Neurologic Neurologic: no focal deficits Results - Labs CBC & Chem 7: 09/10/19 23:22 09/10/19 23:22 Labs: Abnormal lab results 09/10/19 09/10/19 09/11/19 Range/Units 23:22 23:22 Unknown WBC 22.2 H (4.5-11.0) K/mm3 MCH 27 L (28-32) pg Seg Neuts % (Manual) 87.0 H (40.0-70.0) % Lymphocytes % (Manual) 8.0 L (13.4-35.0) % Seg Neutrophils # Man 19.3 H (1.8-7.7) K/mm3 Monocytes # (Manual) 1.1 H (0.0-0.8) K/mm3 Sodium 135 L (137-145) mmol/L Potassium 3.3 L (3.6-5.0) mmol/L Chloride 94.0 L (98-107) mmol/L BUN 19 H (7-17) mg/dL Glucose 118 H (65-100) mg/dL Albumin 3.5 L (3.9-5) g/dL Urine WBC (Auto) 20.0 H (0.0-6.0) /HPF - Imaging and Cardiology CT scan - abdomen: report reviewed, image reviewed Assessment and Plan Patient will be brought to CT scan for placement of drainage tube in pelvic fluid collection.
--- NOTE | 2019-09-11 17:52 | Event Note ---
Date: 09/11/19 Patient was brought to the CT scan for planned placement of a drainage catheter for presumed diverticular abscess. The patient was placed on the CT scanner and prepped and draped in the usual sterile fashion. The fluid collection which appears to be in the cul-de-sac was then entered using a 15 cm 18-gauge trocar needle. This fluid collection appears to be septated. The fluid itself is thin yellow and serous. It is not associated with the bladder as the bladder is well distended with contrast. A second access site was then chosen in the left lower quadrant to target the thick-walled fluid and air-filled mass. The mass was entered using a 15 cm 18-gauge trocar needle. The gas decompressed, no purulent fluid was identified. Only scant sanguinous drainage could be aspirated. Samples from both locations were sent for laboratory analysis.
--- NOTE | 2019-09-11 18:26 | Gastroenterology Consultation ---
History of Present Illness - Reason for Consult Consult date: 09/11/19 Abdominal Pain Requesting physician: KATHY JEWELL - History of Present Illness The patient is a 44 yo female who came to the ER with complaints of constipation x 3 days, [id number], with need for laxative use. There was no rectal bleeding, and no severe N/V. She had a fever on presentation to the hospital, as well as an elevated WBC. Imaging of the abdomen showed a pelvic fluids collection felt to be an abscess. However, aspiration of this showed only serosanguinous material. The CT showed some inflammation of the sigmoid colon with diverticulosis, but there was no jose ramon diverticulitis, and she has no hx of this. She had a CALVIN in 2017, but we have no intervening imaging at [facility]. She has not had a colonoscopy, and there is no family hx of IBD or colon cancer. Past History Past Medical History: CAD, heart failure (AICD), hypertension Past Surgical History: hysterectomy (laparoscopic), Other (AICD placement) Social history: no significant social history. denies: smoking, alcohol abuse Family history: no significant family history Medications and Allergies Allergies Allergy/AdvReac Type Severity Reaction Status Date / Time No Known Allergies Allergy Verified 03/30/19 17:44 Home Medications Medication Instructions Recorded Confirmed Last Taken Type Aspirin EC [Halfprin EC] 81 mg PO QDAY #30 tablet. 09/06/16 03/31/19 02/27/17 08:00 Rx Losartan [Cozaar] 100 mg PO QDAY #30 tablet 09/07/16 03/31/19 02/27/17 Rx carvediloL [Coreg] 25 mg PO BID 02/28/17 03/31/19 02/27/17 History HYDROcodone/APAP 5-325 [[place] 1 each PO Q6H PRN #10 tablet 03/01/17 03/31/19 Unk nown Rx 5-325 mg TAB] Furosemide [Lasix TAB] 40 mg PO QDAY #30 tablet 04/02/19 Unknown Rx Active Meds: Active Medications Acetaminophen (Tylenol) 650 mg PO Q4H PRN PRN Reason: Pain MILD(1-3)/Fever >100.5/BAILEY Levofloxacin/Dextrose (Levaquin 750mg/150ml) 750 mg in 150 mls @ 100 mls/hr IV Q24H JACE; Protocol Metronidazole (Flagyl 500 Mg/100 Ml) 500 mg in 100 mls @ 100 mls/hr IV Q8HR JACE; Protocol Last Admin: 09/11/19 13:45 Dose: 100 mls/hr Documented by: Sodium Chloride (Nacl 0.9% 1000 Ml) 1,000 mls @ 75 mls/hr IV DIRECT JACE Last Admin: 09/11/19 12:45 Dose: 75 mls/hr Documented by: Morphine Sulfate (Morphine) 2 mg IV Q4H PRN PRN Reason: Pain, Moderate (4-6) Last Admin: 09/11/19 08:00 Dose: 2 mg Documented by: Ondansetron HCl (Zofran) 4 mg IV Q8H PRN PRN Reason: Nausea And Vomiting Sodium Chloride (Sodium Chloride Flush Syringe 10 Ml) 10 ml IV BID JACE Sodium Chloride (Sodium Chloride Flush Syringe 10 Ml) 10 ml IV PRN PRN PRN Reason: LINE FLUSH I HAVE REVIEWED/RECONCILED MEDICATIONS Review of Systems - Review of Systems All systems: negative (as noted in the HPI.) Exam - Constitutional Vital Signs: Temp Pulse Resp BP Pulse Ox 98.8 F 99 H 20 110/50 100 09/11/19 11:35 09/11/19 17:34 09/11/19 17:34 09/11/19 17:34 09/11/19 17:34 General appearance: no acute distress - EENT Eyes: PERRL, EOM intact ENT: hearing intact, clear oral mucosa, no thrush - Neck Neck: supple, normal ROM - Respiratory Respiratory effort: normal Respiratory: bilateral: CTA - Cardiovascular Rhythm: regular Heart Sounds: Present: S1 & S2 Extremities: no ischemia, No edema - Gastrointestinal General gastrointestinal: Present: soft, tender (Tender in LLQ (seen after att empted aspiration of fluid)), non-distended - Integumentary Integumentary: Present: clear, warm, dry - Neurologic Neurological: alert and oriented x3 - Labs CBC & Chem 7: 09/10/19 23:22 09/10/19 23:22 Lab Results: Laboratory Results - last 24 hr 09/10/19 09/10/19 09/11/19 23:22 23:22 01:08 WBC 22.2 H RBC 4.42 Hgb 12.0 Hct 37.0 MCV 84 MCH 27 L MCHC 32 RDW 14.5 Plt Count 284 Add Manual Diff Complete Total Counted 100 Seg Neuts % (Manual) 87.0 H Band Neutrophils % 0 Lymphocytes % (Manual) 8.0 L Reactive Lymphs % (Man) 0 Monocytes % (Manual) 5.0 Eosinophils % (Manual) 0 Basophils % (Manual) 0 Metamyelocytes % 0 Myelocytes % 0 Promyelocytes % 0 Blast Cells % 0 Nucleated RBC % Not Reportable Seg Neutrophils # Man 19.3 H Band Neutrophils # 0.0 Lymphocytes # (Manual) 1.8 Abs React Lymphs (Man) 0.0 Monocytes # (Manual) 1.1 H Eosinophils # (Manual) 0.0 Basophils # (Manual) 0.0 Metamyelocytes # 0.0 Myelocytes # 0.0 Promyelocytes # 0.0 Blast Cells # 0.0 WBC Morphology Not Reportable Hypersegmented Neuts Not Reportable Hyposegmented Neuts Not Reportable Hypogranular Neuts Not Reportable Smudge Cells Not Reportable Toxic Granulation Not Reportable Toxic Vacuolation Not Reportable Dohle Bodies Not Reportable Pelger-Huet Anomaly Not Reportable Kristine Rods Not Reportable Platelet Estimate Consistent w auto Clumped Platelets Not Reportable Plt Clumps, EDTA Not Reportable Large Platelets Not Reportable Giant Platelets Not Reportable Platelet Satelliting Not Reportable Plt Morphology Comment Not Reportable RBC Morphology Not Reportable Dimorphic RBCs Not Reportable Polychromasia Not Reportable Hypochromasia Not Reportable Poikilocytosis Not Reportable Anisocytosis Few Microcytosis Not Reportable Macrocytosis Not Reportable Spherocytes Not Reportable Pappenheimer Bodies Not Reportable Sickle Cells Not Reportable Target Cells Not Reportable Tear Drop Cells Not Reportable Ovalocytes Few Helmet Cells Not Reportable Rodas-Ammon Bodies Not Reportable [place] Rings Not Reportable [place] Cells Not Reportable Bite Cells Not Reportable Crenated Cell Not Reportable Elliptocytes Not Reportable Acanthocytes (Spur) Not Reportable Rouleaux Not Reportable Hemoglobin C Crystals Not Reportable Schistocytes Not Reportable Malaria parasites Not Reportable Luis Bodies Not Reportable Hem Pathologist Commnt No Sodium 135 L Potassium 3.3 L Chloride 94.0 L Carbon Dioxide 24 Anion Gap 20 BUN 19 H Creatinine 1.2 Estimated GFR 59 BUN/Creatinine Ratio 16 Glucose 118 H Lactic Acid 1.20 Calcium 10.0 Total Bilirubin 0.60 AST 40 ALT 28 Alkaline Phosphatase 113 Total Protein 8.2 Albumin 3.5 L Albumin/Globulin Ratio 0.7 Lipase 24 Urine Color Urine Turbidity Urine pH Ur Specific [place] Urine Protein Urine Glucose (UA) Urine Ketones Urine Blood Urine Nitrite Urine Bilirubin Urine Urobilinogen Ur Leukocyte Esterase Urine WBC (Auto) Urine RBC (Auto) U Epithel Cells (Auto) Urine Mucus Urine Yeast (Budding) Urine HCG, Qual 09/11/19 Unknown WBC RBC Hgb Hct MCV MCH MCHC RDW Plt Count Add Manual Diff Total Counted Seg Neuts % (Manual) Band Neutrophils % Lymphocytes % (Manual) Reactive Lymphs % (Man) Monocytes % (Manual) Eosinophils % (Manual) Basophils % (Manual) Metamyelocytes % Myelocytes % Promyelocytes % Blast Cells % Nucleated RBC % Seg Neutrophils # Man Band Neutrophils # Lymphocytes # (Manual) Abs React Lymphs (Man) Monocytes # (Manual) Eosinophils # (Manual) Basophils # (Manual) Metamyelocytes # Myelocytes # Promyelocytes # Blast Cells # WBC Morphology Hypersegmented Neuts Hyposegmented Neuts Hypogranular Neuts Smudge Cells Toxic Granulation Toxic Vacuolation Dohle Bodies Pelger-Huet Anomaly Kristine Rods Platelet Estimate Clumped Platelets Plt Clumps, EDTA Large Platelets Giant Platelets Platelet Satelliting Plt Morphology Comment RBC Morphology Dimorphic RBCs Polychromasia Hypochromasia Poikilocytosis Anisocytosis Microcytosis Macrocytosis Spherocytes Pappenheimer Bodies Sickle Cells Target Cells Tear Drop Cells Ovalocytes Helmet Cells Rodas-Ammon Bodies [place] Rings Sylvia Cells Bite Cells Crenated Cell Elliptocytes Acanthocytes (Spur) Rouleaux Hemoglobin C Crystals Schistocytes Malaria parasites Luis Bodies Hem Pathologist Commnt Sodium Potassium Chloride Carbon Dioxide Anion Gap BUN Creatinine Estimated GFR BUN/Creatinine Ratio Glucose Lactic Acid Calcium Total Bilirubin AST ALT Alkaline Phosphatase Total Protein Albumin Albumin/Globulin Ratio Lipase Urine Color Yellow Urine Turbidity Clear Urine pH 6.0 Ur Specific [place] 1.016 Urine Protein 30 mg/dl Urine Glucose (UA) Neg Urine Ketones Neg Urine Blood Mod Urine Nitrite Neg Urine Bilirubin Neg Urine Urobilinogen 4.0 Ur Leukocyte Esterase Neg Urine WBC (Auto) 20.0 H Urine RBC (Auto) 4.0 U Epithel Cells (Auto) 2.0 Urine Mucus 1+ Urine Yeast (Budding) Few Urine HCG, Qual Negative Assessment and Plan - Patient Problems (1) Abnormal CT scan, sigmoid colon Current Visit: Yes Status: Acute Plan to address problem: - Unclear if diverticulitis with abscess, or if fluid collection was an old seroma from prior CALVIN (would be very unusual for that to have air bubbles). - Agree with continue broad-spectrum abx, and OK to advance diet if no N/V in the AM. - Will get colonoscopy based on clinical course; would favor waiting 6-8 weeks if true abscess based on culture data.
[2019-09-11] MEDS ORDERED: ACETAMINOPHEN 650 MG RECT SUPP PR ONE (23:05)
[2019-09-12] MEDS: SODIUM CHLORIDE 0.9% 1000 ML 1,000 ML IV SCH (04:09)
[2019-09-12] MEDS: MORPHINE 2 MG/1 ML INJ IV PRN (04:51)
[2019-09-12] MEDS: metroNIDAZOLE/NS 500 MG/100 ML 500 MG/100 ML BAG IV SCH ×3 (05:00→21:32)
[2019-09-12 06:42] LABS: Basophils % (Auto) 0.2 % (0.0-1.8); Eosinophils # (Auto) 0.1 K/mm3 (0.0-0.4); Eosinophils % (Auto) 0.7 % (0.0-4.3); Hematocrit 32.2 % (30.3-42.9); Hemoglobin 10.6 gm/dl (10.1-14.3); Lymphocytes # (Auto) 1.4 K/mm3 (1.2-5.4); Mean Corpuscular HGB Conc 33 % (30-34); Mean Corpuscular Volume 83 fl (79-97); Monocytes # (Auto) 1.4 K/mm3 (0.0-0.8); Platelet Count 262 K/mm3 (140-440); Red Blood Count 3.87 M/mm3 (3.65-5.03); Red Cell Distribution Width 14.9 % (13.2-15.2)
[2019-09-12 06:55] LABS: INR 1.25 (0.87-1.13)
[2019-09-12 07:08] LABS: BUN/Creatinine Ratio 16; Blood Urea Nitrogen 11 mg/dL (7-17); Calcium 8.8 mg/dL (8.4-10.2); Hemolysis Index 12
--- NOTE | 2019-09-12 12:00 | Progress Note ---
Assessment and Plan Assessment and plan: 44-year-old -[place] female with known history of coronary artery disease, hypertension, CHF and obesity presenting to the emergency room today complaining of constipation and abdominal pain. Patient indicates that she has not had a bowel movement in 2 to 3 days. She passed a few pellets of hard stool yesterday and still feels constipated. She took some Dulcolax without any improvement. She has since been having abdominal pain which was initially generalized but now more in the lower abdomen. She denies any fever or chills, she has some nausea but no vomiting and no diarrhea, no hematuria or dysuria, no bright red blood per rectum, denies any chest pain or shortness of breath, no headache or dizziness. Patient denies any sick contacts and no recent travel. She has had total abdominal hysterectomy in the past. Work-up in the emergency room reveals significant leukocytosis on the labs, CT of the abdomen and pelvis suspicious for pelvic abscess versus diverticulitis. Attempt to drain by IR although returned small amount of blood with no abscess noted. 09/11: Patient tolerating diet today reports gas but no bowel movement yet. (1) Diverticulitis large intestine Current Visit: Yes Status: Acute Qualifiers: Diverticulitis bleeding: without bleeding Diverticulitis complication: unspecified complication status Qualified Code(s): K57.32 - Diverticulitis of large intestine without perforation or abscess without bleeding Plan to address problem: Patient has been placed on empiric IV antibiotics. We also placed on analgesic medication. Advance diet per GI recommendation outpatient colonoscopy in 6 to 8 weeks. (2) HTN (hypertension) Current Visit: No Status: Chronic Plan to address problem: Blood pressure stable. We will resume routine home medication monitor vital signs closely. (3) Obesity, morbid, BMI 40.0-49.9 Current Visit: No Status: Acute Plan to address problem: Patient has a BMI of 42.2 Request dietary consult prior to discharge. (4) sepsis Patient with fever overnight. Will obtain ID consultation to assist with management. Continue to follow cultures. (5) DVT prophylaxis Current Visit: No Status: Acute Plan to address problem: Patient placed on subcutaneous heparin. Anticipate discharge in 24 to 48 hours if patient is fever free based on recommendation of following additional specialist. Plan of care discussed with the patient also discussed with surgeon. History Interval history: Patient seen and examined, no new complaints, reports gas but no BM. No other adverse event reported by nursing staff Hospitalist Physical - Physical exam Narrative exam: VITAL SIGNS: Reviewed. GENERAL: The patient appears normally developed, obese vital signs as documented. HEAD: No signs of head trauma. EYES: Pupils are equal. Extraocular motions intact. EARS: Hearing grossly intact. MOUTH: Oropharynx is normal. NECK: No adenopathy, no JVD. CHEST: Chest with clear breath sounds bilaterally. No wheezes, rales, or rhonchi. CARDIAC: Regular rate and rhythm. S1 and S2, without murmurs, gallops, or rubs. VASCULAR: No Edema. Peripheral pulses normal and equal in all extremities. ABDOMEN: Soft, non tender and non distended. No rebound or guarding, and no masses palpated. Bowel Sounds normal. MUSCULOSKELETAL: Good range of motion of all major joints. Extremities without clubbing, cyanosis or edema. NEUROLOGIC EXAM: Alert and oriented x 3 No focal sensory or strength deficits. Speech normal. Follows commands. PSYCHIATRIC: Mood normal. SKIN: detial exam as documented in skin assessment - Constitutional Vitals: Temp Pulse Resp BP Pulse Ox 97.3 F L 90 16 104/52 98 09/12/19 06:08 09/12/19 06:08 09/12/19 06:08 09/12/19 06:08 09/12/19 06:08 General appearance: Present: no acute distress Results - Labs CBC & Chem 7: 09/12/19 04:57 09/12/19 04:57 Labs: Laboratory Last Values WBC 17.8 K/mm3 (4.5-11.0) H 09/12/19 04:57 RBC 3.87 M/mm3 (3.65-5.03) 09/12/19 04:57 Hgb 10.6 gm/dl (10.1-14.3) 09/12/19 04:57 Hct 32.2 % (30.3-42.9) 09/12/19 04:57 MCV 83 fl (79-97) 09/12/19 04:57 MCH 27 pg (28-32) L 09/12/19 04:57 MCHC 33 % (30-34) 09/12/19 04:57 RDW 14.9 % (13.2-15.2) 09/12/19 04:57 Plt Count 262 K/mm3 (140-440) 09/12/19 04:57 Lymph % (Auto) 8.0 % (13.4-35.0) L 09/12/19 04:57 [place] % (Auto) 8.0 % (0.0-7.3) H 09/12/19 04:57 Eos % (Auto) 0.7 % (0.0-4.3) 09/12/19 04:57 Baso % (Auto) 0.2 % (0.0-1.8) 09/12/19 04:57 Lymph # 1.4 K/mm3 (1.2-5.4) 09/12/19 04:57 [place] # 1.4 K/mm3 (0.0-0.8) H 09/12/19 04:57 Eos # 0.1 K/mm3 (0.0-0.4) 09/12/19 04:57 Baso # 0.0 K/mm3 (0.0-0.1) 09/12/19 04:57 Add Manual Diff Complete 09/10/19 23:22 Total Counted 100 09/10/19 23:22 Seg Neutrophils % 83.1 % (40.0-70.0) H 09/12/19 04:57 Seg Neuts % (Manual) 87.0 % (40.0-70.0) H 09/10/19 23:22 Band Neutrophils % 0 % 09/10/19 23:22 Lymphocytes % (Manual) 8.0 % (13.4-35.0) L 09/10/19 23:22 Reactive Lymphs % (Man) 0 % 09/10/19 23:22 Monocytes % (Manual) 5.0 % (0.0-7.3) 09/10/19 23:22 Eosinophils % (Manual) 0 % (0.0-4.3) 09/10/19 23:22 Basophils % (Manual) 0 % (0.0-1.8) 09/10/19 23:22 Metamyelocytes % 0 % 09/10/19 23:22 Myelocytes % 0 % 09/10/19 23:22 Promyelocytes % 0 % 09/10/19 23:22 Blast Cells % 0 % 09/10/19 23:22 Nucleated RBC % Not Reportable 09/10/19 23:22 Seg Neutrophils # 14.8 K/mm3 (1.8-7.7) H 09/12/19 04:57 Seg Neutrophils # Man 19.3 K/mm3 (1.8-7.7) H 09/10/19 23:22 Band Neutrophils # 0.0 K/mm3 09/10/19 23:22 Lymphocytes # (Manual) 1.8 K/mm3 (1.2-5.4) 09/10/19 23:22 Abs React Lymphs (Man) 0.0 K/mm3 09/10/19 23:22 Monocytes # (Manual) 1.1 K/mm3 (0.0-0.8) H 09/10/19 23:22 Eosinophils # (Manual) 0.0 K/mm3 (0.0-0.4) 09/10/19 23:22 Basophils # (Manual) 0.0 K/mm3 (0.0-0.1) 09/10/19 23:22 Metamyelocytes # 0.0 K/mm3 09/10/19 23:22 Myelocytes # 0.0 K/mm3 09/10/19 23:22 Promyelocytes # 0.0 K/mm3 09/10/19 23:22 Blast Cells # 0.0 K/mm3 09/10/19 23:22 WBC Morphology Not Reportable 09/10/19 23:22 Hypersegmented Neuts Not Reportable 09/10/19 23:22 Hyposegmented Neuts Not Reportable 09/10/19 23:22 Hypogranular Neuts Not Reportable 09/10/19 23:22 Smudge Cells Not Reportable 09/10/19 23:22 Toxic Granulation Not Reportable 09/10/19 23:22 Toxic Vacuolation Not Reportable 09/10/19 23:22 Dohle Bodies Not Reportable 09/10/19 23:22 Pelger-Huet Anomaly Not Reportable 09/10/19 23:22 Kristine Rods Not Reportable 09/10/19 23:22 Platelet Estimate Consistent w auto 09/10/19 23:22 Clumped Platelets Not Reportable 09/10/19 23:22 Plt Clumps, EDTA Not Reportable 09/10/19 23:22 Large Platelets Not Reportable 09/10/19 23:22 Giant Platelets Not Reportable 09/10/19 23:22 Platelet Satelliting Not Reportable 09/10/19 23:22 Plt Morphology Comment Not Reportable 09/10/19 23:22 RBC Morphology Not Reportable 09/10/19 23:22 Dimorphic RBCs Not Reportable 09/10/19 23:22 Polychromasia Not Reportable 09/10/19 23:22 Hypochromasia Not Reportable 09/10/19 23:22 Poikilocytosis Not Reportable 09/10/19 23:22 Anisocytosis Few 09/10/19 23:22 Microcytosis Not Reportable 09/10/19 23:22 Macrocytosis Not Reportable 09/10/19 23:22 Spherocytes Not Reportable 09/10/19 23:22 Pappenheimer Bodies Not Reportable 09/10/19 23:22 Sickle Cells Not Reportable 09/10/19 23:22 Target Cells Not Reportable 09/10/19 23:22 Tear Drop Cells Not Reportable 09/10/19 23:22 Ovalocytes Few 09/10/19 23:22 Helmet Cells Not Reportable 09/10/19 23:22 Rod[place] Bodies Not Reportable 09/10/19 23:22 [place] Rings Not Reportable 09/10/19 23:22 [place] Cells Not Reportable 09/10/19 23:22 Bite Cells Not Reportable 09/10/19 23:22 Crenated Cell Not Reportable 09/10/19 23:22 Elliptocytes Not Reportable 09/10/19 23:22 Acanthocytes (Spur) Not Reportable 09/10/19 23:22 Rouleaux Not Reportable 09/10/19 23:22 Hemoglobin C Crystals Not Reportable 09/10/19 23:22 Schistocytes Not Reportable 09/10/19 23:22 Malaria parasites Not Reportable 09/10/19 23:22 Luis Bodies Not Reportable 09/10/19 23:22 Hem Pathologist Commnt No 09/10/19 23:22 PT 15.8 Sec. (12.2-14.9) H 09/12/19 04:57 INR 1.25 (0.87-1.13) H 09/12/19 04:57 Sodium 138 mmol/L (137-145) 09/12/19 04:57 Potassium 3.4 mmol/L (3.6-5.0) L 09/12/19 04:57 Chloride 98.4 mmol/L (98-107) 09/12/19 04:57 Carbon Dioxide 24 mmol/L (22-30) 09/12/19 04:57 Anion Gap 19 mmol/L 09/12/19 04:57 BUN 11 mg/dL (7-17) 09/12/19 04:57 Creatinine 0.7 mg/dL (0.7-1.2) 09/12/19 04:57 Estimated GFR > 60 ml/min 09/12/19 04:57 BUN/Creatinine Ratio 16 % 09/12/19 04:57 Glucose 86 mg/dL (65-100) 09/12/19 04:57 Lactic Acid 1.20 mmol/L (0.7-2.0) 09/11/19 01:08 Calcium 8.8 mg/dL (8.4-10.2) 09/12/19 04:57 Total Bilirubin 0.60 mg/dL (0.1-1.2) 09/10/19 23:22 AST 40 units/L (5-40) 09/10/19 23:22 ALT 28 units/L (7-56) 09/10/19 23:22 Alkaline Phosphatase 113 units/L (35-129) 09/10/19 23:22 Total Protein 8.2 g/dL (6.3-8.2) 09/10/19 23:22 Albumin 3.5 g/dL (3.9-5) L 09/10/19 23:22 Albumin/Globulin Ratio 0.7 % 09/10/19 23:22 Lipase 24 units/L (13-60) 09/10/19 23:22 Urine Color Yellow (Yellow) 09/11/19 Unknown Urine Turbidity Clear (Clear) 09/11/19 Unknown Urine pH 6.0 (5.0-7.0) 09/11/19 Unknown Ur Specific [place] 1.016 (1.003-1.030) 09/11/19 Unknown Urine Protein 30 mg/dl mg/dL (Negative) 09/11/19 Unknown Urine Glucose (UA) Neg mg/dL (Negative) 09/11/19 Unknown Urine Ketones Neg mg/dL (Negative) 09/11/19 Unknown Urine Blood Mod (Negative) 09/11/19 Unknown Urine Nitrite Neg (Negative) 09/11/19 Unknown Urine Bilirubin Neg (Negative) 09/11/19 Unknown Urine Urobilinogen 4.0 mg/dL (<2.0) 09/11/19 Unknown Ur Leukocyte Esterase Neg (Negative) 09/11/19 Unknown Urine WBC (Auto) 20.0 /HPF (0.0-6.0) H 09/11/19 Unknown Urine RBC (Auto) 4.0 /HPF (0.0-6.0) 09/11/19 Unknown U Epithel Cells (Auto) 2.0 /HPF (0-13.0) 09/11/19 Unknown Urine Mucus 1+ /HPF 09/11/19 Unknown Urine Yeast (Budding) Few /HPF 09/11/19 Unknown Urine HCG, Qual Negative (Negative) 09/11/19 Unknown Microbiology: Microbiology 09/11/19 01:08 Peripheral/Venous Blood Culture - Preliminary NO GROWTH AFTER 24 HOURS 09/11/19 01:34 Peripheral/Venous Blood Culture - Preliminary NO GROWTH AFTER 24 HOURS Gould/IV: Voiding Method Toilet IV Catheter Type [Right INT / Saline Lock Antecubital] Active Medications - Current Medications Current Medications: Generic Name Dose Route Start Last Admin Trade Name Freq PRN Reason Stop Dose Admin Acetaminophen 650 mg 09/11/19 04:52 Tylenol PO Q4H PRN Pain MILD(1-3)/Fever >100.5/BAILEY Levofloxacin/Dextrose 750 mg in 150 mls @ 100 mls/hr 09/12/19 06:00 09/12/19 06:00 Levaquin 750mg/150ml IV 100 mls/hr Q24H JACE Administration Protocol Metronidazole 500 mg in 100 mls @ 100 mls/hr 09/11/19 06:00 09/12/19 05:00 Flagyl 500 Mg/100 Ml IV 100 mls/hr Q8HR JACE Administration Protocol Sodium Chloride 1,000 mls @ 75 mls/hr 09/11/19 05:00 09/12/19 04:09 Nacl 0.9% 1000 Ml IV 75 mls/hr DIRECT JACE Administration Morphine Sulfate 2 mg 09/11/19 04:52 09/12/19 04:51 Morphine IV 2 mg Q4H PRN Administration Pain, Moderate (4-6) Ondansetron HCl 4 mg 09/11/19 04:52 Zofran IV Q8H PRN Nausea And Vomiting Sodium Chloride 10 ml 09/11/19 10:00 09/11/19 21:50 Sodium Chloride Flush Syringe 10 Ml IV 10 ml BID JACE Administration Sodium Chloride 10 ml 09/11/19 04:52 Sodium Chloride Flush Syringe 10 Ml IV PRN PRN LINE FLUSH Nutrition/Malnutrition Assess - Dietary Evaluation Nutrition/Malnutrition Findings: Nutrition Notes Start: 09/12/19 10:03 Freq: Status: Active Protocol: Document 09/12/19 10:03 LM (Rec: 09/12/19 10:03 LM [id number]) Nutrition Notes 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 Jamil score is 19. No wound documented in chart. Nutrition Intervention Revisit per MD consult or patient Sign Off request:
--- NOTE | 2019-09-12 13:32 | Progress Note ---
Assessment and Plan - Patient Problems (1) Diverticular disease of intestine with perforation and abscess Current Visit: Yes Status: Acute Plan to address problem: Pt stable. Patient is much improved. What was initially thought to be a diverticular abscess may not be the case. In discussion with Dr. Kiran yesterday, the fluid that was aspirated appeared serous. It was not purulent as expected. Not sure what to make of the air associated with the fluid collection that was seen on CT. Fistula from Manager Of Revenue surgery? We will follow-up on the culture results. Patient is feeling much better. She is passing gas. Denies any nausea or vomiting. We will advance her diet. I will give her some laxative treatment to help her have a bowel movement. Continue IV antibiotics for now. We will follow along. Please call with any questions. Time=10min Subjective Date of service: 09/12/19 Patient Reports: Positive: feels better, pain is less, flatus, no bowel movement, fever. Negative: nausea, vomiting Objective Vital Signs - 12hr 09/12/19 09/12/19 06:08 11:57 Temperature 97.3 F L 99.1 F Pulse Rate 90 98 H Respiratory 16 20 Rate Blood Pressure 104/52 103/63 O2 Sat by Pulse 98 96 Oximetry - General physical appearance no distress, no pain, obese, other (looks better) - Eyes normal occular movement - Respiratory normal expansion, normal respiratory effort - Abdomen soft, tender (minimal in lower abdomen), not guarding, not rigid - Integumentary no rash, no growths, no abnormal pigmentation - Psychiatric oriented to time, oriented to person, oriented to place, speech is normal, memory intact - Labs 09/12/19 04:57 09/12/19 04:57 Diabetes panel 09/12/19 Range/Units 04:57 Sodium 138 (137-145) mmol/L Potassium 3.4 L (3.6-5.0) mmol/L Chloride 98.4 (98-107) mmol/L Carbon Dioxide 24 (22-30) mmol/L BUN 11 (7-17) mg/dL Creatinine 0.7 (0.7-1.2) mg/dL Glucose 86 (65-100) mg/dL Calcium 8.8 (8.4-10.2) mg/dL Calcium panel 09/12/19 Range/Units 04:57 Calcium 8.8 (8.4-10.2) mg/dL Pituitary panel 09/12/19 Range/Units 04:57 Sodium 138 (137-145) mmol/L Potassium 3.4 L (3.6-5.0) mmol/L Chloride 98.4 (98-107) mmol/L Carbon Dioxide 24 (22-30) mmol/L BUN 11 (7-17) mg/dL Creatinine 0.7 (0.7-1.2) mg/dL Glucose 86 (65-100) mg/dL Calcium 8.8 (8.4-10.2) mg/dL Adrenal panel 09/12/19 Range/Units 04:57 Sodium 138 (137-145) mmol/L Potassium 3.4 L (3.6-5.0) mmol/L Chloride 98.4 (98-107) mmol/L Carbon Dioxide 24 (22-30) mmol/L BUN 11 (7-17) mg/dL Creatinine 0.7 (0.7-1.2) mg/dL Glucose 86 (65-100) mg/dL Calcium 8.8 (8.4-10.2) mg/dL
[2019-09-12] MEDS ORDERED: POLYETHYLENE GLYCOL 3350 17 GM POWDER PO ONE (14:00)
--- NOTE | 2019-09-12 19:05 | Gastroenterology Progress Note ---
Assessment and Plan - Patient Problems (1) Abnormal CT scan, sigmoid colon Current Visit: Yes Status: Acute Plan to address problem: - Unclear if diverticulitis with abscess, or if fluid collection was an old seroma from prior CALVIN (would be very unusual for that to have air bubbles). - Agree with continue broad-spectrum abx, and OK to transition to PO abx and d/c home. - Will get colonoscopy based on clinical course; would favor waiting 6-8 weeks i f true abscess based on culture data. - Will sign off; please call if needed; expect d/c in the AM. Subjective Date of service: 09/12/19 Principal diagnosis: Abnormal CT Colon Interval history: The patient feels markedly better, and has no emesis/minimal pain. She is tolerating a regular diet. She has not had a bowel movement yet, but is tolerating her miralax. Objective - Constitutional Vitals: Temp Pulse Resp BP Pulse Ox 99.3 F 101 H 19 119/66 95 09/12/19 17:26 09/12/19 17:26 09/12/19 17:26 09/12/19 17:26 09/12/19 17:26 General appearance: no acute distress - EENT Eyes: PERRL, EOM intact - Respiratory Respiratory effort: normal Respiratory: bilateral: CTA - Cardiovascular Rhythm: regular Heart Sounds: Present: S1 & S2 - Gastrointestinal General gastrointestinal: Present: soft, non-tender, non-distended - Labs CBC & Chem 7: 09/12/19 04:57 09/12/19 04:57 Labs: Laboratory Results - last 24 hr 09/12/19 09/12/19 09/12/19 04:57 04:57 04:57 WBC 17.8 H RBC 3.87 Hgb 10.6 Hct 32.2 MCV 83 MCH 27 L MCHC 33 RDW 14.9 Plt Count 262 Lymph % (Auto) 8.0 L [place] % (Auto) 8.0 H Eos % (Auto) 0.7 Baso % (Auto) 0.2 Lymph # 1.4 [place] # 1.4 H Eos # 0.1 Baso # 0.0 Seg Neutrophils % 83.1 H Seg Neutrophils # 14.8 H PT 15.8 H INR 1.25 H Sodium 138 Potassium 3.4 L Chloride 98.4 Carbon Dioxide 24 Anion Gap 19 BUN 11 Creatinine 0.7 Estimated GFR > 60 BUN/Creatinine Ratio 16 Glucose 86 Calcium 8.8
[2019-09-12] MEDS: SENNOSIDES 8.6 MG TAB PO SCH (21:31)
[2019-09-13] MEDS: SODIUM CHLORIDE 0.9% 1000 ML 1,000 ML IV SCH (00:57)
[2019-09-13] MEDS: metroNIDAZOLE/NS 500 MG/100 ML 500 MG/100 ML BAG IV SCH ×5 (06:00→21:52)
[2019-09-13 08:41] LABS: Basophils % (Auto) 0.2 % (0.0-1.8); Eosinophils # (Auto) 0.2 K/mm3 (0.0-0.4); Eosinophils % (Auto) 0.9 % (0.0-4.3); Hematocrit 33.5 % (30.3-42.9); Hemoglobin 10.7 gm/dl (10.1-14.3); Lymphocytes # (Auto) 1.3 K/mm3 (1.2-5.4); Mean Corpuscular HGB Conc 32 % (30-34); Mean Corpuscular Volume 84 fl (79-97); Monocytes # (Auto) 1.5 K/mm3 (0.0-0.8); Monocytes % (Auto) 9.1 % (0.0-7.3); Platelet Count 286 K/mm3 (140-440); Red Blood Count 3.98 M/mm3 (3.65-5.03); Red Cell Distribution Width 15.2 % (13.2-15.2)
[2019-09-13] MEDS: SENNOSIDES 8.6 MG TAB PO SCH ×2 (09:28→21:52)
--- NOTE | 2019-09-13 12:42 | Progress Note ---
Assessment and Plan Assessment and plan: 44-year-old -Filipino female with known history of coronary artery disease, hypertension, CHF and obesity presenting to the emergency room today complaining of constipation and abdominal pain. Patient indicates that she has not had a bowel movement in 2 to 3 days. She passed a few pellets of hard stool yesterday and still feels constipated. She took some Dulcolax without any improvement. She has since been having abdominal pain which was initially generalized but now more in the lower abdomen. She denies any fever or chills, she has some nausea but no vomiting and no diarrhea, no hematuria or dysuria, no bright red blood per rectum, denies any chest pain or shortness of breath, no headache or dizziness. Patient denies any sick contacts and no recent travel. She has had total abdominal hysterectomy in the past. Work-up in the emergency room reveals significant leukocytosis on the labs, CT of the abdomen and pelvis suspicious for pelvic abscess versus diverticulitis. Attempt to drain by IR although returned small amount of blood with no abscess noted. 09/11: Patient tolerating diet today reports gas but no bowel movement yet. 09/12: GI input noted, no new fever, start with Dulculax suppository anticipate discharge in am. ID to see and recommend mets. (1) Diverticulitis large intestine Current Visit: Yes Status: Acute Qualifiers: Diverticulitis bleeding: without bleeding Diverticulitis complication: unspecified complication status Qualified Code(s): K57.32 - Diverticulitis of large intestine without perforation or abscess without bleeding Plan to address problem: Patient has been placed on empiric IV antibiotics. We also placed on analgesic medication. Advance diet per GI recommendation outpatient colonoscopy in 6 to 8 weeks. (2) HTN (hypertension) Current Visit: No Status: Chronic Plan to address problem: Blood pressure stable. We will resume routine home medication monitor vital signs closely. (3) Obesity, morbid, BMI 40.0-49.9 Current Visit: No Status: Acute Plan to address problem: Patient has a BMI of 42.2 Request dietary consult prior to discharge. (4) sepsis Patient with fever overnight. Will obtain ID consultation to assist with management. Continue to follow cultures. (5) DVT prophylaxis Current Visit: No Status: Acute Plan to address problem: Patient placed on subcutaneous heparin. Anticipate discharge in 24 to 48 hours if patient is fever free based on recommendation of following additional specialist. Plan of care discussed with the patient also discussed with surgeon. History Interval history: Patient seen and examined, no new complaints, reports gas but no BM yet. No other adverse event reported by nursing staff Hospitalist Physical - Physical exam Narrative exam: VITAL SIGNS: Reviewed. GENERAL: The patient appears normally developed, obese vital signs as documented. HEAD: No signs of head trauma. EYES: Pupils are equal. Extraocular motions intact. EARS: Hearing grossly intact. MOUTH: Oropharynx is normal. NECK: No adenopathy, no JVD. CHEST: Chest with clear breath sounds bilaterally. No wheezes, rales, or rhonchi. CARDIAC: Regular rate and rhythm. S1 and S2, without murmurs, gallops, or rubs. VASCULAR: No Edema. Peripheral pulses normal and equal in all extremities. ABDOMEN: Soft, non tender and non distended. No rebound or guarding, and no masses palpated. Bowel Sounds normal. MUSCULOSKELETAL: Good range of motion of all major joints. Extremities without clubbing, cyanosis or edema. NEUROLOGIC EXAM: Alert and oriented x 3 No focal sensory or strength deficits. Speech normal. Follows commands. PSYCHIATRIC: Mood normal. SKIN: detial exam as documented in skin assessment - Constitutional Vitals: Temp Pulse Resp BP Pulse Ox 98.5 F 90 18 123/57 95 09/13/19 05:34 09/13/19 05:34 09/13/19 05:34 09/13/19 05:34 09/13/19 05:34 General appearance: Present: no acute distress Results - Labs CBC & Chem 7: 09/13/19 08:17 09/12/19 04:57 Labs: Laboratory Last Values WBC 16.6 K/mm3 (4.5-11.0) H 09/13/19 08:17 RBC 3.98 M/mm3 (3.65-5.03) 09/13/19 08:17 Hgb 10.7 gm/dl (10.1-14.3) 09/13/19 08:17 Hct 33.5 % (30.3-42.9) 09/13/19 08:17 MCV 84 fl (79-97) 09/13/19 08:17 MCH 27 pg (28-32) L 09/13/19 08:17 MCHC 32 % (30-34) 09/13/19 08:17 RDW 15.2 % (13.2-15.2) 09/13/19 08:17 Plt Count 286 K/mm3 (140-440) 09/13/19 08:17 Lymph % (Auto) 8.0 % (13.4-35.0) L 09/13/19 08:17 [place] % (Auto) 9.1 % (0.0-7.3) H 09/13/19 08:17 Eos % (Auto) 0.9 % (0.0-4.3) 09/13/19 08:17 Baso % (Auto) 0.2 % (0.0-1.8) 09/13/19 08:17 Lymph # 1.3 K/mm3 (1.2-5.4) 09/13/19 08:17 [place] # 1.5 K/mm3 (0.0-0.8) H 09/13/19 08:17 Eos # 0.2 K/mm3 (0.0-0.4) 09/13/19 08:17 Baso # 0.0 K/mm3 (0.0-0.1) 09/13/19 08:17 Add Manual Diff Complete 09/10/19 23:22 Total Counted 100 09/10/19 23:22 Seg Neutrophils % 81.8 % (40.0-70.0) H 09/13/19 08:17 Seg Neuts % (Manual) 87.0 % (40.0-70.0) H 09/10/19 23:22 Band Neutrophils % 0 % 09/10/19 23:22 Lymphocytes % (Manual) 8.0 % (13.4-35.0) L 09/10/19 23:22 Reactive Lymphs % (Man) 0 % 09/10/19 23:22 Monocytes % (Manual) 5.0 % (0.0-7.3) 09/10/19 23:22 Eosinophils % (Manual) 0 % (0.0-4.3) 09/10/19 23:22 Basophils % (Manual) 0 % (0.0-1.8) 09/10/19 23:22 Metamyelocytes % 0 % 09/10/19 23:22 Myelocytes % 0 % 09/10/19 23:22 Promyelocytes % 0 % 09/10/19 23:22 Blast Cells % 0 % 09/10/19 23:22 Nucleated RBC % Not Reportable 09/10/19 23:22 Seg Neutrophils # 13.6 K/mm3 (1.8-7.7) H 09/13/19 08:17 Seg Neutrophils # Man 19.3 K/mm3 (1.8-7.7) H 09/10/19 23:22 Band Neutrophils # 0.0 K/mm3 09/10/19 23:22 Lymphocytes # (Manual) 1.8 K/mm3 (1.2-5.4) 09/10/19 23:22 Abs React Lymphs (Man) 0.0 K/mm3 09/10/19 23:22 Monocytes # (Manual) 1.1 K/mm3 (0.0-0.8) H 09/10/19 23:22 Eosinophils # (Manual) 0.0 K/mm3 (0.0-0.4) 09/10/19 23:22 Basophils # (Manual) 0.0 K/mm3 (0.0-0.1) 09/10/19 23:22 Metamyelocytes # 0.0 K/mm3 09/10/19 23:22 Myelocytes # 0.0 K/mm3 09/10/19 23:22 Promyelocytes # 0.0 K/mm3 09/10/19 23:22 Blast Cells # 0.0 K/mm3 09/10/19 23:22 WBC Morphology Not Reportable 09/10/19 23:22 Hypersegmented Neuts Not Reportable 09/10/19 23:22 Hyposegmented Neuts Not Reportable 09/10/19 23:22 Hypogranular Neuts Not Reportable 09/10/19 23:22 Smudge Cells Not Reportable 09/10/19 23:22 Toxic Granulation Not Reportable 09/10/19 23:22 Toxic Vacuolation Not Reportable 09/10/19 23:22 Dohle Bodies Not Reportable 09/10/19 23:22 Pelger-Huet Anomaly Not Reportable 09/10/19 23:22 Kristine Rods Not Reportable 09/10/19 23:22 Platelet Estimate Consistent w auto 09/10/19 23:22 Clumped Platelets Not Reportable 09/10/19 23:22 Plt Clumps, EDTA Not Reportable 09/10/19 23:22 Large Platelets Not Reportable 09/10/19 23:22 Giant Platelets Not Reportable 09/10/19 23:22 Platelet Satelliting Not Reportable 09/10/19 23:22 Plt Morphology Comment Not Reportable 09/10/19 23:22 RBC Morphology Not Reportable 09/10/19 23:22 Dimorphic RBCs Not Reportable 09/10/19 23:22 Polychromasia Not Reportable 09/10/19 23:22 Hypochromasia Not Reportable 09/10/19 23:22 Poikilocytosis Not Reportable 09/10/19 23:22 Anisocytosis Few 09/10/19 23:22 Microcytosis Not Reportable 09/10/19 23:22 Macrocytosis Not Reportable 09/10/19 23:22 Spherocytes Not Reportable 09/10/19 23:22 Pappenheimer Bodies Not Reportable 09/10/19 23:22 Sickle Cells Not Reportable 09/10/19 23:22 Target Cells Not Reportable 09/10/19 23:22 Tear Drop Cells Not Reportable 09/10/19 23:22 Ovalocytes Few 09/10/19 23:22 Helmet Cells Not Reportable 09/10/19 23:22 [place] Bodies Not Reportable 09/10/19 23:22 [place] Rings Not Reportable 09/10/19 23:22 Eva Cells Not Reportable 09/10/19 23:22 Bite Cells Not Reportable 09/10/19 23:22 Crenated Cell Not Reportable 09/10/19 23:22 Elliptocytes Not Reportable 09/10/19 23:22 Acanthocytes (Spur) Not Reportable 09/10/19 23:22 Rouleaux Not Reportable 09/10/19 23:22 Hemoglobin C Crystals Not Reportable 09/10/19 23:22 Schistocytes Not Reportable 09/10/19 23:22 Malaria parasites Not Reportable 09/10/19 23:22 Luis Bodies Not Reportable 09/10/19 23:22 Hem Pathologist Commnt No 09/10/19 23:22 PT 15.8 Sec. (12.2-14.9) H 09/12/19 04:57 INR 1.25 (0.87-1.13) H 09/12/19 04:57 Sodium 138 mmol/L (137-145) 09/12/19 04:57 Potassium 3.4 mmol/L (3.6-5.0) L 09/12/19 04:57 Chloride 98.4 mmol/L (98-107) 09/12/19 04:57 Carbon Dioxide 24 mmol/L (22-30) 09/12/19 04:57 Anion Gap 19 mmol/L 09/12/19 04:57 BUN 11 mg/dL (7-17) 09/12/19 04:57 Creatinine 0.7 mg/dL (0.7-1.2) 09/12/19 04:57 Estimated GFR > 60 ml/min 09/12/19 04:57 BUN/Creatinine Ratio 16 % 09/12/19 04:57 Glucose 86 mg/dL (65-100) 09/12/19 04:57 Lactic Acid 1.20 mmol/L (0.7-2.0) 09/11/19 01:08 Calcium 8.8 mg/dL (8.4-10.2) 09/12/19 04:57 Total Bilirubin 0.60 mg/dL (0.1-1.2) 09/10/19 23:22 AST 40 units/L (5-40) 09/10/19 23:22 ALT 28 units/L (7-56) 09/10/19 23:22 Alkaline Phosphatase 113 units/L (35-129) 09/10/19 23:22 Total Protein 8.2 g/dL (6.3-8.2) 09/10/19 23:22 Albumin 3.5 g/dL (3.9-5) L 09/10/19 23:22 Albumin/Globulin Ratio 0.7 % 09/10/19 23:22 Lipase 24 units/L (13-60) 09/10/19 23:22 Urine Color Yellow (Yellow) 09/11/19 Unknown Urine Turbidity Clear (Clear) 09/11/19 Unknown Urine pH 6.0 (5.0-7.0) 09/11/19 Unknown Ur Specific [place] 1.016 (1.003-1.030) 09/11/19 Unknown Urine Protein 30 mg/dl mg/dL (Negative) 09/11/19 Unknown Urine Glucose (UA) Neg mg/dL (Negative) 09/11/19 Unknown Urine Ketones Neg mg/dL (Negative) 09/11/19 Unknown Urine Blood Mod (Negative) 09/11/19 Unknown Urine Nitrite Neg (Negative) 09/11/19 Unknown Urine Bilirubin Neg (Negative) 09/11/19 Unknown Urine Urobilinogen 4.0 mg/dL (<2.0) 09/11/19 Unknown Ur Leukocyte Esterase Neg (Negative) 09/11/19 Unknown Urine WBC (Auto) 20.0 /HPF (0.0-6.0) H 09/11/19 Unknown Urine RBC (Auto) 4.0 /HPF (0.0-6.0) 09/11/19 Unknown U Epithel Cells (Auto) 2.0 /HPF (0-13.0) 09/11/19 Unknown Urine Mucus 1+ /HPF 09/11/19 Unknown Urine Yeast (Budding) Few /HPF 09/11/19 Unknown Urine HCG, Qual Negative (Negative) 09/11/19 Unknown Microbiology: Microbiology 09/11/19 Unknown Urine,Clean Catch Urine Culture - Preliminary 09/11/19 01:08 Peripheral/Venous Blood Culture - Preliminary NO GROWTH AFTER 48 HOURS 09/11/19 01:34 Peripheral/Venous Blood Culture - Preliminary NO GROWTH AFTER 48 HOURS Gould/IV: Voiding Method Toilet IV Catheter Type [Right INT / Saline Lock Antecubital] Active Medications - Current Medications Current Medications: Generic Name Dose Route Start Last Admin Trade Name Freq PRN Reason Stop Dose Admin Acetaminophen 650 mg 09/11/19 04:52 Tylenol PO Q4H PRN Pain MILD(1-3)/Fever >100.5/BAILEY Levofloxacin/Dextrose 750 mg in 150 mls @ 100 mls/hr 09/12/19 06:00 09/13/19 05:56 Levaquin 750mg/150ml IV 100 mls/hr Q24H JACE Administration Protocol Metronidazole 500 mg in 100 mls @ 100 mls/hr 09/11/19 06:00 09/13/19 09:40 Flagyl 500 Mg/100 Ml IV Not Given Q8HR JACE Protocol Sodium Chloride 1,000 mls @ 75 mls/hr 09/11/19 05:00 09/13/19 00:57 Nacl 0.9% 1000 Ml IV 75 mls/hr DIRECT JACE Administration Morphine Sulfate 2 mg 09/11/19 04:52 09/12/19 04:51 Morphine IV 2 mg Q4H PRN Administration Pain, Moderate (4-6) Ondansetron HCl 4 mg 09/11/19 04:52 Zofran IV Q8H PRN Nausea And Vomiting Senna 8.6 mg 09/12/19 22:00 09/13/19 09:28 Senokot PO 8.6 mg Q12H JACE Administration Sodium Chloride 10 ml 09/11/19 10:00 09/13/19 09:30 Sodium Chloride Flush Syringe 10 Ml IV 10 ml BID JACE Administration Sodium Chloride 10 ml 09/11/19 04:52 Sodium Chloride Flush Syringe 10 Ml IV PRN PRN LINE FLUSH Nutrition/Malnutrition Assess - Dietary Evaluation Nutrition/Malnutrition Findings: Nutrition Notes Start: 09/12/19 10:03 Freq: Status: Active Protocol: Document 09/12/19 10:03 LM (Rec: 09/12/19 10:03 LM [id number]) Nutrition Notes Need for Assessment generated from: analytical engineer Initial or Follow up Brief Note Subjective/Other Information RM screen for skin risk. Jamil score is 19. No wound documented in chart. Nutrition Intervention Revisit per MD consult or patient Sign Off request:
--- NOTE | 2019-09-13 12:48 | Consultation ---
History of Present Illness - Reason for Consult Consult date: 09/13/19 Sepsis Requesting physician: KATHY JEWELL - History of Present Illness The patient is a 44-year-old female with coronary artery disease, CHF, hypertension, obesity, h/o abdominal hysterectomy in 2017 was admitted to the hospital with complaints of abdominal pain and constipation. CT scan of the abd omen and pelvis done in the ER was suspicious for possible pelvic abscess with diverticulitis. She was also having intermittent fevers. Started on empiric antibiotics. General surgery was consulted, recommended IR aspiration. Underwent aspiration by IR Dr. Kiran, fluid appeared serous and not purulent. Question of fistula from her recent hysterectomy has been raised. No fever today. WBC trending down. Abdominal pain is improving. She is passing gas but no BM yet. Review of Systems: General: intermittent fevers HEENT: no new visual disturbance Respiratory: No cough, sputum, hemoptysis or shortness of breath Cardiovascular: No chest pain, syncope Gastrointestinal: No nausea, vomiting or diarrhea Genitourinary: No dysuria or hematuria Musculoskeletal: No new or worsening neck pain or back pain Neurologic: No headaches, seizures Hematologic: No easy bruising or bleeding Endocrine: No night sweats or acute weight loss Skin: negative for rash, jaundice Psychiatric: No suicidal or homicidal ideation Past History Past Medical History: CAD, heart failure (AICD), hypertension Past Surgical History: hysterectomy (laparoscopic), Other (AICD placement) Social history: no significant social history. denies: smoking, alcohol abuse Family history: no significant family history Medications and Allergies Allergies Allergy/AdvReac Type Severity Reaction Status Date / Time No Known Allergies Allergy Verified 03/30/19 17:44 Home Medications Medication Instructions Recorded Confirmed Last Taken Type Aspirin EC [Halfprin EC] 81 mg PO QDAY #30 tablet. 09/06/16 03/31/19 02/27/17 08:00 Rx Losartan [Cozaar] 100 mg PO QDAY #30 tablet 09/07/16 03/31/19 02/27/17 Rx carvediloL [Coreg] 25 mg PO BID 02/28/17 03/31/19 02/27/17 History HYDROcodone/APAP 5-325 [[place] 1 each PO Q6H PRN #10 tablet 03/01/17 03/31/19 Unknown Rx 5-325 mg TAB] Furosemide [Lasix TAB] 40 mg PO QDAY #30 tablet 04/02/19 Unknown Rx Active Meds: Active Medications Acetaminophen (Tylenol) 650 mg PO Q4H PRN PRN Reason: Pain MILD(1-3)/Fever >100.5/BAILEY Levofloxacin/Dextrose (Levaquin 750mg/150ml) 750 mg in 150 mls @ 100 mls/hr IV Q24H [facility]; Protocol Last Admin: 09/13/19 05:56 Dose: 100 mls/hr Documented by: Metronidazole (Flagyl 500 Mg/100 Ml) 500 mg in 100 mls @ 100 mls/hr IV Q8HR [facility]; Protocol Last Admin: 09/13/19 09:40 Dose: Not Given Documented by: Sodium Chloride (Nacl 0.9% 1000 Ml) 1,000 mls @ 75 mls/hr IV DIRECT JACE Last Admin: 09/13/19 00:57 Dose: 75 mls/hr Documented by: Morphine Sulfate (Morphine) 2 mg IV Q4H PRN PRN Reason: Pain, Moderate (4-6) Last Admin: 09/12/19 04:51 Dose: 2 mg Documented by: Ondansetron HCl (Zofran) 4 mg IV Q8H PRN PRN Reason: Nausea And Vomiting Senna (Senokot) 8.6 mg PO Q12H [facility] Last Admin: 09/13/19 09:28 Dose: 8.6 mg Documented by: Sodium Chloride (Sodium Chloride Flush Syringe 10 Ml) 10 ml IV BID [facility] Last Admin: 09/13/19 09:30 Dose: 10 ml Documented by: Sodium Chloride (Sodium Chloride Flush Syringe 10 Ml) 10 ml IV PRN PRN PRN Reason: LINE FLUSH Physical Examination - Physical Exam Narrative exam: Physical Exam: Constitutional: Alert, cooperative. No acute distress. Obese Head, Ears, Nose: Normocephalic, atraumatic. External ears, nose normal Eyes: Conjunctivae/corneas clear. No icterus. No ptosis. Neck: Supple, no meningeal signs Cardiovascular: S1, S2 normal. Respiratory: Good air entry, clear to auscultation bilaterally GI: Soft, lower abdominal tenderness; bowel sounds normal. No peritoneal signs Musculoskeletal: No pedal edema, no cyanosis. Skin: No rash or abscess Hem/Lymphatic: No palpable cervical or supraclavicular nodes. No lymphangitis Psych: Mood ok. Affect normal Neurological: Awake, alert, oriented. No gross abnormality - Constitutional Vitals: Vital Signs Temp Pulse Resp BP Pulse Ox 98.5 F 90 18 123/57 95 09/13/19 05:34 09/13/19 05:34 09/13/19 05:34 09/13/19 05:34 09/13/19 05:34 Temperature -Last 24 Hours Temperature 98.5 F Temperature 99.0 F Temperature 99.3 F Results - Labs CBC & Chem 7: 09/13/19 08:17 09/12/19 04:57 Labs: Abnormal lab results 09/13/19 Range/Units 08:17 WBC 16.6 H (4.5-11.0) K/mm3 MCH 27 L (28-32) pg Lymph % (Auto) 8.0 L (13.4-35.0) % [place] % (Auto) 9.1 H (0.0-7.3) % [place] # 1.5 H (0.0-0.8) K/mm3 Seg Neutrophils % 81.8 H (40.0-70.0) % Seg Neutrophils # 13.6 H (1.8-7.7) K/mm3 Assessment and Plan Cultures: 09/11/2019 blood culture: No growth 09/11/2019 urine culture: In process A/P: 44-year-old female with coronary artery disease, CHF, hypertension, obesity, h/o abdominal hysterectomy in 2017 admitted with abdominal pain and constipation: #Pelvic fluid collection v/s abscess: etiology diverticulitis related v/s question of of fistula from her recent hysterectomy has been raised as upon IR aspiration by Dr. Kiran, fluid appeared serous and not purulent, hence no cultures were sent. Did have intermittent fevers and leucocytosis which appears to be downtrending. Hence, I would treat this as an abscess for now. #Acute diverticulitis: abx and supportive care. #Constipation Recs: Levofloxacin switched to IV Ceftriaxone continue Flagyl Follow up cultures from IR aspiration dated 09/11/2019 anticipate discharging on PO Augmentin 875 mg BID x 10 days Daron Burger MD, FACP [facility] ([facility] C: [phone] O: [phone] F: [phone]
--- NOTE | 2019-09-13 14:13 | Progress Note ---
Assessment and Plan - Patient Problems (1) Diverticular disease of intestine with perforation and abscess Current Visit: Yes Status: Acute Plan to address problem: Pt stable. Patient is much improved. What was initially thought to be a diverticular abscess may not be the case. In discussion with Dr. Kiran, the fluid that was aspirated appeared serous. It was not purulent as expected. Not sure what to make of the air associated with the fluid collection that was seen on CT. Fistula from Network Technician surgery? We will follow-up on the culture results. Patient is feeling much better. She is passing gas and had a BM. Denies any nausea or vomiting. Tolerated soft diet. Recommendations: 1) okay to discharge from my perspective whenever cleared by medicine. 2. Needs to follow-up with GI for outpatient colonoscopy 3. Diet as tolerated 4. Needs to begin bowel regimen as an outpatient. I advised her to begin Metamucil or Citrucel daily. She may use Senokot and/or MiraLAX to help with bowel movements. 5. May be worthwhile for her to follow-up with PCP or HIGH SCHOOL SCIENCE TUTOR to reassess this left lower quadrant fluid collection as it does not appear to be related to diverticulitis as we initially thought. Would recommend a repeat CT scan in 3 months. Will be available if needed. Please call with any questions. Time=10min Subjective Date of service: 09/13/19 Patient Reports: Positive: no new complaints, feels better, pain is less, tolerating a regular diet, flatus, bowel movement. Negative: nausea, vomiting Objective Vital Signs - 12hr 09/13/19 05:34 Temperature 98.5 F Pulse Rate 90 Respiratory 18 Rate Blood Pressure 123/57 O2 Sat by Pulse 95 Oximetry - General physical appearance no distress, no pain, obese, other (looks better. moving easier) - Eyes normal occular movement - Respiratory normal expansion, normal respiratory effort - Abdomen soft, not tender, not distended, not guarding, not rigid - Integumentary no rash, no growths, no abnormal pigmentation - Psychiatric oriented to time, oriented to person, oriented to place, speech is normal, memory intact - Labs 09/13/19 08:17 09/12/19 04:57
[2019-09-13] MEDS: cefTRIAXone/NS 2 GM/100 ML 2 GM/100 ML BAG IV SCH (14:44)
[2019-09-14] MEDS: SODIUM CHLORIDE 0.9% 1000 ML 1,000 ML IV SCH (01:56)
[2019-09-14] MEDS: metroNIDAZOLE/NS 500 MG/100 ML 500 MG/100 ML BAG IV SCH (05:35)
[2019-09-14 06:19] LABS: Hematocrit 31.2 % (30.3-42.9); Hemoglobin 10.1 gm/dl (10.1-14.3); Mean Corpuscular HGB Conc 33 % (30-34); Mean Corpuscular Volume 84 fl (79-97); Platelet Count 266 K/mm3 (140-440); Red Cell Distribution Width 14.9 % (13.2-15.2)
[2019-09-14 06:37] LABS: BUN/Creatinine Ratio 6; Blood Urea Nitrogen 5 mg/dL (7-17); Calcium 8.4 mg/dL (8.4-10.2)
[2019-09-14 06:44] VITALS: BP 106/52
[2019-09-14] MEDS: cefTRIAXone/NS 2 GM/100 ML 2 GM/100 ML BAG IV SCH (09:54)
[2019-09-14] MEDS: SENNOSIDES 8.6 MG TAB PO SCH (09:54)
--- NOTE | 2019-09-14 09:59 | Discharge Summary ---
Providers - Providers Date of Admission: 09/11/19 04:39 Attending physician: KATHY JEWELL MD 09/11/19 04:54 Consult to Physician [CONS] Routine Comment: Consulting Provider: STEFANIA RAMIRES Physician Instructions: Reason For Exam: diverticulitis 09/11/19 11:43 Consult to Physician [CONS] Routine Comment: Consulting Provider: MARCIANO VALENTINE Physician Instructions: Reason For Exam: PELVIC ABSCESS 09/11/19 13:37 Consult to Interventional Radiology [CONS] Urgent Consulting Provider: KENNETH KNOWLES Reason For Exam: pelvic abscess-eval for drainage Notified:: Dr. Palm 09/12/19 08:48 Consult to Physician [CONS] Routine Comment: Consulting Provider: KRYSTYNA VILLARREAL Physician Instructions: Reason For Exam: spesis Primary care physician: RIB BENDER Hospitalization Reason for admission: diverticulitis Condition: Stable Hospital course: 44-year-old -[place] female with known history of coronary artery disease, hypertension, CHF and obesity presenting to the emergency room today complaining of constipation and abdominal pain. Patient indicates that she has not had a bowel movement in 2 to 3 days. She passed a few pellets of hard stool yesterday and still feels constipated. She took some Dulcolax without any improvement. She has since been having abdominal pain which was initially gener alized but now more in the lower abdomen. She denies any fever or chills, she has some nausea but no vomiting and no diarrhea, no hematuria or dysuria, no bright red blood per rectum, denies any chest pain or shortness of breath, no headache or dizziness. Patient denies any sick contacts and no recent travel. She has had total abdominal hysterectomy in the past. Work-up in the emergency room reveals significant leukocytosis on the labs, CT of the abdomen and pelvis suspicious for pelvic abscess versus diverticulitis. Attempt to drain by IR although returned small amount of blood with no abscess noted. 09/11: Patient tolerating diet today reports gas but no bowel movement yet. 09/12: GI input noted, no new fever, start with Dulculax suppository anticipate discharge in am. ID to see and recommend mets. 09/13: clinically stable for discharge Diverticulitis large intestine Patient has been placed on empiric IV antibiotics. We also placed on analgesic medication. Advance diet per GI recommendation outpatient colonoscopy in 6 to [address] abdomen finding, ?Hematoma HTN (hypertension) Current Visit: No Status: Chronic Plan to address problem: Blood pressure stable. We will resume routine home medication monitor vital signs closely. Obesity, morbid, BMI 40.0-49.9 Current Visit: No Status: Acute Plan to address problem: Patient has a BMI of 42.2 Request dietary consult prior to discharge. Sepsis Patient with fever overnight. Will obtain ID consultation to assist with management. Continue to follow cultures. Anticipate discharge in 24 to 48 hours if patient is fever free based on recommendation of following additional specialist. Plan of care discussed with the patient also discussed with surgeon. Disposition: - TO HOME OR SELFCARE Time spent for discharge: 35 mins Core Measure Documentation - Palliative Care Palliative Care/ Comfort Measures: Not Applicable - Core Measures Any of the following diagnoses?: none Exam - Physical Exam Narrative exam: VITAL SIGNS: Reviewed. GENERAL: The patient appears normally developed, obese vital signs as do cumented. HEAD: No signs of head trauma. EYES: Pupils are equal. Extraocular motions intact. EARS: Hearing grossly intact. MOUTH: Oropharynx is normal. NECK: No adenopathy, no JVD. CHEST: Chest with clear breath sounds bilaterally. No wheezes, rales, or rhonchi. CARDIAC: Regular rate and rhythm. S1 and S2, without murmurs, gallops, or rubs. VASCULAR: No Edema. Peripheral pulses normal and equal in all extremities. ABDOMEN: Soft, non tender and non distended. No rebound or guarding, and no masses palpated. Bowel Sounds normal. MUSCULOSKELETAL: Good range of motion of all major joints. Extremities without clubbing, cyanosis or edema. NEUROLOGIC EXAM: Alert and oriented x 3 No focal sensory or strength deficits. Speech normal. Follows commands. PSYCHIATRIC: Mood normal. SKIN: detial exam as documented in skin assessment - Constitutional Vitals: Temp Pulse Resp BP Pulse Ox 98.2 F 94 H 18 106/52 95 09/14/19 06:15 09/14/19 06:15 09/14/19 06:15 09/14/19 06:15 09/14/19 07:38 Plan Activity: advance as tolerated, fall precautions Diet: low fat, advance as tolerated, other (high fiber) Special Instructions: record daily weights, record daily BP diary Follow up with: PRIMARY CAREMD [Primary Care Provider] - 3-5 Days KRYSTYNA VILLARREAL MD [Staff Physician] - 7 Days JALYN KEY MD [Staff Physician] - 7 Days MICHAEL DÍAZ MD [Staff Physician] - 7 Days Prescriptions: Amoxicillin/Potassium Clav [Augmentin 875-125 Tablet] 1 each PO BID #20 tablet Psyllium Seed (with Sugar) [Metamucil] 1 each PO TID #30 packet Sennosides Tab [Senokot] 8.6 mg PO Q12H #30 tablet
--- NOTE | 2019-10-13 13:45 | Cat Scan Report ---
Exam: CT-guided aspiration of pelvic fluid collection Clinical indication: Patient with a history of abdominal pain and constipation. CT was noted to have a fluid collection. Patient has a history of hysterectomy done from a transvaginal approach. Date: 09/10/2000 Procedure: Following inflammation of the risks, benefits and alternatives; written informed consent was obtained. Patient was brought to the CT suite and placed in supine position on entry. Initial maintenance of way superintendent images were performed an appropriate access site was chosen in the left lower quadrant. Patient's abdomen was prepped draped in usual sterile fashion. 1% lidocaine was used for anesthesia. In intermittent CT guidance, a 15 cm 18-gauge trocar needle was advanced into the fluid collection in the low pelvis. There appears to be some degree of septations. A serous fluid only was aspirated. No suggestion of purulent fluid was identified. A 0.035 guidewire was then advanced however would not coil passed a septation. Therefore a different access site was chosen for fluid collection. A second access site was chosen left lower quadrant. Following initial maintenance of way superintendent images, the patient was prepped and draped in usual sterile fashion. An additional 1% lidocaine was used for anesthesia. Using intermittent CT guidance, a 15 to measure 18-gauge trocar needle was advanced into the fluid and air collection is thick walled in the left lower quadrant. This communicates with the previously noted fluid collection. With the needle tip in the central aspect of the fluid and air collection, aspiration was performed. No significant drainage was identified. At this point, the needles were removed and hemostasis achieved at the skin surface using manual compression. A sterile dressing was applied at both sites. The patient tolerated the procedure well. There were no immediate post procedure complications. Moderate sedation was performed under the guidance of radiologic nursing. Continuous cardiopulmonary monitoring) Impression: 1) CT guided aspiration of a septated fluid collection in the lower left quadrant of the pelvis and an air and fluid collection which communicates with the septated fluid collection slightly superior in the left lower quadrant. A sample of serous fluid was aspirated from the lower fluid collection. Samples were sent for laboratory analysis. Based on the appearance of the fluid and the collections, this does not appear to be a diverticular abscess. Would recommend further evaluation.
== END 2019-09-14 11:59 | disposition home or self-care (01) | DRG 872 ==
LOC: ED 19:00 → IMCU 09-11 04:39
PROVIDERS: ADMIT Internal Medicine Geriatric Medicine; ATTEND Internal Medicine
DX: A41.9 Sepsis, unspecified organism (principal); K57.32 Diverticulitis of large intestine without perforation or abscess without bleeding; Z68.41 Body mass index [BMI] 40.0-44.9, adult; I25.10 Atherosclerotic heart disease of native coronary artery without angina pectoris; I11.0 Hypertensive heart disease with heart failure; I50.9 Heart failure, unspecified; D64.9 Anemia, unspecified; G43.909 Migraine, unspecified, not intractable, without status migrainosus; E66.01 Morbid (severe) obesity due to excess calories; E87.6 Hypokalemia; Z90.710 Acquired absence of both cervix and uterus; Z95.810 Presence of automatic (implantable) cardiac defibrillator
CPT/HCPCS: 10160; 36415; 74018; 74177; 77012; 80048; 80053; 81001; 81025; 82140; 83690; 85007; 85025; 85027; 85610; 87040; 87076; 87086; 87116; 87186; G0378; C1769; J0696; J1956; J2250; J2270; J2405; J2543; J3010; J7030; Q9967

== ENCOUNTER 2019-12-22 13:56 | Emergency (ER) | payer MEDICARE, OTHER ==
--- NOTE | 2019-12-22 15:35 | XRay Report ---
CHEST 2 VIEWS INDICATION / CLINICAL INFORMATION: chest pain. COMPARISON: Chest x-ray on 10/09/2019 FINDINGS: SUPPORT DEVICES: Stable position of cardiac ICD. HEART / MEDIASTINUM: Stable cardiomegaly. LUNGS / PLEURA: No significant pulmonary or pleural abnormality. No pneumothorax. ADDITIONAL FINDINGS: No significant additional findings. IMPRESSION: 1. No acute findings. Signer Name: Alan Su MD Signed: 12/22/2019 3:30 PM Workstation Name: [id number]
[2019-12-22 16:07] LABS: Basophils # (Auto) 0.1 K/mm3 (0.0-0.1); Basophils % (Auto) 0.6 % (0.0-1.8); Eosinophils % (Auto) 0.4 % (0.0-4.3); Hematocrit 37.9 % (30.3-42.9); Hemoglobin 11.9 gm/dl (10.1-14.3); Lymphocytes % (Auto) 22.5 % (13.4-35.0); Mean Corpuscular HGB Conc 31 % (30-34); Mean Corpuscular Volume 87 fl (79-97); Monocytes # (Auto) 0.9 K/mm3 (0.0-0.8); Monocytes % (Auto) 9.8 % (0.0-7.3); Platelet Count 286 K/mm3 (140-440); Red Blood Count 4.38 M/mm3 (3.65-5.03)
[2019-12-22 16:08] LABS: Red Cell Distribution Width 20.4 % (13.2-15.2)
[2019-12-22 16:26] LABS: Alanine Aminotransferase 28 units/L (7-56); Albumin 3.3 g/dL (3.9-5); BUN/Creatinine Ratio 18; Blood Urea Nitrogen 20 mg/dL (7-17); Calcium 9.2 mg/dL (8.4-10.2); Hemolysis Index 1
--- NOTE | 2019-12-22 17:02 | Emergency Department Report ---
ED Abdominal Pain HPI - General Chief Complaint: Abdominal Pain Stated Complaint: CHEST PAIN, BLEEDING FROM RECTAL Time Seen by Provider: 12/22/19 16:25 Source: patient Mode of arrival: Ambulatory Limitations: No Limitations - History of Present Illness Initial Comments: 44-year-old female with a past medical history CAD, hypertension, CHF with a EF of 20 to 25%, AICD placement, hysterectomy in 2016 and diverticulitis/pelvic abscess diagnosed in August 2019 presents to the hospital complaining of abdominal pain for 3 to 4 days and constipation x1 week patient. Patient is only able to pass a small amount of stool with her bowel movements. The last 3 to 4 days she has noticed a small amount of blood in the toilet and when she wipes her anal area. She denies melena, or hematochezia. Patient complains of feeling very full with eating which causes discomfort in her chest. She has had one episode of vomiting has decreased appetite. She denies fever or dysuria but thinks she has abnormal vaginal discharge as well As per medical record review patient admitted here in September and had a negative stress test October 10, 2019. During her admission at the end of August she presented with constipation and abdominal pain without fever or chills. She is noted to have a leukocytosis on her labs. CT revealed a pelvic abscess versus diverticulitis. Drainage was attempted by IR with return of a small of blood but no abscess noted. There is also a question as to whether a fistula was present as result of previous hysterectomy. patient was treated with antibiotics and Dulcolax suppositories. Outpatient colonoscopy was recommended in 6 to 8 weeks - Related Data Previous Rx's Medication Instructions Recorded Last Taken Type Aspirin EC [Halfprin EC] 81 mg PO QDAY #30 tablet. 09/06/16 10/09/19 Rx Furosemide [Lasix TAB] 40 mg PO QDAY #30 tablet 04/02/19 10/09/19 Rx AtorvaSTATin [Lipitor] 40 mg PO QHS #30 tab 10/12/19 Unknown Rx Losartan [Cozaar] 25 mg PO QDAY #30 tablet 10/12/19 Unknown Rx Metoprolol [Lopressor TAB] 12.5 mg PO BID #60 tablet 10/12/19 Unknown Rx Spironolactone [Aldactone] 25 mg PO QDAY #30 tablet 10/12/19 Unknown Rx Docusate Sodium [Colace] 100 mg PO BID PRN #20 capsule 12/22/19 Unknown Rx Allergies Allergy/AdvReac Type Severity Reaction Status Date / Time No Known Allergies Allergy Verified 03/30/19 17:44 ED Review of Systems ROS: Stated complaint: CHEST PAIN, BLEEDING FROM RECTAL Other details as noted in HPI Comment: All other systems reviewed and negative ED Past Medical Hx - Past Medical History Hx Hypertension: Yes Hx Heart Attack/AMI: No Hx Congestive Heart Failure: Yes Hx Diabetes: No Hx Sickle Cell Disease: No Hx Headaches / Migraines: Yes (occasional migraines) Hx Asthma: No Hx COPD: No Hx HIV: No Additional medical history: anemia - Surgical History Hx Internal Defibrillator: Yes Additional Surgical History: Hysterectomy - Social History Smoking Status: Never Smoker - Medications Home Medications: Home Medications Medication Instructions Recorded Confirmed Last Taken Type Aspirin EC [Halfprin EC] 81 mg PO QDAY #30 tablet. 09/06/16 10/09/19 10/09/19 Rx Furosemide [Lasix TAB] 40 mg PO QDAY #30 tablet 04/02/19 10/09/19 10/09/19 Rx AtorvaSTATin [Lipitor] 40 mg PO QHS #30 tab 10/12/19 Unknown Rx Losartan [Cozaar] 25 mg PO QDAY #30 tablet 10/12/19 Unknown Rx Metoprolol [Lopressor TAB] 12.5 mg PO BID #60 tablet 10/12/19 Unknown Rx Spironolactone [Aldactone] 25 mg PO QDAY #30 tablet 10/12/19 Unknown Rx Docusate Sodium [Colace] 100 mg PO BID PRN #20 capsule 12/22/19 Unknown Rx ED Physical Exam - General Limitations: No Limitations - Other Other exam information: General: No acute distress Head: Atraumatic Eyes: normal appearance ENT: Moist mucous membranes Neck: Normal appearance, no midline tenderness Chest: Clear to auscultation bilaterally CV: Regular rate and rhythm Abdomen: Soft, normal bowel sounds, tenderness in the left lower quadrant, sup rapubic, right lower quad, nondistended, no rebound or guarding Rectal: Brown stool without gross blood there is a lot of brownish-pinkish discharge from the vagina is also around the rectal area which could have contaminated guaiac sample which was faintly positive after developer was placed : Brownish-pinkish vaginal discharge with tenderness and fullness in the right vaginal vault Back: Normal inspection Extremity: Normal inspection, full range of motion Neuro: Alert O x 3, no facial asymmetry, speech clear, no gross motor sensory deficit Psych: Appropriate behavior Skin: No rash ED Course Vital Signs 12/22/19 12/22/19 14:01 20:33 Temperature 97.5 F L 98.8 F Pulse Rate 109 H 96 H Respiratory 18 14 Rate Blood Pressure 149/84 138/91 O2 Sat by Pulse 95 95 Oximetry - Consultations Consultation #1: 12/22/19 20:[address] Goodman who states that patient is not in need emergent intervention. Patient ultimately need outpatient evaluation with [facility] and colorectal surgery as well as further work-up and possible MRI as an outpatient. ED Medical Decision Making - Lab Data Result diagrams: 12/22/19 15:50 12/22/19 15:50 Lab Results 12/22/19 12/22/19 12/22/19 Range/Units 15:50 15:50 15:50 WBC 8.7 (4.5-11.0) K/mm3 RBC 4.38 (3.65-5.03) M/mm3 Hgb 11.9 (10.1-14.3) gm/dl Hct 37.9 (30.3-42.9) % MCV 87 (79-97) fl MCH 27 L (28-32) pg MCHC 31 (30-34) % RDW 20.4 H (13.2-15.2) % Plt Count 286 (140-440) K/mm3 Lymph % (Auto) 22.5 (13.4-35.0) % [place] % (Auto) 9.8 H (0.0-7.3) % Eos % (Auto) 0.4 (0.0-4.3) % Baso % (Auto) 0.6 (0.0-1.8) % Lymph # 2.0 (1.2-5.4) K/mm3 [place] # 0.9 H (0.0-0.8) K/mm3 Eos # 0.0 (0.0-0.4) K/mm3 Baso # 0.1 (0.0-0.1) K/mm3 Seg Neutrophils % 66.7 (40.0-70.0) % Seg Neutrophils # 5.8 (1.8-7.7) K/mm3 Sodium 138 (137-145) mmol/L Potassium 4.5 (3.6-5.0) mmol/L Chloride 100.8 (98-107) mmol/L Carbon Dioxide 24 (22-30) mmol/L Anion Gap 18 mmol/L BUN 20 H (7-17) mg/dL Creatinine 1.1 (0.6-1.2) mg/dL Estimated GFR > 60 ml/min BUN/Creatinine Ratio 18 % Glucose 116 H (65-100) mg/dL Calcium 9.2 (8.4-10.2) mg/dL Magnesium (1.7-2.3) mg/dL Total Bilirubin 1.20 (0.1-1.2) mg/dL AST 29 (5-40) units/L ALT 28 (7-56) units/L Alkaline Phosphatase 179 H (35-129) units/L Troponin T < 0.010 (0.00-0.029) ng/mL Total Protein 8.0 (6.3-8.2) g/dL Albumin 3.3 L (3.9-5) g/dL Albumin/Globulin Ratio 0.7 % Lipase 44 (13-60) units/L Urine Color (Yellow) Urine Turbidity (Clear) Urine pH (5.0-7.0) Ur Specific [place] (1.003-1.030) Urine Protein (Negative) mg/dL Urine Glucose (UA) (Negative) mg/dL Urine Ketones (Negative) mg/dL Urine Blood (Negative) Urine Nitrite (Negative) Urine Bilirubin (Negative) Urine Urobilinogen (<2.0) mg/dL Ur Leukocyte Esterase (Negative) Urine WBC (Auto) (0.0-6.0) /HPF Urine RBC (Auto) (0.0-6.0) /HPF U Epithel Cells (Auto) (0-13.0) /HPF Urine Mucus /HPF 12/22/19 12/22/19 Range/Units 15:50 17:05 WBC (4.5-11.0) K/mm3 RBC (3.65-5.03) M/mm3 Hgb (10.1-14.3) gm/dl Hct (30.3-42.9) % MCV (79-97) fl MCH (28-32) pg MCHC (30-34) % RDW (13.2-15.2) % Plt Count (140-440) K/mm3 Lymph % (Auto) (13.4-35.0) % [place] % (Auto) (0.0-7.3) % Eos % (Auto) (0.0-4.3) % Baso % (Auto) (0.0-1.8) % Lymph # (1.2-5.4) K/mm3 [place] # (0.0-0.8) K/mm3 Eos # (0.0-0.4) K/mm3 Baso # (0.0-0.1) K/mm3 Seg Neutrophils % (40.0-70.0) % Seg Neutrophils # (1.8-7.7) K/mm3 Sodium (137-145) mmol/L Potassium (3.6-5.0) mmol/L Chloride (98-107) mmol/L Carbon Dioxide (22-30) mmol/L Anion Gap mmol/L BUN (7-17) mg/dL Creatinine (0.6-1.2) mg/dL Estimated GFR ml/min BUN/Creatinine Ratio % Glucose (65-100) mg/dL Calcium (8.4-10.2) mg/dL Magnesium 2.10 (1.7-2.3) mg/dL Total Bilirubin (0.1-1.2) mg/dL AST (5-40) units/L ALT (7-56) units/L Alkaline Phosphatase (35-129) units/L Troponin T (0.00-0.029) ng/mL Total Protein (6.3-8.2) g/dL Albumin (3.9-5) g/dL Albumin/Globulin Ratio % Lipase (13-60) units/L Urine Color Georgette (Yellow) Urine Turbidity Clear (Clear) Urine pH 5.0 (5.0-7.0) Ur Specific [place] 1.024 (1.003-1.030) Urine Protein >500 (Negative) mg/dL Urine Glucose (UA) Neg (Negative) mg/dL Urine Ketones Neg (Negative) mg/dL Urine Blood Mod (Negative) Urine Nitrite Neg (Negative) Urine Bilirubin Neg (Negative) Urine Urobilinogen 4.0 (<2.0) mg/dL Ur Leukocyte Esterase Tr (Negative) Urine WBC (Auto) 8.0 H (0.0-6.0) /HPF Urine RBC (Auto) 11.0 (0.0-6.0) /HPF U Epithel Cells (Auto) < 1.0 (0-13.0) /HPF Urine Mucus 1+ /HPF - EKG Data -: EKG Interpreted by Me (Multifocal PVCs) EKG shows normal: sinus rhythm, ST-T waves (No STEMI) Rate: tachycardia (104) - Radiology Data Radiology results: report reviewed CT abdomen pelvis w con INDICATION: abd pain, constipation, blood stool, hx of abscess. COMPARISON: 09/11/2019 TECHNIQUE: Abdominal and pelvic CT exam performed. All CT scans at this location are performed using CT dose reduction for ALARA by means of automated exposure control. FINDINGS: CT ABDOMEN and PELVIS: Lung Bases: There are groundglass opacities seen within the lung bases with more consolidative appearance seen within the posterior basal segment right lower lobe. Heart is enlarged. Liver: Diffuse hypoattenuation of the liver. Biliary: No significant abnormality. Spleen: No significant abnormality. Pancreas: No significant abnormality. Adrenals: No significant abnormality. Kidneys: No significant abnormality. Lymphatics: Mildly prominent lymph nodes are most likely reactive in etiology. Vasculature: No significant abnormality. Bowel/Peritoneum: Sigmoid colonic diverticulosis. Persistent but decreased left pelvic peripheral enhancing collection now measuring approximately 4 x 3 cm on image 146 of series 2. There is a soft tissue tract extending to the vaginal cuff and rectosigmoid junction of the bladder which contains air as seen on sagittal image 95 of series 602 and axial image 78-80 of series 4. Appendix is normal. Pelvis: See above. Osseous Structures: No aggressive osseous lesion. Additional Findings: Small volume of ascites. IMPRESSION: 1. Persistent but smaller left pelvic sidewall abscess. There is a soft tissue t ract extending to the area of the vaginal cuff and the rectosigmoid junction.This tract contains a small quantity of air which is concerning for a fistula with one of these structures.. - Medical Decision Making Patient symptoms and CT suggestive of rectovaginal fistula with improving pelvic collection which likely represents residual hematoma given lack of purulent material obtained on previous IR drainage attempt several months ago. Patient is not exhibiting signs or symptoms of acute infection and lacks fever. Case discussed with on-call surgeon DR Goodman who does not recommend antibiotics or admission at this time but suggests outpatient work-up. Patient will be provided oral constipation medications and outpatient referrals for [facility] and colorectal surgery. We do not have a colorectal surgeon on staff here and therefore [place] contact will be provided Critical Care Time: No Critical care attestation.: If time is entered above; I have spent that time in minutes in the direct care of this critically ill patient, excluding procedure time. ED Disposition Clinical Impression: Recto-vaginal fistula, Pelvic fluid collection, Constipation Disposition: TO HOME OR SELFCARE Is pt being admited?: No Condition: Stable Instructions: Constipation (ED) Additional Instructions: Take the medication as prescribed. It is important that you follow-up with the [facility] doctor and colorectal surgeon for further work-up and treatment of your suspected rectovaginal fistula. Rectovaginal fistulous communication between the rectum and your vagina. The discharge in your vagina likely represents stool from your GI tract. Return if symptoms worsen as indicated by your discharge instructions. If you develop fever or worsening pain please return for more emergent evaluation. Prescriptions: Docusate Sodium [Colace] 100 mg PO BID PRN #20 capsule PRN Reason: Constipation Referrals: [place], colorectal surgeon [Other] - 3-5 Days (Call the [facility] number to schedule an appointment with a colorectal surgeon [phone]) DANYELL NUNEZ MD [Staff Physician] - 3-5 Days ([facility] doctor) Time of Disposition: 21:02
[2019-12-22] MEDS ORDERED: ONDANSETRON 4 MG/2 ML INJ IV ONE (17:46)
[2019-12-22 17:47] LABS: Bilirubin,Urine NEG (Negative); Blood,Urine MOD (Negative); Color,Urine Amber (Yellow); Mucus,Urine 1+ /HPF
[2019-12-22 17:50] LABS: Protein,Urine >500 mg/dL (Negative)
--- NOTE | 2019-12-22 20:04 | Cat Scan Report ---
CT abdomen pelvis w con INDICATION: abd pain, constipation, blood stool, hx of abscess. COMPARISON: 09/11/2019 TECHNIQUE: Abdominal and pelvic CT exam performed. All CT scans at this location are performed using CT dose reduction for ALARA by means of automated exposure control. FINDINGS: CT ABDOMEN and PELVIS: Lung Bases: There are groundglass opacities seen within the lung bases with more consolidative appear ance seen within the posterior basal segment right lower lobe. Heart is enlarged. Liver: Diffuse hypoattenuation of the liver. Biliary: No significant abnormality. Spleen: No significant abnormality. Pancreas: No significant abnormality. Adrenals: No significant abnormality. Kidneys: No significant abnormality. Lymphatics: Mildly prominent lymph nodes are most likely reactive in etiology. Vasculature: No significant abnormality. Bowel/Peritoneum: Sigmoid colonic diverticulosis. Persistent but decreased left pelvic peripheral enh ancing collection now measuring approximately 4 x 3 cm on image 146 of series 2. There is a soft tiss ue tract extending to the vaginal cuff and rectosigmoid junction of the bladder which contains air as seen on sagittal image 95 of series 602 and axial image 78-80 of series 4. Appendix is normal. Pelvis: See above. Osseous Structures: No aggressive osseous lesion. Additional Findings: Small volume of ascites. IMPRESSION: 1. Persistent but smaller left pelvic sidewall abscess. There is a soft tissue tract extending to the area of the vaginal cuff and the rectosigmoid junction.This tract contains a small quantity of air w hich is concerning for a fistula with one of these structures.. Signer Name: Wally Stallworth MD Signed: 12/22/2019 8:00 PM Workstation Name: [id number]
[2019-12-22 20:34] VITALS: BP 138/91
== END 2019-12-22 21:10 | disposition home or self-care (01) ==
LOC: ED 13:56
DX: N82.3 Fistula of vagina to large intestine (principal); K59.00 Constipation, unspecified; I11.0 Hypertensive heart disease with heart failure; I50.9 Heart failure, unspecified; G43.909 Migraine, unspecified, not intractable, without status migrainosus; Z86.2 Personal history of diseases of the blood and blood-forming organs and certain disorders involving the immune mechanism; Z90.710 Acquired absence of both cervix and uterus; Z79.899 Other long term (current) drug therapy
CPT/HCPCS: 36415; 71046; 74177; 80053; 81001; 82271; 83690; 83735; 84484; 85025; 87210; 87591; 93005; 96374; 99285; J2405; Q9967

== ENCOUNTER 2020-01-31 07:06 | Emergency (ER) | payer MEDICARE, OTHER ==
[2020-01-31 07:49] LABS: Basophils % (Auto) 0.5 % (0.0-1.8); Eosinophils # (Auto) 0.1 K/mm3 (0.0-0.4); Eosinophils % (Auto) 1.2 % (0.0-4.3); Hematocrit 42.1 % (30.3-42.9); Hemoglobin 13.4 gm/dl (10.1-14.3); Lymphocytes % (Auto) 33.4 % (13.4-35.0); Mean Corpuscular HGB Conc 32 % (30-34); Mean Corpuscular Volume 87 fl (79-97); Monocytes # (Auto) 0.7 K/mm3 (0.0-0.8); Monocytes % (Auto) 12.5 % (0.0-7.3); Platelet Count 233 K/mm3 (140-440); Red Blood Count 4.81 M/mm3 (3.65-5.03)
[2020-01-31 08:14] LABS: Albumin 3.2 g/dL (3.9-5); Calcium 8.8 mg/dL (8.4-10.2)
[2020-01-31 08:20] LABS: Red Cell Distribution Width 21.2 % (13.2-15.2)
--- NOTE | 2020-01-31 09:38 | Emergency Department Report ---
HPI - General Chief Complaint: Arrhythmia/Palpitations Time Seen by Provider: 01/31/20 09:22 - HPI HPI: Room 1 The patient is a 44-year-old female present with a chief complaint of chest pain abdominal pain. The patient states she has noticed stool coming from her vagina for the past month. Patient states for the past week she has had pain in the lo wer abdomen. Patient states last night she developed substernal chest pain that was sharp and constant in nature associated with shortness of breath nausea and vomiting. Patient denies diaphoresis. Patient admits to cough for the past 2 to 3 days occasionally productive of white sputum. Patient denies history of fever. Patient denies known contact with Covid positive patients. Patient currently gives her chest pain a score of 10/10. Patient states she's never had a cardiac catheterization ED Past Medical Hx - Past Medical History Hx Hypertension: Yes Hx Congestive Heart Failure: Yes Hx Headaches / Migraines: Yes (occasional migraines) Additional medical history: anemia - Surgical History Hx Internal Defibrillator: Yes Additional Surgical History: Hysterectomy - Family History Family history: no significant - Social History Smoking Status: Never Smoker Substance Use Type: None (Denies illicit drug use) - Medications Home Medications: Home Medications Medication Instructions Recorded Confirmed Last Taken Type Aspirin EC [Halfprin EC] 81 mg PO QDAY #30 tablet. 09/06/16 10/09/19 10/09/19 Rx Furosemide [Lasix TAB] 40 mg PO QDAY #30 tablet 04/02/19 10/09/19 10/09/19 Rx AtorvaSTATin [Lipitor] 40 mg PO QHS #30 tab 10/12/19 Unknown Rx Losartan [Cozaar] 25 mg PO QDAY #30 tablet 10/12/19 Unknown Rx Metoprolol [Lopressor TAB] 12.5 mg PO BID #60 tablet 10/12/19 Unknown Rx Spironolactone [Aldactone] 25 mg PO QDAY #30 tablet 10/12/19 Unknown Rx Docusate Sodium [Colace] 100 mg PO BID PRN #20 capsule 12/22/19 Unknown Rx ED Review of Systems ROS: Stated complaint: vagina popping out/heat beating fast Other details as noted in HPI Constitutional: denies: diaphoresis, fever Respiratory: cough, shortness of breath Cardiovascular: chest pain Endocrine: no symptoms reported Gastrointestinal: nausea, vomiting Genitourinary: other (Passing stool from vagina) Physical Exam - Physical Exam Vital Signs: Vital Signs 01/31/20 07:13 Temperature 97.5 F L Pulse Rate 81 Respiratory 20 Rate Blood Pressure 135/104 O2 Sat by Pulse 98 Oximetry Physical Exam: GENERAL: The patient is well-developed well-nourished female lying on stretcher not appearing to be in acute distress. [] HEENT: Normocephalic. Atraumatic. Extraocular motions are intact. Patient has moist mucous membranes. NECK: Supple. Trachea midline CHEST/LUNGS: Clear to auscultation. There is no respiratory distress noted. HEART/CARDIOVASCULAR: Regular. There is no tachycardia. There is no gallop rub or murmur. ABDOMEN: Abdomen is soft, with mild discomfort to palpation in the right lower quadrant. Patient has normal bowel sounds. There is no abdominal distention. SKIN: There is no rash. There is no edema. There is no diaphoresis. NEURO: The patient is awake, alert, and oriented. The patient is cooperative. The patient has normal speech MUSCULOSKELETAL: There is no evidence of acute injury. ED Course Vital Signs 01/31/20 07:13 Temperature 97.5 F L Pulse Rate 81 Respiratory 20 Rate Blood Pressure 135/104 O2 Sat by Pulse 98 Oximetry ED Medical Decision Making - Lab Data Result diagrams: 01/31/20 07:23 01/31/20 07:23 Laboratory Tests 01/31/20 01/31/20 01/31/20 07:23 07:23 07:23 WBC 5.9 RBC 4.81 Hgb 13.4 Hct 42.1 MCV 87 MCH 28 MCHC 32 RDW 21.2 H Plt Count 233 Lymph % (Auto) 33.4 [place] % (Auto) 12.5 H Eos % (Auto) 1.2 Baso % (Auto) 0.5 Lymph # (Auto) 2.0 [place] # (Auto) 0.7 Eos # (Auto) 0.1 Baso # (Auto) 0.0 Seg Neutrophils % 52.4 Seg Neutrophils # 3.1 Sodium 138 Potassium 3.7 Chloride 98.9 Carbon Dioxide 26 Anion Gap 17 BUN 16 Creatinine 1.2 Estimated GFR 59 BUN/Creatinine Ratio 13 Glucose 94 Calcium 8.8 Total Bilirubin 1.30 H AST 40 ALT 27 Alkaline Phosphatase 213 H Troponin T 0.136 H* NT-Pro-B Natriuret Pep 2400 H Total Protein 7.7 Albumin 3.2 L Albumin/Globulin Ratio 0.7 - EKG Data -: EKG Interpreted by Me EKG shows normal: sinus rhythm Rate: tachycardia (107 bpm) - EKG Data When compared to previous EKG there are: previous EKG unavailable Interpretation: nonspecific ST-T wave new, other (Frequent PVCs) - Radiology Data Radiology results: report reviewed (CT abdomen pelvis), image reviewed (CT abdomen pelvis, chest x-ray) interpreted by me: Chest [id number], no pneumothorax. No foreign body seen [facility] [address] [place] [address] Cat Scan Report Signed Patient: SARAH JOSEPH MR#: [id number] : 1975 Acct:[id number] Age/Sex: 44 / F ADM Date: 01/31/20 Loc: ED Attending Dr: Ordering Physician: DALIA PENG MD Date of Service: 01/31/20 Procedure(s): CT abdomen pelvis wo con Accession Number(s): [id number] cc: DALIA PENG MD CT ABDOMEN PELVIS WITHOUT CONTRAST INDICATION / CLINICAL INFORMATION: Passing stool from vagina. , TECHNIQUE: Axial CT images were obtained through the abdomen and pelvis without IV contrast. All CT scans at this location are performed using CT dose reduction for ALARA by means of automated exposure control. COMPARISON: 12/22/2019 FINDINGS: Exam is performed without intravenous contrast which limits diagnostic accuracy. Also extensive streak artifacts present in the pelvis which limits diagnostic accuracy as well as artifact from the dense barium in the rectum and sigmoid colon LOWER CHEST: No significant abnormality. Cardiac enlargement LIVER: No significant abnormality. GALLBLADDER: No significant abnormality. BILE DUCTS: No significant abnormality. PANCREAS: No significant abnormality. SPLEEN: No significant abnormality. ADRENALS: No significant abnormality. RIGHT KIDNEY and URETER: No significant abnormality. LEFT KIDNEY and URETER: No significant abnormality. STOMACH and SMALL BOWEL: No significant abnormality. COLON: Rectal contrast was given without evidence of extravasation or fistulous tract into the vagina. Persistent left pelvic sidewall soft tissue mass-abscess without definite communication with the colon. There is diverticulosis sigmoid colon PERITONEUM: Small amount of free fluid is present surrounding the spleen and liver and pericolic gutters. No free air. No fluid collection. LYMPH NODES: No significant adenopathy. AORTA and ARTERIES: No significant abnormality. IVC and VEINS: No significant abnormality. URINARY BLADDER: No significant abnormality. REPRODUCTIVE ORGANS: No significant abnormality ADDITIONAL FINDINGS: None. SKELETAL SYSTEM: No significant abnormality. IMPRESSION: 1. No obvious communication with the vagina after rectal contrast CT was performed 2. Persistent left pelvic sidewall soft tissue mass-abscess without interval change as compared to previous exam 3. Diverticulosis sigmoid colon 4. Free fluid-ascites as noted Comment: Limited diagnostic accuracy as noted Signer Name: Negrito Allison MD Signed: 01/31/2020 11:19 AM Workstation Name: [id number] Transcribed By: EDMUND Dictated By: Negrito Allison MD Electronically Authenticated By: Negrito Allison MD Signed Date/Time: 01/31/20 1119 DD/ 1107 TD/TT: - Differential Diagnosis Rectovaginal fistula, ACS, pericarditis, GERD Critical care attestation.: If time is entered above; I have spent that time in minutes in the direct care of this critically ill patient, excluding procedure time. ED Disposition Clinical Impression: Chest pain, Rectovaginal fistula Disposition: OP ADMIT IP TO THIS HOSP Is pt being admited?: Yes Does the pt Need Aspirin: Yes Condition: Fair Instructions: Chest Pain (ED) Referrals: PRIMARY CARE, [Primary Care Provider] - 3-5 Days Time of Disposition: 11:55 (Hospitalist paged) HEART Score - HEART Score History: Moderately suspicious EKG: Non-specific Age: < 45 Risk factors: 1-2 risk factors Troponin: Troponin T 0.136 ng/mL (0.00-0.029) H* 01/31/20 07:23 Troponin: > 3x normal limit HEART Score: 5
[2020-01-31] MEDS ORDERED: ONDANSETRON 4 MG/2 ML INJ ONE (09:53)
[2020-01-31] MEDS ORDERED: ONDANSETRON 4 MG/2 ML INJ IV ONE (10:05)
--- NOTE | 2020-01-31 11:23 | Cat Scan Report ---
CT ABDOMEN PELVIS WITHOUT CONTRAST INDICATION / CLINICAL INFORMATION: Passing stool from vagina. , TECHNIQUE: Axial CT images were obtained through the abdomen and pelvis without IV contrast. All CT scans at [facility] location are performed using CT dose reduction for ALARA by means of automated exposure control. COMPARISON: 12/22/2019 FINDINGS: Exam is performed without intravenous contrast which limits diagnostic accuracy. Also extensive strea k artifacts present in the pelvis which limits diagnostic accuracy as well as artifact from the dense barium in the rectum and sigmoid colon LOWER CHEST: No significant abnormality. Cardiac enlargement LIVER: No significant abnormality. GALLBLADDER: No significant abnormality. BILE DUCTS: No significant abnormality. PANCREAS: No significant abnormality. SPLEEN: No significant abnormality. ADRENALS: No significant abnormality. RIGHT KIDNEY and URETER: No significant abnormality. LEFT KIDNEY and URETER: No significant abnormality. STOMACH and SMALL BOWEL: No significant abnormality. COLON: Rectal contrast was given without evidence of extravasation or fistulous tract into the vagina . Persistent left pelvic sidewall soft tissue mass-abscess without definite communication with the co avi. There is diverticulosis sigmoid colon PERITONEUM: Small amount of free fluid is present surrounding the spleen and liver and pericolic gutt ers. No free air. No fluid collection. LYMPH NODES: No significant adenopathy. AORTA and ARTERIES: No significant abnormality. IVC and VEINS: No significant abnormality. URINARY BLADDER: No significant abnormality. REPRODUCTIVE ORGANS: No significant abnormality ADDITIONAL FINDINGS: None. SKELETAL SYSTEM: No significant abnormality. IMPRESSION: 1. No obvious communication with the vagina after rectal contrast CT was performed 2. Persistent left pelvic sidewall soft tissue mass-abscess without interval change as compared to pr evious exam 3. Diverticulosis sigmoid colon 4. Free fluid-ascites as noted Comment: Limited diagnostic accuracy as noted Signer Name: Negrito Allison MD Signed: 01/31/2020 11:19 AM Workstation Name: [id number]
--- NOTE | 2020-01-31 12:04 | XRay Report ---
CHEST 1 VIEW INDICATION / CLINICAL INFORMATION: chest pain. COMPARISON: 12/22/2019 FINDINGS: SUPPORT DEVICES: Left-sided pacemaker HEART / MEDIASTINUM: Cardiomegaly LUNGS / PLEURA: No significant pulmonary or pleural abnormality. No pneumothorax. ADDITIONAL FINDINGS: No significant additional findings. IMPRESSION: Cardiomegaly without acute disease or interval change from 12/22/2019 Signer Name: Gabriele Love MD FACRoberta Signed: 01/31/2020 12:00 PM Workstation Name: [id number]
[2020-01-31 12:45] LABS: Bacteria,Urine 4+ /HPF (Negative); Bilirubin,Urine NEG (Negative); Blood,Urine LG (Negative); Mucus,Urine 3+ /HPF; Sperm,Urine 1+ /HPF (NP)
[2020-01-31 12:46] LABS: Protein,Urine >500 mg/dL (Negative); WBC,Urine > 182.0 /HPF (0.0-6.0)
[2020-01-31 12:47] LABS: Color,Urine Amber (Yellow)
[2020-01-31] MEDS ORDERED: ONDANSETRON 4 MG/2 ML INJ IV PRN (12:54)
[2020-01-31] MEDS ORDERED: ALBUTEROL 2.5 MG/3 ML NEBU IH PRN (12:54)
[2020-01-31] MEDS ORDERED: ACETAMINOPHEN 325 MG TAB PO PRN (12:54)
--- NOTE | 2020-01-31 12:57 | History and Physical Report ---
History of Present Illness Chief complaint: I am Hurting History of present illness: 44 YO Female with Obesity Hypoventilation Syndrome, Anemia, Migraine BAILEY, CHF, Anemia of Chronic Disease presents to ED for evaluation. Patient states that she has experienced stool coming from her vagina over the past month as well as chest pain. Patient states that pain is 510/10, intermittent, not worsened with exertion, not relieved with rest. Patient knowledges decreased exercise tolerance. Patient denies medication noncompliance. Patient transported to [facility] via private vehicle for further care and evaluation. Patient seen and evaluated in the emergency department. Lab and imaging studies reviewed. CT scan of the abdomen and pelvis did not reveal evidence of colovaginal fistula. Patient records reviewed and previous evaluation the patient was instructed to seek outpatient care with gastroenterology and [facility] [employer] [facility]PERATIONS [facility]NA[facility] services. Patient denies outpatient follow-up with the aforementioned services. Patient found to have symptoms consistent with exacerbation of congestive heart failure. Patient admitted to telemetry. Cardiology team consulted. Patient denies fever, chill, chest pain, palpitation, productive cough, skin rash, recent ill contacts, or known exposure to COVID-19. Prior admission on 10/09/2019 reviewed. All medication listed at time of admission has been reconciled. Past History Past Medical History: anemia, heart failure, migraines Past Surgical History: hysterectomy Social history: . denies: smoking, alcohol abuse Family history: hypertension Medications and Allergies Allergies Allergy/AdvReac Type Severity Reaction Status Date / Time No Known Allergies Allergy Verified 01/31/20 07:08 Home Medications Medication Instructions Recorded Confirmed Last Taken Type Aspirin EC [Halfprin EC] 81 mg PO QDAY #30 tablet. 09/06/16 10/09/19 10/09/19 Rx Furosemide [Lasix TAB] 40 mg PO QDAY #30 tablet 04/02/19 10/09/19 10/09/19 Rx AtorvaSTATin [Lipitor] 40 mg PO QHS #30 tab 10/12/19 Unknown Rx Losartan [Cozaar] 25 mg PO QDAY #30 tablet 10/12/19 Unknown Rx Metoprolol [Lopressor TAB] 12.5 mg PO BID #60 tablet 10/12/19 Unknown Rx Spironolactone [Aldactone] 25 mg PO QDAY #30 tablet 10/12/19 Unknown Rx Docusate Sodium [Colace] 100 mg PO BID PRN #20 capsule 12/22/19 Unknown Rx Active Meds: Active Medications Acetaminophen (Tylenol) 650 mg PO Q4H PRN PRN Reason: Pain MILD(1-3)/Fever >100.5/BAILEY Albuterol (Proventil) 2.5 mg IH Q4HRT PRN PRN Reason: Shortness Of Breath Ondansetron HCl (Zofran) 4 mg IV Q8H PRN PRN Reason: Nausea And Vomiting Sodium Chloride (Sodium Chloride Flush Syringe 10 Ml) 10 ml IV BID JACE Sodium Chloride (Sodium Chloride Flush Syringe 10 Ml) 10 ml IV PRN PRN PRN Reason: LINE FLUSH Review of Systems Constitutional: no weight loss, no weight gain, no fever, no chills Ears, nose, mouth and throat: no ear pain, no tinnitis, no nose pain Breasts: no change in shape, no swelling, no mass Cardiovascular: chest pain, shortness of breath, decreased exercise tolerance Respiratory: no cough, no cough with sputum, no excessive sputum, no hemoptysis Gastrointestinal: no nausea, no diarrhea, no change in bowel habits Genitourinary Female: no menorrhagia, no urinary frequency, no stress incontinence, no post void dribbling, no urge incontinence Rectal: no pain, no incontinence Musculoskeletal: no neck stiffness, no neck pain, no arm numbness/tingling, no low back pain Integumentary: no rash, no pruritis, no sores, no wounds Neurological: no transient paralysis, no weakness, no numbness, no syncope, no change in speech, no memory loss Psychiatric: no anxiety, no memory loss, no change in appetite, no suicidal ideation Endocrine: no excessive sweating, no flushing Hematologic/Lymphatic: no easy bruising, no easy bleeding, no lymphadenopathy Allergic/Immunologic: no wheezing, no persistent infections Exam - Constitutional Vitals: Temp Pulse Resp BP Pulse Ox 98.1 F 96 H 45 H 133/85 95 01/31/20 09:49 01/31/20 12:31 01/31/20 12:31 01/31/20 12:31 01/31/20 12:31 General appearance: Present: mild distress - EENT Eyes: Present: PERRL ENT: hearing intact, clear oral mucosa - Neck Neck: Present: supple, normal ROM - Respiratory Respiratory effort: normal Respiratory: bilateral: CTA - Cardiovascular Heart Sounds: Present: S1 & S2. Absent: rub, click - Extremities Extremities: pulses symmetrical, No edema Peripheral Pulses: within normal limits - Abdominal General gastrointestinal: Present: soft, non-tender, non-distended, normal bowel sounds Female genitourinary: Present: normal - Integumentary Integumentary: Present: clear, warm, dry - Musculoskeletal Musculoskeletal: gait normal, strength equal bilaterally - Psychiatric Psychiatric: appropriate mood/affect, intact judgment & insight - Neurologic Neurologic: CNII-XII intact, moves all extremities HEART Score - HEART Score EKG: Non-specific Age: < 45 Risk factors: 1-2 risk factors Troponin: Troponin T 0.136 ng/mL (0.00-0.029) H* 01/31/20 07:23 Troponin: > 3x normal limit Results - Labs CBC & Chem 7: 01/31/20 07:23 01/31/20 07:23 Labs: Abnormal lab results 01/31/20 01/31/20 01/31/20 Range/Units 07:23 07:23 07:23 RDW 21.2 H (13.2-15.2) % [place] % (Auto) 12.5 H (0.0-7.3) % Total Bilirubin 1.30 H (0.1-1.2) mg/dL Alkaline Phosphatase 213 H (35-129) units/L Troponin T 0.136 H* (0.00-0.029) ng/mL NT-Pro-B Natriuret Pep 2400 H (0-450) pg/mL Albumin 3.2 L (3.9-5) g/dL Urine WBC (Auto) (0.0-6.0) /HPF 01/31/20 Range/Units 09:10 RDW (13.2-15.2) % [place] % (Auto) (0.0-7.3) % Total Bilirubin (0.1-1.2) mg/dL Alkaline Phosphatase (35-129) units/L Troponin T (0.00-0.029) ng/mL NT-Pro-B Natriuret Pep (0-450) pg/mL Albumin (3.9-5) g/dL Urine WBC (Auto) > 182.0 H (0.0-6.0) /HPF Assessment and Plan - Patient Problems (1) Congestive heart failure Status: Acute Qualifiers: Heart failure chronicity: acute on chronic Plan to address problem: Strict I/O, daily weight, monitor urine output every shift, supplemental oxygen, pulse oximetry, diuresis with Lasix, supportive care. (2) Colovaginal fistula Status: Acute Plan to address problem: Outpatient [employer] OPERATIONS [facility]NALYST follow-up, outpatient gastroenterology follow-up for colonoscopy. Patient counseled regarding noncompliance with outpatient follow-up. Surgery team consulted. No acute surgical intervention warranted. (3) Obesity hypoventilation syndrome Status: Acute Plan to address problem: Supplemental oxygen, pulse oximetry, outpatient pulmonary follow-up for sleep study, balanced diet, increase physical activity at discharge (4) DVT prophylaxis Status: Acute Plan to address problem: SCD to bilateral lower extremities while in bed, patient is ambulatory
[2020-01-31 14:29] VITALS: BP 151/114
[2020-02-02 16:16] LABS: Chol/HDL Ratio 5.66 %
== END 2020-01-31 14:32 | disposition left against medical advice (07) ==
LOC: ED 07:06 → 4A 12:54 → UNDOADMIN 12:54
DX: N82.3 Fistula of vagina to large intestine (principal); R07.89 Other chest pain; I50.9 Heart failure, unspecified; I11.0 Hypertensive heart disease with heart failure; G43.909 Migraine, unspecified, not intractable, without status migrainosus; Z90.710 Acquired absence of both cervix and uterus; Z98.890 Other specified postprocedural states; Z79.899 Other long term (current) drug therapy
CPT/HCPCS: 36415; 71045; 74176; 80053; 80061; 81001; 83880; 84484; 85025; 93005; 96374; 99285; J2405